=== PATIENT | female | born 1955 | race Caucasian/White ===

== ENCOUNTER 2020-10-12 05:43 | Outpatient (CLI) | payer MEDICARE ==
[~2020-10-12] VITALS: Ht 152.4 cm; Wt 58.2 kg
[2020-10-12] MEDS ORDERED: ATOR40TA70 PO (08:35)
[2020-10-12] MEDS ORDERED: ASPI-999 PO (08:35)
[2020-10-12] MEDS ORDERED: METF-397 PO (08:35)
[2020-10-12] MEDS ORDERED: LISI1TAB46 PO (08:35)
== END 2020-10-12 08:59 | disposition home or self-care (01) ==
LOC: PREOP 05:43
PROVIDERS: ATTEND Surgery
DX: Z01.818 Encounter for other preprocedural examination (principal)

== ENCOUNTER 2020-10-19 10:03 | Day surgery (SDC) | payer MEDICARE, OTHER ==
[2020-10-19] VITALS (7 sets, daily range): BP systolic 13–135; BP diastolic 51–62
[~2020-10-19] VITALS: Ht 152.7 cm; Wt 58.2 kg
[~2020-10-19 10:03] MED LIST: ASPI-999 PO; ATOR40TA70 PO; LISI1TAB46 PO; METF-397 PO
[2020-10-19] MEDS ORDERED: LACTATED RINGERS 1,000 ML IV STA (10:19)
[2020-10-19] MEDS ORDERED: PROPOFOL INJECTION 50 ML IV ONE (11:07)
--- NOTE | 2020-10-19 11:35 | Endoscopy Discharge Instruct ---
Endo Procedure/Findings Findings 1.: Polyp 2.: Internal Hemorrhoids Discharge Instructions - Activity: You might feel a little sleepy until tomorrow. This is due to the medicine you received to relax you. Until tomorrow, you should: NOT drive a car, operate machinery or power tools. NOT drink any alcoholic beverages. NOT make any important decisions or sign importortant papers. Do not return to work until tomorrow, unless otherwise instructed. Resume previous activities tomorrow. Diet: Start by taking liquids. If you tolerate liquids, advance to solid food. 1.: Colonscopy in 5 years Notify Physician - If you experience excessive bleeding, unusual abdominal pain, fever, or chest pain, contact your doctor immediately. CHAVEZ BURNETT DO Oct 19, 2020 11:35
--- NOTE | 2020-10-19 11:35 | Progress Note-Post Operative ---
Post-Operative Progess Note Surgeon (s)/Tree Chipper (s) Surgeon CHAVEZ BURNETT DO Tree Chipper: none Pre-Operative Diagnosis SCREENING Post-Operative Diagnosis polyp int hemorrhoids Procedure & Operative Findings Date of Procedure 10/19/20 Procedure Performed/Findings After informed consent was obtained, the patient was brought to the endoscopy suite and placed in the bed in the left lateral decubitus position. She was administered IV sedation by the LACROSSE COACH, who then monitored her vitals the entire time, heart rate, blood pressure and pulse ox and the scope was inserted, started the colonoscopy. Pushed all the way into about 150 cm to get all the way to cecum, took a picture of the appendiceal orifice, noted the ileocecal valve and then slowly withdrew the scope, insufflating to look circumferentiallly at the burdick. Starting in the cecum, up the ascending colon to the hepatic flexure, then down the transverse colon, splenic flexure, into the descending colon. Saw a polyp in the descending colon and did a snare polypectomy to remove it. Then continued down into the sigmoid and finally into the rectum, retroflexed in the rectal vault, saw some minimal internal hemorrhoids and took a picture of this. Then removed the scope. The patient tolerated the procedure and she recovered in the endoscopy suite. Anesthesia Type IV sedation by LACROSSE COACH Estimated Blood Loss Estimated blood loss (mL): scant Specimens/Packing Specimens Removed desc colon polyp CHAVEZ BURNETT DO Oct 19, 2020 11:35
--- NOTE | 2020-10-19 11:39 | Anesthesia-General Post-Op ---
MAC Patient Condition Mental Status/LOC: Same as Preop Cardiovascular: Satisfactory Nausea/Vomiting: Absent Respiratory: Satisfactory Pain: Controlled Complications: Absent Post Op Complications Complications None Follow Up Care/Instructions Patient Instructions None needed. Anesthesiology Discharge Order Discharge Order Patient is doing well, no complaints, stable vital signs, no apparent adverse anesthesia problems. No complications reported per nursing. FAM COHN CRNA Oct 19, 2020 11:39
== END 2020-10-19 12:30 | disposition home or self-care (01) ==
LOC: ENDO 10:03
PROVIDERS: ATTEND Surgery
DX: Z12.11 Encounter for screening for malignant neoplasm of colon (principal); K63.5 Polyp of colon; K64.8 Other hemorrhoids; E11.9 Type 2 diabetes mellitus without complications; E78.00 Pure hypercholesterolemia, unspecified; I10 Essential (primary) hypertension; Z79.82 Long term (current) use of aspirin; Z79.84 Long term (current) use of oral hypoglycemic drugs; Z79.899 Other long term (current) drug therapy
CPT/HCPCS: 82947; 88305

== ENCOUNTER 2023-02-20 17:43 | Inpatient (IN) | payer MEDICARE, OTHER ==
[~2023-02-20] VITALS: Ht 157.5 cm; Wt 57.5 kg
[2023-02-20] MEDS ORDERED: Tetanus/Diphtheria/Pertussis (Acell) ADULT Vaccine 0.5 ML IM ONE (18:00)
[2023-02-20] MEDS ORDERED: fentaNYL INJECTION 100 MCG/2 ML VIAL IVP STA (18:16)
--- NOTE | 2023-02-20 18:23 | Diagnostic Imaging Report ---
INDICATION: Right leg pain post injury. AP and lateral views of the right tibia and fibula are obtained at 6:09 PM There is an oblique fracture of the distal fibula at the ankle joint level. There is a fracture of the medial malleolus of the distal tibia with lateral displacement of the talus relative to the tibia. Proximal portions of the tibia and fibula are intact. IMPRESSION: 1. There are distal tibial and fibular fractures at the ankle joint, see separate dictation. The proximal portions of the tibia and fibula are intact. Dictated by: Dictated on workstation # [id number]
--- NOTE | 2023-02-20 18:26 | Diagnostic Imaging Report ---
INDICATION: Right ankle pain post injury AP, oblique, and lateral views of the right foot are obtained. There is an acute oblique fracture of the distal fibula with about 6 mm of displacement. There is a horizontal fracture of the medial malleolus of the distal tibia with displacement by about 7 mm. There is lateral subluxation of the talus relative to the distal tibia. IMPRESSION: Acute distal tibial and fibular fractures as above with displacement and lateral subluxation of the talus relative to the tibia. Dictated by: Dictated on workstation # [id number]
[2023-02-20] MEDS ORDERED: NS IV 1000 ML 1,000 ML IV SCH (18:30)
[2023-02-20] MEDS ORDERED: LIDOCAINE UROJET 2% GEL 10 ML PKG TOP ONE (18:30)
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
[2023-02-20 18:35] LABS: BASOPHILS # (AUTO) 0.1 10^3/uL (0.0-0.1); BASOPHILS % (AUTO) 1 % (0-10); EOSINOPHILS # (AUTO) 0.2 10^3/uL (0.0-0.3); EOSINOPHILS % (AUTO) 1 % (0-10); HEMATOCRIT 39 % (35-52); LYMPHOCYTES # (AUTO) 2.1 10^3/uL (1.0-4.0); LYMPHOCYTES % (AUTO) 13 % (12-44); MEAN CORPUSCULAR HEMOGLOBIN 30 pg (25-34); MEAN CORPUSCULAR HGB CONC 33 g/dL (32-36); MEAN CORPUSCULAR VOLUME 90 fL (80-99); MEAN PLATELET VOLUME 9.1 fL (9.0-12.2); MONOCYTES # (AUTO) 0.6 10^3/uL (0.0-1.0); MONOCYTES % (AUTO) 4 % (0-12); NEUTROPHILS # (AUTO) 12.8 10^3/uL (1.8-7.8); NEUTROPHILS % (AUTO) 81 % (42-75); PLATELET COUNT 342 10^3/uL (130-400); WHITE BLOOD COUNT 15.9 10^3/uL (4.3-11.0)
[2023-02-20] MEDS ORDERED: MUPIROCIN 2% OINTMENT 22 GM TUBE ONE (18:35)
--- NOTE | 2023-02-20 18:37 | Diagnostic Imaging Report ---
HISTORY: Right foot pain TECHNIQUE: 3 views of the right foot COMPARISON: None FINDINGS: There is an oblique fracture of the right great toe proximal phalangeal shaft with minimal displacement. There does appear to be a nondisplaced fracture of the 2nd toe middle phalangeal shaft and head. There is a minimally displaced transverse fracture across the 5th toe middle phalangeal shaft. There is a questionable fracture of the 3rd metatarsal base, which would be nondisplaced. There are fractures about the distal tibia and fibula as well as malalignment, which is better seen on the concurrent ankle radiographs. IMPRESSION: 1. Fractures of the right 1st, 2nd, and 5th toes. Suspected fracture of the 3rd metatarsal base. 2. Distal tibia and fibula fractures are better seen on the concurrent ankle radiographs. Dictated by: Dictated on workstation # [id number]
[2023-02-20] MEDS: MUPIROCIN 2% OINTMENT 22 GM TUBE TOP SCH (18:39)
[2023-02-20 18:46] LABS: ALBUMIN 4.1 GM/DL (3.2-4.5); POTASSIUM 4.6 MMOL/L (3.6-5.0)
[2023-02-20 18:47] LABS: CALCIUM 9.2 MG/DL (8.5-10.1)
[2023-02-20 18:48] LABS: INR 0.9 (0.8-1.4); PROTHROMBIN TIME PATIENT 12.6 SEC (12.2-14.7)
[2023-02-20 18:49] LABS: TOTAL PROTEIN 7.9 GM/DL (6.4-8.2)
[2023-02-20 18:51] LABS: BILIRUBIN,TOTAL 0.5 MG/DL (0.1-1.0)
[2023-02-20 18:52] LABS: CREATININE SERUM 1.58 MG/DL (0.60-1.30)
[2023-02-20 18:55] LABS: BAND NEUTROPHILS 0 %; BASOPHILS % (MANUAL) 0 %; EOSINOPHILS % (MANUAL) 1 %; LYMPHOCYTES % (MANUAL) 10 %; MONOCYTES % (MANUAL) 3 %; NEUTROPHILS % (MANUAL) 86 %; RBC MORPH NORMAL
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
[2023-02-20 19:29] LABS: BILIRUBIN,URINE NEGATIVE (NEGATIVE); CLARITY,URINE CLEAR; COLOR,URINE YELLOW; GLUCOSE, URINE (UA) NEGATIVE (NEGATIVE); KETONES,URINE TRACE (NEGATIVE); LEUKOCYTE ESTERASE ,URINE NEGATIVE (NEGATIVE); NITRITE,URINE NEGATIVE (NEGATIVE); PH,URINE 6.5 (5-9); PROTEIN,URINE 2+ (NEGATIVE); RBC,URINE 0-2 /HPF; WBC,URINE RARE /HPF
[2023-02-20 19:30] LABS: BACTERIA,URINE NEGATIVE /HPF
[2023-02-20 19:55] VITALS: BP 188/80
[2023-02-20] MEDS ORDERED: diphenhydrAMINE INJ 50 MG/ML VIAL IVP PRN (20:00)
[2023-02-20] MEDS ORDERED: ONDANSETRON 4 MG ORAL DISSOLVE TABLET PO PRN (20:00)
[2023-02-20] MEDS ORDERED: cloNIDine 0.1 MG TABLET PO PRN (20:00)
[2023-02-20] MEDS ORDERED: CALCIUM CARBONATE 500 MG CHEW TABLET PO PRN (20:00)
[2023-02-20] MEDS ORDERED: ANTACID SUSPENSION 30 ML UDC PO PRN (20:00)
[2023-02-20] MEDS ORDERED: ONDANSETRON INJECTION 4 MG/2 ML (SDV) IV PRN (20:00)
[2023-02-20] MEDS ORDERED: MILK OF MAGNESIA 400 MG/5 ML 30 ML UDC PO PRN (20:00)
[2023-02-20] MEDS ORDERED: LACTULOSE SYRUP 10GM/15ML 30ML UDC PO PRN (20:00)
[2023-02-20] MEDS ORDERED: diphenhydrAMINE 25 MG TABLET PO PRN (20:00)
[2023-02-20] MEDS ORDERED: BISACODYL 10 MG SUPPOSITORY PR PRN (20:00)
[2023-02-20] MEDS ORDERED: RT-Ipratropium/Albuterol NEB 3 ML VIAL INH PRN (20:15)
[2023-02-20 20:35] VITALS: BP 147/97
[2023-02-20] MEDS: inSUlin ASPART 1 UNIT/0.01 ML (PER UNIT) SC SCH (20:55)
[2023-02-20] MEDS ORDERED: NS IV 1000 ML 1,000 ML ONE (21:02)
[2023-02-20] MEDS ORDERED: oxyCODONE IMMEDIATE RELEASE 5 MG TABLET ONE (21:03)
[2023-02-20] MEDS: oxyCODONE IMMEDIATE RELEASE 5 MG TABLET PO PRN (21:06)
[2023-02-20] MEDS: NS IV 1000 ML 1,000 ML IV SCH (21:07)
[2023-02-20] MEDS: ENOXAPARIN 40 MG/0.4 ML SYRINGE SC SCH (22:13)
[2023-02-20] MEDS: HYDROmorphone INJECTION 2 MG/ML VIAL IV PRN (22:13)
[2023-02-20] MEDS: MELATONIN 3 MG TABLET PO PRN (22:14)
[2023-02-20] MEDS: SENNOSIDES 8.6 MG TABLET PO SCH (22:26)
[2023-02-20] MEDS: DOCUSATE SODIUM 100 MG CAPSULE PO SCH (22:26)
[2023-02-20 23:06] VITALS: BP 154/78
[2023-02-21] VITALS (13 sets, daily range): BP systolic 112–168; BP diastolic 52–81
[2023-02-21] MEDS: HYDROmorphone INJECTION 2 MG/ML VIAL IV PRN ×3 (00:20→23:49)
[2023-02-21] MEDS: oxyCODONE IMMEDIATE RELEASE 5 MG TABLET PO PRN ×4 (03:14→22:14)
[2023-02-21] MEDS: inSUlin ASPART 1 UNIT/0.01 ML (PER UNIT) SC SCH ×4 (05:15→20:11)
[2023-02-21 07:07] LABS: BASOPHILS # (AUTO) 0.1 10^3/uL (0.0-0.1); BASOPHILS % (AUTO) 1 % (0-10); EOSINOPHILS % (AUTO) 0 % (0-10); HEMATOCRIT 34 % (35-52); HEMOGLOBIN 10.9 g/dL (11.5-16.0); LYMPHOCYTES # (AUTO) 1.6 10^3/uL (1.0-4.0); LYMPHOCYTES % (AUTO) 15 % (12-44); MEAN CORPUSCULAR HEMOGLOBIN 30 pg (25-34); MEAN CORPUSCULAR HGB CONC 33 g/dL (32-36); MEAN CORPUSCULAR VOLUME 92 fL (80-99); MEAN PLATELET VOLUME 9.4 fL (9.0-12.2); MONOCYTES # (AUTO) 0.6 10^3/uL (0.0-1.0); MONOCYTES % (AUTO) 6 % (0-12); NEUTROPHILS # (AUTO) 8.4 10^3/uL (1.8-7.8); NEUTROPHILS % (AUTO) 78 % (42-75); PLATELET COUNT 285 10^3/uL (130-400); WHITE BLOOD COUNT 10.8 10^3/uL (4.3-11.0)
[2023-02-21] MEDS ORDERED: FLU HIGH DOSE (65+ YOA) 240 MCG/0.7 ML 2023-24 (FLUZONE) IM ONE (07:30)
[2023-02-21 07:31] LABS: ALBUMIN 3.5 GM/DL (3.2-4.5); BILIRUBIN,TOTAL 0.6 MG/DL (0.1-1.0); CALCIUM 8.4 MG/DL (8.5-10.1); CREATININE SERUM 1.29 MG/DL (0.60-1.30); POTASSIUM 4.6 MMOL/L (3.6-5.0); TOTAL PROTEIN 6.6 GM/DL (6.4-8.2)
[2023-02-21] MEDS: MUPIROCIN 2% OINTMENT 22 GM TUBE TOP SCH ×2 (07:54→19:57)
[2023-02-21] MEDS: SENNOSIDES 8.6 MG TABLET PO SCH ×2 (07:54→20:11)
[2023-02-21] MEDS: DOCUSATE SODIUM 100 MG CAPSULE PO SCH ×2 (07:54→20:11)
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
[2023-02-21] MEDS ORDERED: ceFAZolin INJECTION 2,000 MG in NS (IVPB) 50 ML 50 ML IV ONE (09:30)
[2023-02-21] MEDS: NS IV 1000 ML 1,000 ML IV SCH ×2 (09:34→22:12)
[2023-02-21] MEDS ORDERED: BUPIVACAINE 0.25% 30 ML VIAL ONE (10:00)
[2023-02-21] MEDS ORDERED: SEVOFLURANE (ULTANE) 15 ML INHAL SOLN ONE ×2 (10:37→14:07)
[2023-02-21] MEDS ORDERED: proPOfol INJECTION 200 MG/20 ML VIAL IV ONE (10:37)
[2023-02-21] MEDS ORDERED: MIDAZOLAM INJ 2 MG/2 ML VIAL ONE (10:37)
[2023-02-21] MEDS ORDERED: fentaNYL INJECTION 100 MCG/2 ML VIAL ONE (10:37)
[2023-02-21] MEDS ORDERED: LIDOCAINE PF 2% 5 ML VIAL ONE (10:37)
[2023-02-21] MEDS ORDERED: ceFAZolin 1,000 MG VIAL IV ONE (11:45)
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
[2023-02-21] MEDS ORDERED: PHYT1CAP5 PO (12:17)
[2023-02-21] MEDS ORDERED: [UNRECOGNIZED DRUG - OTHER] PO (12:17)
[2023-02-21] MEDS ORDERED: BERBERINE PO (12:17)
[2023-02-21] MEDS ORDERED: ceFAZolin INJECTION 2,000 MG ONE (12:24)
[2023-02-21] MEDS ORDERED: NS (IVPB) 50 ML 50 ML ONE (12:24)
[2023-02-21] MEDS: LACTATED RINGERS 1,000 ML 1,000 ML IV PRN ×2 (12:29→13:35)
[2023-02-21] MEDS ORDERED: BUPIVACAINE 0.25% 30 ML VIAL INJ ONE (13:03)
[2023-02-21] MEDS ORDERED: BACITRACIN OINTMENT 28 GM TUBE ONE (13:41)
[2023-02-21] MEDS ORDERED: BACITRACIN OINTMENT 28 GM TUBE TOP ONE (13:42)
--- NOTE | 2023-02-21 14:20 | Anesthesia-General Post-Op ---
General Patient Condition Mental Status/LOC: Same as Preop Cardiovascular: Satisfactory Nausea/Vomiting: Absent Respiratory: Satisfactory Pain: Controlled Complications: Absent Post Op Complications Complications None Follow Up Care/Instructions Patient Instructions None needed. Anesthesia/Patient Condition Patient Condition Patient is doing well, no complaints, stable vital signs, no apparent adverse anesthesia problems. No complications reported per nursing. CORINNA KING CRNA Feb 21, 2023 14:20
[2023-02-21] MEDS ORDERED: HYDROmorphone INJECTION 2 MG/ML VIAL ONE (14:27)
[2023-02-21] MEDS ORDERED: fentaNYL INJECTION 100 MCG/2 ML VIAL IVP ONE (14:30)
[2023-02-21] MEDS ORDERED: ONDANSETRON INJECTION 4 MG/2 ML (SDV) IVP PRN (14:30)
[2023-02-21] MEDS ORDERED: HYDROmorphone INJECTION 2 MG/ML VIAL IV ONE (14:30)
--- NOTE | 2023-02-21 14:33 | Operative Report - Ortho ---
Operative Report Surgeon (s)/Elderly Companion (s) Surgeon EVELIN CORNEJO MD Elderly Companion n/a Pre-Operative Diagnosis R Bimalleolar Ankle Fracture with Syndesmotic Injury/R Foot Fractures Post-Operative Diagnosis same Operative Report Date of Procedure: Feb 21, 2023 Name of Procedure Performed: 1) Open Reduction and Internal Fixation of Right Bimalleolar Ankle Fracture 2) Open Reduction and Internal Fixation of Right Syndesmotic Injury 3) Closed Treatment of Right 3rd Metatarsal Base fracture and Great toe, 2nd toe, and 5th toe fractures Description & Findings After obtaining informed consent and marking the patient, patient did receive intravenous antibiotics. Taken to the operating room and general anesthesia was induced. Surgical timeout was taken. The right lower extremity was prepped and draped in the usual sterile fashion. Attention was initially turned to the fibula fracture, incision was made centered over the fracture. Dissection was carried down to the fracture and a periosteal elevator was used to expose the fibula proximally and distally. The fracture was provisionally reduced using clamps. A [employer] distal fibular plate was selected and placed. A wire was placed distally to position and temporarily hold the plate. A nonlocking screw was placed in the diaphysis of the fibula. A nonlocking screw was then placed d istally. C-arm demonstrated good position of the plate with near anatomic reduction of the fracture. Wire through the plate was removed. Locking screws were used to fill the distal holes of the plate. Two additional locking screws were placed in the proximal portion of the plate. Wires and clamp were removed. C-arm demonstrated appropriate position of the plate and screws and maintained reduction of the fracture. Attention was turned to the medial side. 2 K-wires for 4.0 cannulated screws were placed percutaneously through the medial malleolar fragment and across the fracture site. The first wire was anterior and the second wire was posterior. C-arm was used to confirm position of the wires. After drilling the distal cortex, 2 4.0 mm cannulated screws were then placed over the wires; the anterior screw measured 34 mm and the posterior screw was 44 mm and a washer was added to the anterior one for compression purposes. Wires were removed. Stress C-arm images were obtained and demonstrated widening of the mortise. Periarticular clamp was placed and the syndemosis was reduced. Drill was used to cross 3 cortices. a 46 mm 3.5 screw was placed for syndesmotic fixation. Clamp was removed and syndesmosis reduction was maintained. The patient did have a nondisplaced fracture of the 3rd metatarsal base as well as fractures of the proximal phalanx of the great toe and middle phalanges of the 2nd and 5th toes. These will all be treated in closed fashion. C-arm images in the AP, mortise, and lateral views and demonstrated appropriate reduction of the fractures and hardware in good position. Images were transferred to PACS. Wounds were irrigated with normal saline. Closed with 0 vicryl, 3-0 vicryl, and a combination of 3-0 and 4-0 nylon. Wounds were in jected with local anesthetic. Dressed with xeroform, 4x4s, ABD, cast padding, soft roll, posterior splint, and VARUN wrap. Patient tolerated the procedure well and was stable to the recovery room. Anesthesia Type General Estimated Blood Loss minimal Specimen(s) collected/removed None EVELIN CORNEJO MD Feb 21, 2023 14:33
--- NOTE | 2023-02-21 17:44 | Diagnostic Imaging Report ---
INDICATION: Right ankle fractures, ORIF Intraoperative fluoroscopy views were obtained with the portable intensifier in surgery during ORIF of right ankle fractures. 65.5 seconds of fluoroscopy time were used. 3 views were obtained, 1.45 mGy exposure Intraoperative views demonstrate plate and screws across the distal fibular fracture in anatomic alignment with 2 screws across the medial malleolar fracture of the distal tibia. Single fusion screw between the tibia and fibula is noted. The alignment appears anatomic. IMPRESSION: Anatomic alignment status post ORIF of right ankle fractures. Dictated by: Dictated on workstation # [id number]
[2023-02-21] MEDS: ACETAMINOPHEN 325 MG TABLET PO PRN ×2 (17:59→22:14)
[2023-02-21] MEDS: ENOXAPARIN 40 MG/0.4 ML SYRINGE SC SCH (20:06)
[2023-02-21] MEDS: MELATONIN 3 MG TABLET PO PRN (22:14)
[2023-02-22 03:44] VITALS: BP 133/73
[2023-02-22] MEDS: oxyCODONE IMMEDIATE RELEASE 5 MG TABLET PO PRN ×3 (05:36→21:58)
[2023-02-22] MEDS: NS IV 1000 ML 1,000 ML IV SCH ×2 (05:37→19:20)
[2023-02-22] MEDS: inSUlin ASPART 1 UNIT/0.01 ML (PER UNIT) SC SCH ×4 (05:40→20:06)
[2023-02-22 05:55] LABS: BASOPHILS # (AUTO) 0.1 10^3/uL (0.0-0.1); BASOPHILS % (AUTO) 1 % (0-10); EOSINOPHILS # (AUTO) 0.1 10^3/uL (0.0-0.3); EOSINOPHILS % (AUTO) 1 % (0-10); HEMATOCRIT 31 % (35-52); HEMOGLOBIN 9.9 g/dL (11.5-16.0); LYMPHOCYTES # (AUTO) 1.2 10^3/uL (1.0-4.0); LYMPHOCYTES % (AUTO) 12 % (12-44); MEAN CORPUSCULAR HEMOGLOBIN 29 pg (25-34); MEAN CORPUSCULAR HGB CONC 32 g/dL (32-36); MEAN CORPUSCULAR VOLUME 91 fL (80-99); MEAN PLATELET VOLUME 9.8 fL (9.0-12.2); MONOCYTES # (AUTO) 0.6 10^3/uL (0.0-1.0); MONOCYTES % (AUTO) 6 % (0-12); NEUTROPHILS % (AUTO) 80 % (42-75); PLATELET COUNT 234 10^3/uL (130-400)
[2023-02-22 06:13] LABS: ALBUMIN 3.1 GM/DL (3.2-4.5); BILIRUBIN,TOTAL 0.4 MG/DL (0.1-1.0); CALCIUM 8.1 MG/DL (8.5-10.1); CREATININE SERUM 1.37 MG/DL (0.60-1.30); POTASSIUM 4.6 MMOL/L (3.6-5.0); TOTAL PROTEIN 6.1 GM/DL (6.4-8.2)
[2023-02-22 07:30] VITALS: BP 131/71
[2023-02-22] MEDS: MUPIROCIN 2% OINTMENT 22 GM TUBE TOP SCH ×2 (08:31→19:20)
[2023-02-22] MEDS: SENNOSIDES 8.6 MG TABLET PO SCH ×2 (08:31→19:20)
[2023-02-22] MEDS: DOCUSATE SODIUM 100 MG CAPSULE PO SCH ×2 (08:31→19:20)
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
[2023-02-22] MEDS: HYDROmorphone INJECTION 2 MG/ML VIAL IV PRN (08:57)
[2023-02-22 11:19] VITALS: BP 129/70
--- NOTE | 2023-02-22 12:19 | Progress Note - Ortho ---
Progress Note Subjective Date of Exam 02/22/23 Chief Complaint POD #1 ORIF of R Bimalleolar ankle fracture HPI/Events since last exam having some difficulty with pain, concerned about being discharged Review of Systems - Allergies: Coded Allergies: AUDREYANo Known Allergies (Verified Allergy, Unknown, 01/05/07) Home Meds Reported Medications [Bloodsyl] No Conflict Check, 1 EA PO DAILY 02/21/23 Phytosterol/Pantethine (Cholestoff Complete 300Mg Sfgl) 300 Mg-100 Mg Capsule, 1 EACH PO 1800 W/MEAL, CAP 02/21/23 [Berberine] No Conflict Check, 1 EA PO BID WITH MEALS 02/21/23 Aspirin (Aspirin) 81 Mg Tab.chew, 81 MG PO DAILY, TAB 10/12/20 Discontinued Reported Medications Metformin HCl (Metformin HCl) 500 Mg Tablet, 500 MG PO BID, TAB 10/12/20 Lisinopril/Hydrochlorothiazide (Lisinopril-Hctz 20-12.5 mg Tab) 1 Each Tablet, 1 EACH PO DAILY, TAB 10/12/20 Atorvastatin Calcium (Atorvastatin Calcium) 40 Mg Tablet, 40 MG PO HS, TAB 10/12/20 Objective Exam Right Ankle: Splint clean, dry, and intact, toes flex and extend, cap refill brisk Vital Signs Vital Signs Date Time Temp Pulse Resp B/P (MAP) Pulse Ox O2 Delivery O2 Flow Rate FiO2 02/22/23 11:19 36.6 70 17 129/70 (89) 99 Room Air 02/22/23 11:06 94 Room Air 0.00 02/22/23 08:00 98 Room Air 02/22/23 07:30 36.7 72 17 131/71 (91) 98 Room Air 02/22/23 03:44 36.8 81 16 133/73 (93) 96 Room Air 0.00 0.00 02/21/23 23:06 36.2 73 16 125/71 (89) 98 Room Air 02/21/23 20:20 36.5 85 18 112/68 (83) 97 Room Air 02/21/23 20:13 Room Air 02/21/23 15:21 36.5 62 18 134/58 (83) 100 Room Air 02/21/23 15:15 Room Air 02/21/23 15:10 36.1 20 120/62 (81) 100 Room Air 02/21/23 15:00 20 120/62 (81) 100 Room Air 02/21/23 15:00 Room Air 02/21/23 14:50 20 133/54 (80) 100 OxyMask 10.00 02/21/23 14:45 Face Tent 10.00 02/21/23 14:40 20 137/52 (80) 100 Face Tent 10.00 02/21/23 14:30 Face Tent 10.00 02/21/23 14:30 20 133/55 (81) 100 Face Tent 10.00 02/21/23 14:20 20 125/58 (80) 100 Face Tent 10.00 02/21/23 14:15 Face Tent 10.00 02/21/23 14:15 36.1 20 120/57 (78) 100 Face Tent 10.00 I & O 02/22/23 07:00 Intake Total 2400 ml Output Total 2050 ml Balance 350 ml Lab Results Laboratory Tests 02/21/23 20:06: Glucometer 118H 02/22/23 05:25: Glucometer 128H 02/22/23 05:32: White Blood Count 10.0, Red Blood Count 3.37L, Hemoglobin 9.9L, Hematocrit 31L, Mean Corpuscular Volume 91, Mean Corpuscular Hemoglobin 29, Mean Corpuscular Hemoglobin Concent 32, Red Cell Distribution Width 13.7, Platelet Count 234, Mean Platelet Volume 9.8, Immature Granulocyte % (Auto) 0, Neutrophils (%) (Auto) 80H, Lymphocytes (%) (Auto) 12, Monocytes (%) (Auto) 6, Eosinophils (%) (Auto) 1, Basophils (%) (Auto) 1, Neutrophils # (Auto) 8.0H, Lymphocytes # (Auto) 1.2, Monocytes # (Auto) 0.6, Eosinophils # (Auto) 0.1, Basophils # (Auto) 0.1, Immature Granulocyte # (Auto) 0.0, Sodium Level 138, Potassium Level 4.6, Chloride Level 105, Carbon Dioxide Level 23, Anion Gap 10, Blood Urea Nitrogen 15, Creatinine 1.37H, Estimat Glomerular Filtration Rate 42, BUN/Creatinine Ratio 11, Glucose Level 163H, Calcium Level 8.1L, Corrected Calcium 8.8, Total Bilirubin 0.4, Aspartate Amino Transf (AST/SGOT) 18, Alanine Aminotransferase (ALT/SGPT) 11, Alkaline Phosphatase 76, Total Protein 6.1L, Albumin 3.1L 02/22/23 10:33: Glucometer 103 Microbiology 02/20/23 MRSA Screen - Final, Complete MRSA not isolated Assessment and Plan Assessment Right Bimalleolar Ankle Fracture Multiple Foot Fractures Crush Injury with open wounds on right foot Problem List Right Bimalleolar Ankle Fracture Multiple Foot Fractures Crush Injury with open wounds on right foot Plan NWB on Right leg Continue Splint Begin dressing changes on foot tomorrow May require dressing changes for extended period of time; consider swing bed Final Diagonsis Right Bimalleolar Ankle Fracture Multiple Foot Fractures Crush Injury with open wounds on right foot Level of the visit: Level 3 (global) Clinical Quality Measures DVT/VTE Risk/Contraindication: Contraindications-Mechi: Other *list below* Other: fx EVELIN CORNEJO MD Feb 22, 2023 12:19
[2023-02-22 15:54] VITALS: BP 131/60
[2023-02-22 19:17] VITALS: BP 132/60
[2023-02-22] MEDS: ENOXAPARIN 40 MG/0.4 ML SYRINGE SC SCH (19:20)
[2023-02-22] MEDS: MELATONIN 3 MG TABLET PO PRN (21:58)
[2023-02-22 23:15] VITALS: BP 126/77
[2023-02-23] MEDS: HYDROmorphone INJECTION 2 MG/ML VIAL IV PRN (00:06)
[2023-02-23 05:15] LABS: BASOPHILS # (AUTO) 0.1 10^3/uL (0.0-0.1); BASOPHILS % (AUTO) 1 % (0-10); EOSINOPHILS # (AUTO) 0.2 10^3/uL (0.0-0.3); EOSINOPHILS % (AUTO) 2 % (0-10); HEMATOCRIT 31 % (35-52); LYMPHOCYTES # (AUTO) 1.5 10^3/uL (1.0-4.0); LYMPHOCYTES % (AUTO) 16 % (12-44); MEAN CORPUSCULAR HEMOGLOBIN 30 pg (25-34); MEAN CORPUSCULAR HGB CONC 32 g/dL (32-36); MEAN CORPUSCULAR VOLUME 94 fL (80-99); MEAN PLATELET VOLUME 9.4 fL (9.0-12.2); MONOCYTES # (AUTO) 0.7 10^3/uL (0.0-1.0); MONOCYTES % (AUTO) 7 % (0-12); NEUTROPHILS # (AUTO) 7.3 10^3/uL (1.8-7.8); NEUTROPHILS % (AUTO) 75 % (42-75); PLATELET COUNT 265 10^3/uL (130-400); WHITE BLOOD COUNT 9.8 10^3/uL (4.3-11.0)
[2023-02-23 05:23] LABS: POTASSIUM 4.5 MMOL/L (3.6-5.0)
[2023-02-23 05:24] LABS: CALCIUM 8.4 MG/DL (8.5-10.1)
[2023-02-23 05:25] LABS: TOTAL PROTEIN 6.2 GM/DL (6.4-8.2)
[2023-02-23 05:27] LABS: BILIRUBIN,TOTAL 0.4 MG/DL (0.1-1.0)
[2023-02-23] MEDS: inSUlin ASPART 1 UNIT/0.01 ML (PER UNIT) SC SCH ×2 (05:28→12:01)
[2023-02-23 05:29] LABS: CREATININE SERUM 1.42 MG/DL (0.60-1.30)
[2023-02-23 08:02] VITALS: BP 129/59
--- NOTE | 2023-02-23 08:43 | Progress Note - Ortho ---
Progress Note Subjective Date of Exam 02/23/23 Chief Complaint POD #2 ORIF of R Bimalleolar Ankle Fracture HPI/Events since last exam doing okay from pain standpoint, no specific issues Review of Systems - Allergies: Coded Allergies: NKANo Known Allergies (Verified Allergy, Unknown, 01/05/07) Home Meds Reported Medications [Bloodsyl] No Conflict Check, 1 EA PO DAILY 02/21/23 Phytosterol/Pantethine (Cholestoff Complete 300Mg Sfgl) 300 Mg-100 Mg Capsule, 1 EACH PO 1800 W/MEAL, CAP 02/21/23 [Berberine] No Conflict Check, 1 EA PO BID WITH MEALS 02/21/23 Aspirin (Aspirin) 81 Mg Tab.chew, 81 MG PO DAILY, TAB 10/12/20 Discontinued Reported Medications Metformin HCl (Metformin HCl) 500 Mg Tablet, 500 MG PO BID, TAB 10/12/20 Lisinopril/Hydrochlorothiazide (Lisinopril-Hctz 20-12.5 mg Tab) 1 Each Tablet, 1 EACH PO DAILY, TAB 10/12/20 Atorvastatin Calcium (Atorvastatin Calcium) 40 Mg Tablet, 40 MG PO HS, TAB 10/12/20 Objective Exam R Ankle: Splint in place, toes flex and extend, sensation grossly intact to light touch, cap refill present Vital Signs Vital Signs Date Time Temp Pulse Resp B/P (MAP) Pulse Ox O2 Delivery O2 Flow Rate FiO2 02/23/23 08:02 36.6 76 17 129/59 (82) 96 Room Air 02/22/23 23:15 36.2 81 20 126/77 (93) 97 Room Air 02/22/23 19:33 Room Air 02/22/23 19:17 36.9 80 18 132/60 (84) 94 Room Air 02/22/23 15:54 36.7 75 16 131/60 (83) 99 Room Air 02/22/23 11:19 36.6 70 17 129/70 (89) 99 Room Air 02/22/23 11:06 94 Room Air 0.00 I & O 02/23/23 07:00 Intake Total 2130 ml Output Total 2450 ml Balance -320 ml Lab Results Laboratory Tests 02/22/23 10:33: Glucometer 103 02/22/23 15:59: Glucometer 111H 02/22/23 20:02: Glucometer 107 02/23/23 05:08: White Blood Count 9.8, Red Blood Count 3.34L, Hemoglobin 10.0L, Hematocrit 31L, Mean Corpuscular Volume 94, Mean Corpuscular Hemoglobin 30, Mean Corpuscular Hemoglobin Concent 32, Red Cell Distribution Width 13.8, Platelet Count 265, Mean Platelet Volume 9.4, Immature Granulocyte % (Auto) 0, Neutrophils (%) (Auto) 75, Lymphocytes (%) (Auto) 16, Monocytes (%) (Auto) 7, Eosinophils (%) (Auto) 2, Basophils (%) (Auto) 1, Neutrophils # (Auto) 7.3, Lymphocytes # (Auto) 1.5, Monocytes # (Auto) 0.7, Eosinophils # (Auto) 0.2, Basophils # (Auto) 0.1, Immature Granulocyte # (Auto) 0.0, Sodium Level 137, Potassium Level 4.5, Chloride Level 104, Carbon Dioxide Level 22, Anion Gap 11, Blood Urea Nitrogen 1 5, Creatinine 1.42H, Estimat Glomerular Filtration Rate 41, BUN/Creatinine Ratio 11, Glucose Level 105, Calcium Level 8.4L, Corrected Calcium 9.2, Total Bilirubin 0.4, Aspartate Amino Transf (AST/SGOT) 19, Alanine Aminotransferase (ALT/SGPT) 9, Alkaline Phosphatase 66, Total Protein 6.2L, Albumin 3.0L Microbiology 02/20/23 MRSA Screen - Final, Complete MRSA not isolated Assessment and Plan Assessment R Bimalleolar Ankle Fx s/p ORIF Multiple R Foot Fxs Open wounds after crush injury to right foot Problem List R Bimalleolar Ankle Fx s/p ORIF Multiple R Foot Fxs Open wounds after crush injury to right foot Plan NWB on R Leg Splint versus Cam boot to facilitate dressing changes I have consulted Dr. Churchill for her expertise on wound care in regards to the right foot Final Diagonsis R Bimalleolar Ankle Fx s/p ORIF Multiple R Foot Fxs Open wounds after crush injury to right foot Level of the visit: Level 3 (global) Clinical Quality Measures DVT/VTE Risk/Contraindication: Contraindications-Mechi: Other *list below* Other: fx EVELIN CORNEJO MD Feb 23, 2023 08:43
[2023-02-23] MEDS: SENNOSIDES 8.6 MG TABLET PO SCH (08:52)
[2023-02-23] MEDS: DOCUSATE SODIUM 100 MG CAPSULE PO SCH (08:52)
[2023-02-23] MEDS: oxyCODONE IMMEDIATE RELEASE 5 MG TABLET PO PRN ×2 (09:00→13:33)
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
[2023-02-23] MEDS: NS IV 1000 ML 1,000 ML IV SCH (09:23)
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
[2023-02-23 11:54] VITALS: BP 133/63
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
== END 2023-02-23 13:35 | DRG 494 ==
LOC: EDUNIT# 17:43 → ER 17:45 → 4TH 19:47
PROVIDERS: ADMIT Internal Medicine; ATTEND Internal Medicine
PROC: 2W3SX1Z Immobilization of Right Foot using Splint (ICD-10-PCS; 2023-02-20)
PROC: 0SSF04Z Reposition Right Ankle Joint with Internal Fixation Device, Open Approach (ICD-10-PCS; 2023-02-21)
PROC: 0QSQ34Z Reposition Right Toe Phalanx with Internal Fixation Device, Percutaneous Approach (ICD-10-PCS; 2023-02-21)
PROC: 0QSG04Z Reposition Right Tibia with Internal Fixation Device, Open Approach (ICD-10-PCS; principal; 2023-02-21 12:29)
DX: S82.841A Displaced bimalleolar fracture of right lower leg, initial encounter for closed fracture (principal); S92.331A Displaced fracture of third metatarsal bone, right foot, initial encounter for closed fracture; Z79.82 Long term (current) use of aspirin; Z79.84 Long term (current) use of oral hypoglycemic drugs; Z79.899 Other long term (current) drug therapy; E78.00 Pure hypercholesterolemia, unspecified; I10 Essential (primary) hypertension; G89.29 Other chronic pain; M54.9 Dorsalgia, unspecified; E11.9 Type 2 diabetes mellitus without complications; S92.411A Displaced fracture of proximal phalanx of right great toe, initial encounter for closed fracture; S92.521A Displaced fracture of middle phalanx of right lesser toe(s), initial encounter for closed fracture; S93.431A Sprain of tibiofibular ligament of right ankle, initial encounter; V49.9XXA Car occupant (driver) (passenger) injured in unspecified traffic accident, initial encounter; Y92.9 Unspecified place or not applicable; Z87.891 Personal history of nicotine dependence
CPT/HCPCS: 36415; 73590; 73610; 73630; 76000; 80053; 81000; 82947; 85007; 85025; 85027; 85610; 85730; 87081; 90471; 90715; 93041; 94760; 96361; 96374

== ENCOUNTER 2023-02-23 10:27 | Inpatient (IN) | payer MEDICARE, OTHER ==
[~2023-02-23] VITALS: Ht 157.5 cm; Wt 58.1 kg
[~2023-02-23 10:27] MED LIST changes: +BERBERINE PO; +PHYT1CAP5 PO; +[UNRECOGNIZED DRUG - OTHER] PO
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
[2023-02-23] MEDS ORDERED: ONDANSETRON 4 MG ORAL DISSOLVE TABLET PO PRN ×2 (11:45→16:15)
[2023-02-23] MEDS ORDERED: BISACODYL 10 MG SUPPOSITORY PR PRN ×2 (11:45→16:15)
[2023-02-23] MEDS ORDERED: guaiFENesin/CODEINE 10ML UDC PO PRN (11:45)
[2023-02-23] MEDS ORDERED: CALCIUM CARBONATE 500 MG CHEW TABLET PO PRN ×2 (11:45→16:15)
[2023-02-23] MEDS ORDERED: MELATONIN 3 MG TABLET PO PRN (11:45)
[2023-02-23] MEDS ORDERED: Sodium Phosphate/Sodium Biphosphate ADULT enema PR PRN (11:45)
[2023-02-23] MEDS ORDERED: LACTULOSE SYRUP 10GM/15ML 30ML UDC PO PRN ×2 (11:45→16:15)
[2023-02-23] MEDS ORDERED: DOCUSATE SODIUM 100 MG CAPSULE PO PRN (11:45)
[2023-02-23] MEDS ORDERED: diphenhydrAMINE 25 MG TABLET PO PRN ×2 (11:45→16:15)
[2023-02-23] MEDS ORDERED: ALPRAZolam 0.25 MG TABLET PO PRN (11:45)
[2023-02-23] MEDS ORDERED: LOPERAMIDE 2 MG CAPSULE PO PRN (11:45)
[2023-02-23] MEDS ORDERED: HYPOCHLOROUS ACID/NaCl WOUND SOLN 250 ML IR SCH (12:15)
[2023-02-23 13:50] VITALS: BP 176/79
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
--- NOTE | 2023-02-23 16:05 | Physical Therapy Daily Note ---
PT Daily Note-Current Subjective Pt presents in W/C with B feet on floor and R foot in cam boot. Pt c/o pain 3/10 in R foot. Pt agreed to tx. Co Tx with OT. Pain Section J - Health Conditions 1. Rarely or not at all 2. Occasionally 3. Frequently 4. Almost constantly 8. Unable to answer Pain Effect on Sleep: 1 Pain Interference with Therapy: 3 Pain Interference w/Day-to-Day: 3 Mental Status Attachments: Merida Catheter Transfers SCALE: Activities may be completed with or without assistive devices. 2-Ksmghjjran-aedonad completes the activity by him/herself with no assistance from a helper. 5-Set-up or Clean-up Assistance-helper sets up or cleans up; patient completes activity. [place] assists only prior to or following the activity. 4-Supervision or Touching Assistance-helper provides verbal cues and/or touching/steadying and/or contact guard assistance as patient completes activity. Assistance may be provided throughout the activity or intermittently. 3-Partial/Moderate Assistance-helper does LESS THAN HALF the effort. [place] lifts, holds or supports trunk or limbs, but provides less than half the effort. 2-Substantial/Maximal Assistance-helper does MORE THAN HALF the effort. [place] lifts or holds trunk or limbs and provides more than half the effort. 3-Tcvuywpos-ogcmms does ALL the effort. Patient does none of the effort to complete the activity. Or, the assistance of 2 or more helpers is required for the patient to complete the activity. If activity was not attempted, code reason: 7-Patient Refused. 9-Not Applicable-not attempted and the patient did not perform the activity before the current illness, exacerbation or injury. 10-Not Attempted due to Environmental Limitations-(lack of equipment, weather restraints, etc.). 88-Not Attempted due to Medical Conditions or Safety Concerns. Sit to Lying (QC): 3 Sit to Stand (QC): 3 Chair/Uan-vx-Estnz Xfer(QC): 3 Weight Bearing Right Lower Extremity: Right Non Weight Bearing Left Lower Extremity: Left Weight Bearing/Tolerated Cam boot on for ambulation and transfers Treatments Pt was educated on w/c use. LINE ORDERING CLINICIAN explained the mechanics of the w/c and positioning. Pt verbalized and demonstrated understanding. Co Tx with OT. Pt was left with ST for eval. Assessment Current Status: Fair Progress Pt was able to verbalize and demonstrate w/c education. Continue with POC per pt tolerance. PT Manager Product Management Goals Manager Product Management Goals PT Manager Product Management Goals Time Frame: Mar 09, 2023 Roll Left & Right (QC): 6 Sit to Lying (QC): 6 Lying-Sitting on Side/Bed(QC): 6 Sit to Stand (QC): 5 Chair/Nfs-rh-Hwhxq Xfer(QC): 5 Toilet Transfer (QC): 5 Car Transfer (QC): 5 Does the Patient Walk: Yes Walk 10 feet (QC): 5 (/c FWW) Walk 50ft with 2 Turns (QC): 5 (/c FWW, NWB) Walk 150 ft (QC): 4 Walking 10ft on Uneven Surface: 5 (/c FWW) 1 Step (curb) (QC): 4 (/c FWW, NWB (B) LE) 4 Steps (QC): 3 (/c 1 railing and (A) of 1 (to simulate home environment), NWB (R) LE) 12 Steps (QC): 3 (/c 1 railing and (A) of 1 (to simulate home environment), NWB (R) LE) Picking up an Object (QC): 5 (set up with partnership manager and FWW) Does the Pt use WC or Scooter?: Yes Wheel 50 feet with 2 turns (QC: 6 Type: Manual Wheel 150 feet: 6 Type: Manual PT Plan Treatment/Plan Treatment Plan: Continue Plan of Care Treatment Plan: Bed Mobility, Education, Functional Activity Marcello, Functional Strength, Group Therapy, Gait, Safety, Therapeutic Exercise, Transfers, Other (W/C mobility) Treatment Duration: Mar 09, 2023 Frequency: At least 5 of 7 days/Wk (IRF) Estimated Hrs Per Day: 1.5 hours per day Patient and/or Family Agrees t: Yes Safety Risks/Education Patient Education: Correct Positioning, W/C Management, Safety Issues Time Time In: 1440 Time Out: 1455 DATE: Feb 23, 2023 Total Billed Treatment Time: 15 Total Billed Treatment 1, W/C (15m) NESTOR RANDALL PTA Feb 23, 2023 16:05
[2023-02-23] MEDS ORDERED: ONDANSETRON INJECTION 4 MG/2 ML (SDV) IVP PRN (16:15)
[2023-02-23] MEDS ORDERED: ANTACID SUSPENSION 30 ML UDC PO PRN (16:15)
[2023-02-23] MEDS ORDERED: MILK OF MAGNESIA 400 MG/5 ML 30 ML UDC PO PRN (16:15)
[2023-02-23] MEDS ORDERED: diphenhydrAMINE INJ 50 MG/ML VIAL IVP PRN (16:15)
[2023-02-23] MEDS ORDERED: ACETAMINOPHEN 325 MG TABLET PO PRN (16:15)
[2023-02-23] MEDS ORDERED: cloNIDine 0.1 MG TABLET PO PRN (16:15)
[2023-02-23] MEDS ORDERED: RT-Ipratropium/Albuterol NEB 3 ML VIAL INH PRN (16:15)
[2023-02-23] MEDS ORDERED: HYDROmorphone INJECTION 2 MG/ML VIAL IV PRN (16:15)
--- NOTE | 2023-02-23 16:22 | Physical Therapy Daily Note ---
PT Daily Note-Current Subjective Pt presents in W/C with L foot on floor and R foot on leg lift. Pt's daughter in room with pt. Pt agrees to tx. Pain Section J - Health Conditions 1. Rarely or not at all 2. Occasionally 3. Frequently 4. Almost constantly 8. Unable to answer Pain Effect on Sleep: 1 Pain Interference with Therapy: 3 Pain Interference w/Day-to-Day: 3 Transfers SCALE: Activities may be completed with or without assistive devices. 0-Icrotvjtlc-numejum completes the activity by him/herself with no assistance from a helper. 5-Set-up or Clean-up Assistance-helper sets up or cleans up; patient completes activity. [place] assists only prior to or following the activity. 4-Supervision or Touching Assistance-helper provides verbal cues and/or touching/steadying and/or contact guard assistance as patient completes activity. Assistance may be provided throughout the activity or intermittently. 3-Partial/Moderate Assistance-helper does LESS THAN HALF the effort. [place] lifts, holds or supports trunk or limbs, but provides less than half the effort. 2-Substantial/Maximal Assistance-helper does MORE THAN HALF the effort. [place] lifts or holds trunk or limbs and provides more than half the effort. 7-Nuiuxbbzt-kvstxg does ALL the effort. Patient does none of the effort to complete the activity. Or, the assistance of 2 or more helpers is required for the patient to complete the activity. If activity was not attempted, code reason: 7-Patient Refused. 9-Not Applicable-not attempted and the patient did not perform the activity before the current illness, exacerbation or injury. 10-Not Attempted due to Environmental Limitations-(lack of equipment, weather restraints, etc.). 88-Not Attempted due to Medical Conditions or Safety Concerns. Sit to Lying (QC): 3 Sit to Stand (QC): 3 Chair/Opw-rl-Rstpp Xfer(QC): 3 Weight Bearing Right Lower Extremity: Right Non Weight Bearing Left Lower Extremity: Left Full Weight Bearing Cam boot on for ambulation and transfers Gait Training Does the Patient Walk?: Yes Wheelchair Training Does the Pt Use a Wheelchair?: Yes Type of Wheelchair: Manual Exercises THER EX: Seated CHARI B LE x 6 sec each: Hip ABD, Hip ADD. Seated CHARI R LE x 6 sec: Hip flex Treatments Pt conducted ther ex in w/c and xfer to bed /c FWW, Lulú for hand placement and safety. Sitting EOB to lying, Lulú for assistance with R LE. Pt was left lying in bed, with daughter in the room, call light in hand, and all needs met. Assessment Current Status: Fair Progress Pt conducted ther ex with no increase in pain. Continue tx per POC as pt tolerates. PT Fdc Goals Fdc Goals PT Fdc Goals Time Frame: Mar 09, 2023 Roll Left & Right (QC): 6 Sit to Lying (QC): 6 Lying-Sitting on Side/Bed(QC): 6 Sit to Stand (QC): 5 Chair/Sta-bp-Erxgf Xfer(QC): 5 Toilet Transfer (QC): 5 Car Transfer (QC): 5 Does the Patient Walk: Yes Walk 10 feet (QC): 5 (/c FWW) Walk 50ft with 2 Turns (QC): 5 (/c FWW, NWB) Walk 150 ft (QC): 4 Walking 10ft on Uneven Surface: 5 (/c FWW) 1 Step (curb) (QC): 4 (/c FWW, NWB (B) LE) 4 Steps (QC): 3 (/c 1 railing and (A) of 1 (to simulate home environment), NWB (R) LE) 12 Steps (QC): 3 (/c 1 railing and (A) of 1 (to simulate home environment), NWB (R) LE) Picking up an Object (QC): 5 (set up with chopper gun operator and FWW) Does the Pt use WC or Scooter?: Yes Wheel 50 feet with 2 turns (QC: 6 Type: Manual Wheel 150 feet: 6 Type: Manual PT Plan Treatment/Plan Treatment Plan: Continue Plan of Care Treatment Plan: Bed Mobility, Education, Functional Activity Marcello, Functional Strength, Group Therapy, Gait, Safety, Therapeutic Exercise, Transfers, Other (W/C mobility) Treatment Duration: Mar 09, 2023 Frequency: At least 5 of 7 days/Wk (IRF) Estimated Hrs Per Day: 1.5 hours per day Patient and/or Family Agrees t: Yes Safety Risks/Education Patient Education: Correct Positioning, Instructions to Caregiver Teaching Recipient: Patient, Family Teaching Methods: Demonstration, Discussion Response to Teaching: Verbalize Understanding, Return Demonstration Time Time In: 1530 Time Out: 1545 DATE: Feb 23, 2023 Total Billed Treatment Time: 15 Total Billed Treatment 1, FA (15m) NESTOR RANDALL FACILITY TECHNICIAN Feb 23, 2023 16:22
[2023-02-23] MEDS ORDERED: FLU HIGH DOSE (65+ YOA) 240 MCG/0.7 ML 2023-24 (FLUZONE) IM ONE (18:30)
[2023-02-23 20:02] VITALS: BP 142/66
[2023-02-23] MEDS: oxyCODONE IMMEDIATE RELEASE 5 MG TABLET PO PRN (20:08)
[2023-02-23] MEDS: inSUlin ASPART 1 UNIT/0.01 ML (PER UNIT) SC SCH (20:08)
[2023-02-23] MEDS: ENOXAPARIN 40 MG/0.4 ML SYRINGE SC SCH (20:09)
[2023-02-23] MEDS: MUPIROCIN 2% OINTMENT 22 GM TUBE TOP SCH (20:09)
[2023-02-23] MEDS: DOCUSATE SODIUM 100 MG CAPSULE PO SCH (20:09)
[2023-02-23] MEDS: SENNOSIDES 8.6 MG TABLET PO SCH (20:09)
[2023-02-23] MEDS ORDERED: ENOXAPARIN 40 MG/0.4 ML SYRINGE SC SCH (21:00)
[2023-02-23] MEDS ORDERED: SENNA W/DOCUSATE TABLET PO SCH (21:00)
[2023-02-23] MEDS ORDERED: DOCUSATE SODIUM 100 MG CAPSULE PO SCH (21:00)
--- NOTE | 2023-02-24 04:53 | PM&R Progress Note ---
Subjective HPI/CC On Admission Date Seen by Provider: Feb 24, 2023 Time Seen by Provider: 12:30 Subjective/Events-last exam 02/24/2023: Doing well Pain controlled BM+ No falls Reviewed meds and labs Review of Systems General: Fatigue, Malaise Musculoskeletal: leg pain Objective Exam Vital Signs Vital Signs Date Time Temp Pulse Resp B/P (MAP) Pulse Ox O2 Delivery O2 Flow Rate FiO2 02/24/23 09:30 Room Air 02/24/23 07:35 36.2 87 20 139/64 (89) 97 Capillary Refill : General Appearance: No Apparent Distress, WD/WN, Chronically ill HEENT: PERRL/EOMI, Normal ENT Inspection, Pharynx Normal Neck: Full Range of Motion, Normal Inspection, Non Tender, Supple, Carotid Bruit Respiratory: Chest Non Tender, Lungs Clear, Normal Breath Sounds, No Accessory Muscle Use, No Respiratory Distress Cardiovascular: Regular Rate, Rhythm, No Edema, No Gallop, No JVD, No Murmur, Normal Peripheral Pulses Gastrointestinal: Normal Bowel Sounds, No Organomegaly, No Pulsatile Mass, Non Tender, Soft Back: Normal Inspection, No CVA Tenderness, No Vertebral Tenderness Extremity: Normal Capillary Refill, Normal Inspection, Normal Range of Motion (Except right ankle), Non Tender, No Calf Tenderness, No Pedal Edema Neurologic/Psychiatric: Alert, Oriented x3, No Motor/Sensory Deficits, Normal Mood/Affect, career development counselor II-XII Norm as Tested, Abnormal Gait, Motor Weakness ( right leg) Skin: Normal Color, Warm/Dry Lymphatic: No Adenopathy Results/Procedures Lab Laboratory Tests 02/24/23 04:45 02/24/23 04:55 Patient resulted labs reviewed. FIM Transfers Therapy Code Descriptions/Definitions Functional [place] Measure: 0=Not Assessed/NA 4=Minimal Assistance 1=Total Assistance 5=Supervision or Setup 2=Maximal Assistance 6=Modified [place] 3=Moderate Assistance 7=Complete IndependenceSCALE: Activities may be completed with or without assistive devices. 1-Obwheodfmf-vcakfjs completes the activity by him/herself with no assistance from a helper. 5-Set-up or Clean-up Assistance-helper sets up or cleans up; patient completes activity. [place] assists only prior to or following the activity. 4-Supervision or Touching Assistance-helper provides verbal cues and/or touching/steadying and/or contact guard assistance as patient completes activity. Assistance may be provided throughout the activity or intermittently. 3-Partial/Moderate Assistance-helper does LESS THAN HALF the effort. [place] lifts, holds or supports trunk or limbs, but provides less than half the effort. 2-Substantial/Maximal Assistance-helper does MORE THAN HALF the effort. [place] lifts or holds trunk or limbs and provides more than half the effort. 5-Oudbtwidl-dgcunt does ALL the effort. Patient does none of the effort to complete the activity. Or, the assistance of 2 or more helpers is required for the patient to complete the activity. If activity was not attempted, code reason: 7-Patient Refused. 9-Not Applicable-not attempted and the patient did not perform the activity before the current illness, exacerbation or injury. 10-Not Attempted due to Environmental Limitations-(lack of equipment, weather restraints, etc.). 88-Not Attempted due to Medical Conditions or Safety Concerns. Roll Left to Right (QC): 6 Sit to Lying (QC): 3 Sit to Stand (QC): 3 Chair/Fxn-pp-Bzunc Xfer(QC): 3 Car Transfer (QC): 3 (/c FWW) Gait Training Does the Patient Walk?: Yes Walk 10 feet (QC): 3 (FWW, NWB (R) LE, cam boot) Walk 50 ft with 2 Turns(QC): 88 (unable to walk 50', endurance deficits, NWB (R)) Walk 150 ft (QC): 88 (unable to walk 50', endurance deficits, NWB (R)) Walking 10ft/uneven surface-QC: 3 (min-mod (A) of 1 /c FWW, NWB (R), cam boot) Gait Assistive Device: FWW Wheelchair Training Does the Pt Use a Wheelchair?: Yes Distance: 50' Wheel 50 ft with 2 turns (QC): 3 (assist to avoid (R) obstacles.) Wheel 150 ft (QC): 88 (unable to cover distance due to fatigue) Type of Wheelchair: Manual Stair Training #of Steps: 1 1 Step (curb) (QC): 1 (mod (A) of 2 (w/c backup) to hop up to 2" curb step with FWW, NWB (R) LE with cam boot) 4 Steps (QC): 88 (not safe) 12 Steps (QC): 88 (not safe) Balance Picking up an Object (QC): 88 (not safe, NWB (R) and need (B) UE support for balance) ADL-Treatment Eating (QC): 6 Oral Hygiene (QC): 5 Upper Body Dressing (QC): 5 Lower Body Dressing (QC): 4 (CGA in stand. Pt able to thread underwear over CAM boot and perform pant hike) On/Off Footwear (QC): 3 (Pt able to doff/don L gripper sock. Assistance required with R CAM boot.) Toileting Hygiene (QC): 4 (CGA in stand) Assessment/Plan Assessment and Plan Assess & Plan/Chief Complaint Assessment: Right bimalleolar ankle fracture, right 3rd metatarsal base fractures, right great toe proximal phalanx fracture, right 5th toe middle phalanx fracture s/p repair HTN DM Plan: Pain control PT OT Monitor BS and BP 02/24/2023: Monitor pain BM regimen (1) Closed bimalleolar fracture of right ankle (2) HTN (hypertension) ALFRED TAFOYA DO Feb 24, 2023 04:53
--- NOTE | 2023-02-24 04:53 | Individualized Plan of Care ---
Individualized Plan of Care Rehab Nursing IPOC Order Admission Date Feb 23, 2023 at 13:25 Current Orders Orders Admission Order(Inpt,Obs,Sdc) (02/23/23 11:37) Vital Signs: Per Unit Policy ( 08,16,00 (02/23/23 11:37) Jerzy Pena ,21 (02/23/23 11:37) Sequential Compression Device [id number] (02/23/23 11:37) Fish Bin Tender-Inpt Rehab Con (02/23/23 11:37) Rehab Nursing Orders-Ipoc (02/23/23 11:37) Physical Therapy Rehab Orders (02/23/23 11:37) Occupational Therapy Rehab Ord (02/23/23 11:37) Speech Therapy Rehab Orders (02/23/23 11:37) Cbc And Automated Diff (02/24/23 06:00) Comprehensive Metabolic Panel (02/24/23 06:00) Precautions (Aru) (02/23/23 11:37) Weekly Weight WEEK (02/23/23 11:37) Rehab-Intensity Of Therapy (02/23/23 11:37) Initiate Admission Nursing Pro .admission (02/23/23 11:37) Alprazolam Tablet (Alprazolam Tablet) (02/23/23 11:45) Calcium Carbonate Chew Tablet (Calcium C (02/23/23 11:45) Diphenhydramine Tablet (Diphenhydramine (02/23/23 11:45) Docusate Sodium Capsule (Docusate Sodium (02/23/23 21:00) Docusate Sodium Capsule (Docusate Sodium (02/23/23 11:45) Bisacodyl Suppository (Bisacodyl Supposi (02/23/23 11:45) Lactulose Oral Solution (Enulose Oral So (02/23/23 11:45) Na Phos/Na Biphos Adult Enema (Na Phos/N (02/23/23 11:45) Guaifenesin/Codeine Syrup (Guaifenesin/C (02/23/23 11:45) Loperamide Capsule (Loperamide Capsule) (02/23/23 11:45) Enoxaparin Injection (Enoxaparin Injecti (02/23/23 21:00) Melatonin Tablet (Melatonin Tablet) (02/23/23 11:45) Polyethylene Glycol Powder (Polyethylen (02/23/23 21:00) Ondansetron Oral Dissolve Tab (Ondanset (02/23/23 11:45) Senna W/Docusate Tablet (Senna W/Docusat (02/23/23 21:00) Acetaminophen Tablet (Acetaminophen Ta (02/23/23 11:45) Initiate Admission Nursing Pro .admission (02/23/23 11:37) Catheter(Urinary) Discontinue (02/23/23 11:41) Hemoglobin A1c (02/23/23 12:06) Dressing Order (Intervention) DAILY PRN (02/23/23 12:06) Physical Therapy Order (02/23/23 12:06) Hypochlorous Acid/Sod Chloride (Hypochlo (02/23/23 12:15) Admission Arrival Bed Request (02/23/23 13:52) Code/Resuscitation (02/23/23 16:03) Accucheck Achs ACHS (02/23/23 16:03) Diet Advance As Tolerated (02/23/23 16:03) Ice: Apply To Affected Area (02/23/23 16:03) Incentive Spirometry (Nursing) Q2H (02/23/23 16:03) Cho 60g/M 1snack (16-2000 [place]) (02/23/23 Dinner) Diphenhydramine Injection (Diphenhydram (02/23/23 16:15) Diphenhydramine Tablet (Diphenhydramine (02/23/23 16:15) Docusate Sodium Capsule (Docusate Sodium (02/23/23 21:00) Bisacodyl Suppository (Bisacodyl Supposi (02/23/23 16:15) Lactulose Oral Solution (Enulose Oral So (02/23/23 16:15) Hydromorphone Injection (Hydromorphone (02/23/23 16:15) Ipratropium/Albuterol Inh Soln (Ipratrop (02/23/23 16:15) Enoxaparin Injection (Enoxaparin Injecti (02/23/23 21:00) Melatonin Tablet (Melatonin Tablet) (02/23/23 16:15) Milk Of Magnesia Oral Susp (Milk Of Magn (02/23/23 16:15) Polyethylene Glycol Powder (Polyethylen (02/23/23 16:15) Mupirocin Ointment (Mupirocin Ointment) (02/23/23 21:00) Antacid Suspension (Antacid Suspension (02/23/23 16:15) Insulin Aspart (Per Unit) (Insulin Aspar (02/23/23 21:00) Sennosides Tablet (Sennosides Tablet) (02/23/23 21:00) Calcium Carbonate Chew Tablet (Calcium C (02/23/23 16:15) Acetaminophen Tablet (Acetaminophen Ta (02/23/23 16:15) Ondansetron Oral Dissolve Tab (Ondanset (02/23/23 16:15) Ondansetron Injection (Ondansetron Inj (02/23/23 16:15) Clonidine Tablet (Clonidine Tablet) (02/23/23 16:15) Oxycodone Immediate Rel Tablet (Oxycodon (02/23/23 16:15) Consult Orthopedic Surgery (02/23/23 16:03) Consult Wound Care Physician (02/23/23 16:03) Mat Initiate Protocol (02/23/23 16:03) Svn Small Volume Nebulizer (02/23/23 16:03) Weight Bearing Restrictions (02/23/23 16:03) Svn Small Volume Nebulizer (02/23/23 16:03) Flu High Dose Quad 1859-6149 (Flu High D (02/23/23 18:30) Patient Visit (02/23/23 ) Pt Eval Moderate Complexity (02/23/23 ) Gait Training, Ea 15 Min (02/23/23 ) Functional Activities, Ea 15 (02/23/23 ) Patient Visit (02/23/23 ) Wheelchair Mgmt/Propulsn 15min (02/23/23 ) Patient Visit (02/23/23 ) Functional Activities, Ea 15 (02/23/23 ) Patient Visit (02/24/23 ) Functional Activities, Ea 15 (02/24/23 ) Exercise Therap, Ea 15 Min (02/24/23 ) Gait Training, Ea 15 Min (02/24/23 ) Ex Neuromuscular, Ea 15 Min (02/24/23 ) Rehab Nursing Orders: Ongoing Assess. of Cognitive Status, Ongoing Assess. of Function Status, Bladder Management, Bladder Scan, Bladder Training, Bowel Management, Bowel Training, Disease Management & Educaiton, DVT Prophylaxis, Fall Prevention, Fluid/Electrolyte/Nutrition Mgmt, Infection Prevention, Medication Management & Education, Management of Risks & Complications, Management of Skin Intergrity, Nutrition Management, Pain Management, Patient/Family Support, Safety Management, Swallow Precautions Intensity of Therapy to be met Patient to be seen: Min.3h per day/5 of 7d PT IPOC Problem List: Activity Tolerance, Functional Strength, Safety, Balance, Gait, Transfer, Bed Mobility, ROM, Other (w/c propulsion) Treatment Plan: Continue Plan of Care Bed Mobility, Education, Functional Activity Marcello, Functional Strength, Group Therapy, Gait, Safety, Therapeutic Exercise, Transfers, Other (W/C mobility) Treatment Duration: Mar 09, 2023 Frequency: At least 5 of 7 days/Wk (IRF) Estimated Hrs Per Day: 1.5 hours per day OT IPOC Problems: Decreased Activ Tolerance, Decreased UE Strength, Impaired Funct Balance, Impaired I ADL's, Impaired Self-Care Skills OT Treatment, Training and Edu: Yes Plan of Care: ADL Retraining, Functional Mobility, Group Exercise/Act as Ind, UE Funct Exercise/Act Treatment Duration: Mar 17, 2023 Frequency: At least 5 of 7 days/Wk (IRF) Estimated Hrs Per Day: 1.[address] IPOC Speech Therapy Treatment Plan: Discontinue ST Treatment Duration: Feb 23, 2023 Frequency: Modified Program (IRF) (no treatment recommended) Estimated Hrs Per Day: Other (no treatment) Fish Bin Tender/Case Mgmt Fish Bin Tender/Case Managemen: Discharge Planning Dietitian/Environmental Studies Professor Dietitian/Environmental Studies Professor to monitor nutritional status and make changes and/or recommendations as needed and work with speech pathology on dietary upgrades as the occur. Physician IPOC Medical Issues being managed closely and that require the 24 hour availability of a physician: Recent ankle fracture with elevated BP and BS will be monitored closely due to increased risk for decompensation and DVT and resp depression from narcotic pain management Medical Issues: Bowel/Bladder Function, DVT Prophylaxis, Falls Precautions, Fluid/Electrolyte/Nutrition Balance, Infection Protection, Pain Management, Weight Bearing Precautions, Wound Care Brief Synthesis of Preadmission Screen, Post-Admission Evaluation, and Therapy Evaluations: PT OT will focus on regaining function with the use of AD in order to regain independence and ultimately return to home while maintaining non-weight bearing status Medical Prognosis: Good Anticipated Length of Stay: 7 days ALFRED TAFOYA DO Feb 24, 2023 04:53
[2023-02-24 05:05] LABS: BASOPHILS # (AUTO) 0.1 10^3/uL (0.0-0.1); BASOPHILS % (AUTO) 1 % (0-10); EOSINOPHILS # (AUTO) 0.3 10^3/uL (0.0-0.3); EOSINOPHILS % (AUTO) 3 % (0-10); HEMATOCRIT 29 % (35-52); HEMOGLOBIN 9.5 g/dL (11.5-16.0); LYMPHOCYTES # (AUTO) 1.7 10^3/uL (1.0-4.0); LYMPHOCYTES % (AUTO) 18 % (12-44); MEAN CORPUSCULAR HEMOGLOBIN 29 pg (25-34); MEAN CORPUSCULAR HGB CONC 33 g/dL (32-36); MEAN CORPUSCULAR VOLUME 89 fL (80-99); MEAN PLATELET VOLUME 9.5 fL (9.0-12.2); MONOCYTES # (AUTO) 0.7 10^3/uL (0.0-1.0); MONOCYTES % (AUTO) 8 % (0-12); NEUTROPHILS # (AUTO) 6.4 10^3/uL (1.8-7.8); NEUTROPHILS % (AUTO) 70 % (42-75); PLATELET COUNT 267 10^3/uL (130-400); WHITE BLOOD COUNT 9.1 10^3/uL (4.3-11.0)
[2023-02-24 05:17] LABS: ALBUMIN 3.1 GM/DL (3.2-4.5); POTASSIUM 4.2 MMOL/L (3.6-5.0)
[2023-02-24 05:18] LABS: CALCIUM 8.7 MG/DL (8.5-10.1)
[2023-02-24 05:19] LABS: TOTAL PROTEIN 6.3 GM/DL (6.4-8.2)
[2023-02-24 05:21] LABS: BILIRUBIN,TOTAL 0.5 MG/DL (0.1-1.0)
[2023-02-24] MEDS: inSUlin ASPART 1 UNIT/0.01 ML (PER UNIT) SC SCH ×4 (05:21→19:33)
[2023-02-24 05:23] LABS: CREATININE SERUM 1.33 MG/DL (0.60-1.30)
[2023-02-24 07:35] VITALS: BP 139/64
[2023-02-24] MEDS: MUPIROCIN 2% OINTMENT 22 GM TUBE TOP SCH ×2 (08:45→19:46)
[2023-02-24] MEDS: DOCUSATE SODIUM 100 MG CAPSULE PO SCH ×2 (08:57→19:33)
[2023-02-24] MEDS: SENNOSIDES 8.6 MG TABLET PO SCH ×2 (08:57→19:34)
--- NOTE | 2023-02-24 10:04 | Progress Note ---
LOREN TINSLEY 02/24/23 1004: Progress Note 67 year old female with a history of diabetes mellitus and hypertension who is recovering from multiple fractures. Patient has a right bimalleolar ankle fracture, right 3rd metatarsal base fractures, right great toe proximal phalanx fracture, right 5th toe middle phalanx fracture, repaired by Dr. Sweet. On a dmission, she is able to complete most ADLs and transfers with minimal assistance, with the goal of being completely independent by discharge. She is limited by her right foot, but is enthusiastic in doing exercises. Her pain is well controlled with oxycodone. MABEL TAFOYA DO 02/24/23 1811: Supervisory-Addendum Brief Verification & Attestation Participated in pt care: history, MDM, physical Personally performed: exam, history, MDM, supervision of care Care discussed with: Medical Student Procedures: n/a Results interpretation: Verified all documentation Verification and Attestation of Medical Student E/M Service A medical student performed and documented this service in my presence. I reviewed and verified all information documented by the medical student and made modifications to such information, when appropriate. I personally performed the physical exam and medical decision making. Mabel Tafoya Feb 24, 2023,18:11 LOREN TINSLEY Feb 24, 2023 10:04 MABEL TAFOYA DO Feb 24, 2023 18:11
--- NOTE | 2023-02-24 11:01 | Occupational Ther Daily Note ---
OT Current Status-Daily Note Subjective Pt. alert, Pt. in recliner, No c/o pain, Pt. agreed to therapy Mental Status/Objective Patient Orientation: Person, Place, Time, Situation ADL-Treatment Pt. agreed to shower. Set up for UBD. Pt required mod A for LBD. Pt able to thread underwear over CAM boot by self, assist needed to thread pants over CAM boot the pt able to hike pants/underwear over hips with min A for standing balance. CGA sit to stands, using FWW for SPT from recliner to w/c, adhered to NWB R LE . Pt. able to SPT into shower with the use of grabbars. Toilet transfers w/c<-->toilet with CGA using of grabbars. Toileting hygiene by self sitting on toilet, CGA to manipulate clothing in standing. Pt. sat on BSC 100% of the time, SBA for safety while pt completed shower. Pt required assist to adjust water temp and to cover R LE CAM boot. Pt. able to complete grooming hygiene sitting at sink independently. Pt able to don/doff L sock by self after set up, requires assist to don/doff R CAM boot. Therapy Code Descriptions/Definitions Functional [place] Measure: 0=Not Assessed/NA 4=Minimal Assistance 1=Total Assistance 5=Supervision or Setup 2=Maximal Assistance 6=Modified [place] 3=Moderate Assistance 7=Complete IndependenceSCALE: Activities may be completed with or without assistive devices. 5-Tuqqnxttsq-hmalpjc completes the activity by him/herself with no assistance from a helper. 5-Set-up or Clean-up Assistance-helper sets up or cleans up; patient completes activity. [place] assists only prior to or following the activity. 4-Supervision or Touching Assistance-helper provides verbal cues and/or touching/steadying and/or contact guard assistance as patient completes activity. Assistance may be provided throughout the activity or intermittently. 3-Partial/Moderate Assistance-helper does LESS THAN HALF the effort. [place] lifts, holds or supports trunk or limbs, but provides less than half the effort. 2-Substantial/Maximal Assistance-helper does MORE THAN HALF the effort. [place] lifts or holds trunk or limbs and provides more than half the effort. 8-Ybhgfwtee-aihewd does ALL the effort. Patient does none of the effort to complete the activity. Or, the assistance of 2 or more helpers is required for the patient to complete the activity. If activity was not attempted, code reason: 7-Patient Refused. 9-Not Applicable-not attempted and the patient did not perform the activity before the current illness, exacerbation or injury. 10-Not Attempted due to Environmental Limitations-(lack of equipment, weather restraints, etc.). 88-Not Attempted due to Medical Conditions or Safety Concerns. Oral Hygiene (QC): 6 (Pt sitting at sink, completed independently.) Shower/Bathe Self (QC): 4 Upper Body Dressing (QC): 5 Lower Body Dressing (QC): 3 On/Off Footwear: 3 (Mod A) Toileting Hygiene (QC): 4 Toilet Transfer (QC): 4 Other Treatment Pt. educated and practiced w/c mobility from room to therapy gym. Pt. completed BUE exercises using theraflex and light resistance theraband to increase strength for daily functional tasks. Pt given HEP for use in room and home. Skilled instruction for correct technique and modifications when needed. Pt required vc/pc/gc to complete exercises correctly, will need continued skilled instruction. After session, Pt. in recliner, call light/phone in reach and all needs were met. Education OT Patient Education: Exercise program Teaching Recipient: Patient Teaching Methods: Demonstration, Handout, Discussion Response to Teaching: Verbalize Understanding, Return Demonstration, Reinforcement Needed OT Senior Living Goals Science Faculty Member Goals Time Frame: Mar 17, 2023 Acute change in mental status: 0 Inattention: 0 Disorganized thinkin Altered level of consciousness: 0 Eating (QC): 6 Oral Hygiene (QC): 6 Toileting Hygiene (QC): 6 Shower/Bathe Self (QC): 5 Upper Body Dressing (QC): 6 Lower Body Dressing (QC): 6 On/Off Footwear (QC): 5 Additional Goals: 1-Demonstrate ADL Tasks, 2-Verbalize Understanding, 3- ImproveStrength/[place] 1=Demonstrate adherence to instructed precautions during ADL tasks. 2=Patient will verbalize/demonstrate understanding of assistive devices/modifications for ADL. 3=Patient will improve strength/tolerance for activity to enable patient to perform ADL's. OT Education/Plan Problem List/Assessment Assessment: Decreased Safety Aware, Decreased UE Strength, Impaired Funct Balance, Impaired Self-Care Skills Discharge Recommendations Plan/Recommendations: Continue POC Treatment Plan/Plan of Care Patient would benefit from OT for education, treatment and training to promote independence in ADL's, mobility, safety and/or upper extremity function for ADL's. Plan of Care: ADL Retraining, Functional Mobility, Group Exercise/Act as Ind, UE Funct Exercise/Act Treatment Duration: Mar 17, 2023 Frequency: At least 5 of 7 days/Wk (IRF) Estimated Hrs Per Day: 1.5 hours per day Rehab Potential: Good Time Start Time: 07:30 Stop Time: 09:00 DATE: Feb 24, 2023 Total Time Billed (hr/min): 90 Billed Treatment Time 1 visit-ADL 4 (60 min) EX 2 (30 min) ABHIJIT BAUGH Feb 24, 2023 11:01
[2023-02-24] MEDS: oxyCODONE IMMEDIATE RELEASE 5 MG TABLET PO PRN ×2 (12:07→19:23)
--- NOTE | 2023-02-24 12:25 | Physical Therapy Daily Note ---
PT Daily Note-Current Subjective Patient seated in recliner with BLE elevated when PT enters room. Patient agreeable to participate in PT session, reporting morning pain at 8/10, but then states pain is more 4/10 at initiation of session. During session functional activity patient reports pain exacerbation up to 6/10, returning to 4/10 with monitored rest breaks. Patient reports pain 4/10 at end of session, continuously referring to RLE. Pain Section J - Health Conditions 1. Rarely or not at all 2. Occasionally 3. Frequently 4. Almost constantly 8. Unable to answer Pain Effect on Sleep: 1 Pain Interference with Therapy: 3 Pain Interference w/Day-to-Day: 3 Mental Status Patient Orientation: Person, Place, Time, Situation Transfers SCALE: Activities may be completed with or without assistive devices. 6-Wenwzpzjgf-nyctjbd completes the activity by him/herself with no assistance from a helper. 5-Set-up or Clean-up Assistance-helper sets up or cleans up; patient completes activity. [place] assists only prior to or following the activity. 4-Supervision or Touching Assistance-helper provides verbal cues and/or touching/steadying and/or contact guard assistance as patient completes activity. Assistance may be provided throughout the activity or intermittently. 3-Partial/Moderate Assistance-helper does LESS THAN HALF the effort. [place] lifts, holds or supports trunk or limbs, but provides less than half the effort. 2-Substantial/Maximal Assistance-helper does MORE THAN HALF the effort. [place] lifts or holds trunk or limbs and provides more than half the effort. 1-Gfvnpykxj-oukvtx does ALL the effort. Patient does none of the effort to complete the activity. Or, the assistance of 2 or more helpers is required for the patient to complete the activity. If activity was not attempted, code reason: 7-Patient Refused. 9-Not Applicable-not attempted and the patient did not perform the activity before the current illness, exacerbation or injury. 10-Not Attempted due to Environmental Limitations-(lack of equipment, weather restraints, etc.). 88-Not Attempted due to Medical Conditions or Safety Concerns. Roll Left & Right (QC): 4 Sit to Lying (QC): 4 Lying to Sitting/Side of Bed(Q: 4 Sit to Stand (QC): 3 Chair/Mjt-cy-Hgaxw Xfer(QC): 3 Toilet Transfer (QC): 3 Patient participated in functional bed mobility and repositioning practice emphasizing improving efficiency and quality of functional task while adhering to WB restrictions RLE. Patient cued for improved positioning, weight distribution and utilization of LLE and BUE. Patient perform rolling right <> left, supine <> sit, and scooting laterally and vertically with SPV-CGA. Patient participated in functional transfer practice with use of FWW emphasizing improving performance, sequence, safety and AD management while adhering to WB restrictions RLE. Patient perform transfers between surfaces of variable heights and compliance at variable distances and angles for improved future functional independence. Weight Bearing Right Lower Extremity: Right Non Weight Bearing Left Lower Extremity: Left Full Weight Bearing Cam boot on for ambulation and transfers Gait Training Does the Patient Walk?: Yes Walk 10 feet (QC): 3 Walk 50 ft with 2 Turns(QC): 88 Walk 150 ft (QC): 88 Walking 10ft/uneven surface-QC: 88 Gait Assistive Device: FWW Patient participated in functional gait training with use of FWW while adhering to NWB RLE restriction, achieving maximum distance of 25ft and [place] focusing on maintaining COG/LI, AD management and amb posture for improved efficiency and quality of functional gait and progress toward improved future amb independence. Exercises Patient perform seated AROM-AAROM of RLE with cam boot performing LAQ, hip marching x3 sets of 15. Patient perform seated AROM LLE performing LAQ, hip marching, and ankle df/pf x3 sets of 15. Patient perform seated hip ADD/ABD isometrics x2 sets of 10 :05 hold Patient perform supine AROM RLE SL INV/EV x2 sets of 15 Patient perform supine AAROM SLR x2 sets of 10 Performed for improved functional strength, endurance and mobility. Neuromuscular Patient participated in static and dynamic, seated and standing progressive functional balance challenges for improved functional balance, stability and reactive control for reduced fall risk with daily functional activities. Activities and challenges performed with full adherence to NWB RLE restriction Assessment Current Status: Good Progress Patient tolerated session well without adverse rxn. Patient continued to be cued and educated on NWB RLE restriction throughout session, though demonstrates good awareness and adherence. At end of session, patient assisted to supine position in bed with HOB elevated and all needs met or within reach. PT [facility] Goals Bluing Oven Tender Goals PT Bluing Oven Tender Goals Time Frame: Mar 09, 2023 Roll Left & Right (QC): 6 Sit to Lying (QC): 6 Lying-Sitting on Side/Bed(QC): 6 Sit to Stand (QC): 5 Chair/Nmk-we-Pxcxd Xfer(QC): 5 Toilet Transfer (QC): 5 Car Transfer (QC): 5 Does the Patient Walk: Yes Walk 10 feet (QC): 5 (/c FWW) Walk 50ft with 2 Turns (QC): 5 (/c FWW, NWB) Walk 150 ft (QC): 4 Walking 10ft on Uneven Surface: 5 (/c FWW) 1 Step (curb) (QC): 4 (/c FWW, NWB (B) LE) 4 Steps (QC): 3 (/c 1 railing and (A) of 1 (to simulate home environment), NWB (R) LE) 12 Steps (QC): 3 (/c 1 railing and (A) of 1 (to simulate home environment), NWB (R) LE) Picking up an Object (QC): 5 (set up with career technical supervisor and FWW) Does the Pt use WC or Scooter?: Yes Wheel 50 feet with 2 turns (QC: 6 Type: Manual Wheel 150 feet: 6 Type: Manual PT Plan Treatment/Plan Treatment Plan: Continue Plan of Care Treatment Plan: Bed Mobility, Education, Functional Activity Marcello, Functional Strength, Group Therapy, Gait, Safety, Therapeutic Exercise, Transfers, Other (W/C mobility) Treatment Duration: Mar 09, 2023 Frequency: At least 5 of 7 days/Wk (IRF) Estimated Hrs Per Day: 1.5 hours per day Patient and/or Family Agrees t: Yes Time Time In: 1030 Time Out: 1200 DATE: Feb 24, 2023 Total Billed Treatment Time: 90 Total Billed Treatment 1 session [id number] (90 minutes) FAx2 Exx2 GTx1 NMx1 VONDA RIVAS PT Feb 24, 2023 12:25
[2023-02-24] MEDS: ENOXAPARIN 40 MG/0.4 ML SYRINGE SC SCH (19:46)
[2023-02-24 19:52] VITALS: BP 122/68
[2023-02-25] MEDS: inSUlin ASPART 1 UNIT/0.01 ML (PER UNIT) SC SCH ×4 (05:32→21:48)
[2023-02-25 08:08] VITALS: BP 135/63
[2023-02-25] MEDS: oxyCODONE IMMEDIATE RELEASE 5 MG TABLET PO PRN ×3 (09:58→21:49)
[2023-02-25] MEDS: ACETAMINOPHEN 325 MG TABLET PO PRN (09:59)
[2023-02-25] MEDS: MUPIROCIN 2% OINTMENT 22 GM TUBE TOP SCH ×2 (10:00→21:50)
[2023-02-25] MEDS: DOCUSATE SODIUM 100 MG CAPSULE PO SCH ×2 (10:17→21:45)
[2023-02-25] MEDS: SENNOSIDES 8.6 MG TABLET PO SCH ×2 (10:18→21:45)
--- NOTE | 2023-02-25 10:21 | PM&R Progress Note ---
Subjective HPI/CC On Admission Date Seen by Provider: Feb 25, 2023 Time Seen by Provider: 12:00 Subjective/Events-last exam 02/25/2023: Patient doing pretty well Bowels have not moved for 2 days Pain is controlled 02/24/2023: Doing well Pain controlled BM+ No falls Reviewed meds and labs Review of Systems Musculoskeletal: leg pain Objective Exam Vital Signs Vital Signs Date Time Temp Pulse Resp B/P (MAP) Pulse Ox O2 Delivery O2 Flow Rate FiO2 02/25/23 19:38 36.5 74 20 134/68 (90) 96 Room Air 02/25/23 07:36 0.00 Capillary Refill : General Appearance: No Apparent Distress, WD/WN, Chronically ill HEENT: PERRL/EOMI, Normal ENT Inspection, Pharynx Normal Neck: Full Range of Motion, Normal Inspection, Non Tender, Supple, Carotid Bruit Respiratory: Chest Non Tender, Lungs Clear, Normal Breath Sounds, No Accessory Muscle Use, No Respiratory Distress Cardiovascular: Regular Rate, Rhythm, No Edema, No Gallop, No JVD, No Murmur, Normal Peripheral Pulses Gastrointestinal: Normal Bowel Sounds, No Organomegaly, No Pulsatile Mass, Non Tender, Soft Back: Normal Inspection, No CVA Tenderness, No Vertebral Tenderness Extremity: Normal Capillary Refill, Normal Inspection, Normal Range of Motion (Except right ankle), Non Tender, No Calf Tenderness, No Pedal Edema Neurologic/Psychiatric: Alert, Oriented x3, No Motor/Sensory Deficits, Normal Mood/Affect, 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 FIM Transfers Therapy Code Descriptions/Definitions Functional [place] Measure: 0=Not Assessed/NA 4=Minimal Assistance 1=Total Assistance 5=Supervision or Setup 2=Maximal Assistance 6=Modified [place] 3=Moderate Assistance 7=Complete IndependenceSCALE: Activities may be completed with or without assistive devices. 6-Ktmkwkyeoy-qcnvmtp completes the activity by him/herself with no assistance from a helper. 5-Set-up or Clean-up Assistance-helper sets up or cleans up; patient completes activity. [place] assists only prior to or following the activity. 4-Supervision or Touching Assistance-helper provides verbal cues and/or touching/steadying and/or contact guard assistance as patient completes activity. Assistance may be provided throughout the activity or intermittently. 3-Partial/Moderate Assistance-helper does LESS THAN HALF the effort. [place] lifts, holds or supports trunk or limbs, but provides less than half the effort. 2-Substantial/Maximal Assistance-helper does MORE THAN HALF the effort. [place] lifts or holds trunk or limbs and provides more than half the effort. 9-Fcejjhowt-jkasty does ALL the effort. Patient does none of the effort to complete the activity. Or, the assistance of 2 or more helpers is required for the patient to complete the activity. If activity was not attempted, code reason: 7-Patient Refused. 9-Not Applicable-not attempted and the patient did not perform the activity befo re the current illness, exacerbation or injury. 10-Not Attempted due to Environmental Limitations-(lack of equipment, weather re straints, etc.). 88-Not Attempted due to Medical Conditions or Safety Concerns. Roll Left to Right (QC): 4 Sit to Lying (QC): 4 Sit to Stand (QC): 3 Chair/Pqd-mr-Feasn Xfer(QC): 3 Car Transfer (QC): 3 (/c FWW) Gait Training Does the Patient Walk?: Yes Walk 10 feet (QC): 3 Walk 50 ft with 2 Turns(QC): 88 Walk 150 ft (QC): 88 Walking 10ft/uneven surface-QC: 88 Gait Assistive Device: FWW Wheelchair Training Does the Pt Use a Wheelchair?: Yes Distance: 50' Wheel 50 ft with 2 turns (QC): 3 (assist to avoid (R) obstacles.) Wheel 150 ft (QC): 88 (unable to cover distance due to fatigue) Type of Wheelchair: Manual Stair Training #of Steps: 1 1 Step (curb) (QC): 1 (mod (A) of 2 (w/c backup) to hop up to 2" curb step with FWW, NWB (R) LE with cam boot) 4 Steps (QC): 88 (not safe) 12 Steps (QC): 88 (not safe) Balance Picking up an Object (QC): 88 (not safe, NWB (R) and need (B) UE support for balance) ADL-Treatment Eating (QC): 6 Oral Hygiene (QC): 6 (Pt sitting at sink, completed independently.) Shower/Bathe Self (QC): 4 Upper Body Dressing (QC): 5 Lower Body Dressing (QC): 3 On/Off Footwear (QC): 3 (Mod A) Toileting Hygiene (QC): 4 Toilet Transfer (QC): 4 Assessment/Plan Assessment and Plan Assess & Plan/Chief Complaint Assessment: Right bimalleolar ankle fracture, right 3rd metatarsal base fractures, right great toe proximal phalanx fracture, right 5th toe middle phalanx fracture s/p repair HTN DM Plan: Pain control PT OT Monitor BS and BP 02/24/2023: Monitor pain BM regimen 02/25/2023: Supportive care Pain control Bowel regimen (1) Closed bimalleolar fracture of right ankle (2) HTN (hypertension) ALFRED TAFOYA DO Feb 25, 2023 10:21
[2023-02-25 19:38] VITALS: BP 134/68
[2023-02-25] MEDS: MELATONIN 3 MG TABLET PO PRN (21:48)
[2023-02-25] MEDS: ENOXAPARIN 40 MG/0.4 ML SYRINGE SC SCH (21:48)
[2023-02-26] MEDS: ACETAMINOPHEN 325 MG TABLET PO PRN ×4 (01:32→22:18)
--- NOTE | 2023-02-26 06:24 | PM&R Progress Note ---
Subjective HPI/CC On Admission Date Seen by Provider: Feb 26, 2023 Time Seen by Provider: 09:00 Subjective/Events-last exam 02/26/2023: Patient doing a lot better I did evaluate the wound and it looks really good No drainage No redness Swelling and bruising much improved Asked me who I was and I have been taking care of her since she was on fourth floor after she was admitted through the ER so unsure of her recall ability 02/25/2023: Patient doing pretty well Bowels have not moved for 2 days Pain is controlled 02/24/2023: Doing well Pain controlled BM+ No falls Reviewed meds and labs Review of Systems General: Fatigue, Malaise Objective Exam Vital Signs Vital Signs Date Time Temp Pulse Resp B/P (MAP) Pulse Ox O2 Delivery O2 Flow Rate FiO2 02/26/23 08:05 Room Air 02/26/23 08:04 95 02/26/23 07:46 36.3 70 18 132/61 (84) 02/25/23 07:36 0.00 Capillary Refill : General Appearance: No Apparent Distress, WD/WN, Chronically ill HEENT: PERRL/EOMI, Normal ENT Inspection, Pharynx Normal Neck: Full Range of Motion, Normal Inspection, Non Tender, Supple, Carotid Bruit Respiratory: Chest Non Tender, Lungs Clear, Normal Breath Sounds, No Accessory Muscle Use, No Respiratory Distress Cardiovascular: Regular Rate, Rhythm, No Edema, No Gallop, No JVD, No Murmur, Normal Peripheral Pulses Gastrointestinal: Normal Bowel Sounds, No Organomegaly, No Pulsatile Mass, Non Tender, Soft Back: Normal Inspection, No CVA Tenderness, No Vertebral Tenderness Extremity: Normal Capillary Refill, Normal Inspection, Normal Range of Motion (Except right ankle), Non Tender, No Calf Tenderness, No Pedal Edema Neurologic/Psychiatric: Alert, Oriented x3, No Motor/Sensory Deficits, Normal Mood/Affect, director hr 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 FIM Transfers Therapy Code Descriptions/Definitions Functional [place] Measure: 0=Not Assessed/NA 4=Minimal Assistance 1=Total Assistance 5=Supervision or Setup 2=Maximal Assistance 6=Modified [place] 3=Moderate Assistance 7=Complete IndependenceSCALE: Activities may be completed with or without assistive devices. 7-Rajbntznsj-nvqpepk completes the activity by him/herself with no assistance from a helper. 5-Set-up or Clean-up Assistance-helper sets up or cleans up; patient completes activity. [place] assists only prior to or following the activity. 4-Supervision or Touching Assistance-helper provides verbal cues and/or touching/steadying and/or contact guard assistance as patient completes activity. Assistance may be provided throughout the activity or intermittently. 3-Partial/Moderate Assistance-helper does LESS THAN HALF the effort. [place] lifts, holds or supports trunk or limbs, but provides less than half the effort. 2-Substantial/Maximal Assistance-helper does MORE THAN HALF the effort. [place] lifts or holds trunk or limbs and provides more than half the effort. 7-Jlmrqlozz-rofbto does ALL the effort. Patient does none of the effort to complete the activity. Or, the assistance of 2 or more helpers is required for the patient to complete the activity. If activity was not attempted, code reason: 7-Patient Refused. 9-Not Applicable-not attempted and the patient did not perform the activity before the current illness, exacerbation or injury. 10-Not Attempted due to Environmental Limitations-(lack of equipment, weather restraints, etc.). 88-Not Attempted due to Medical Conditions or Safety Concerns. Roll Left to Right (QC): 4 Sit to Lying (QC): 4 Sit to Stand (QC): 3 Chair/Uov-ix-Mzdtq Xfer(QC): 3 Car Transfer (QC): 3 (/c FWW) Gait Training Does the Patient Walk?: Yes Walk 10 feet (QC): 3 Walk 50 ft with 2 Turns(QC): 88 Walk 150 ft (QC): 88 Walking 10ft/uneven surface-QC: 88 Gait Assistive Device: FWW Wheelchair Training Does the Pt Use a Wheelchair?: Yes Distance: 50' Wheel 50 ft with 2 turns (QC): 3 (assist to avoid (R) obstacles.) Wheel 150 ft (QC): 88 (unable to cover distance due to fatigue) Type of Wheelchair: Manual Stair Training #of Steps: 1 1 Step (curb) (QC): 1 (mod (A) of 2 (w/c backup) to hop up to 2" curb step with FWW, NWB (R) LE with cam boot) 4 Steps (QC): 88 (not safe) 12 Steps (QC): 88 (not safe) Balance Picking up an Object (QC): 88 (not safe, NWB (R) and need (B) UE support for balance) ADL-Treatment Eating (QC): 6 Oral Hygiene (QC): 6 (Pt sitting at sink, completed independently.) Shower/Bathe Self (QC): 4 Upper Body Dressing (QC): 5 Lower Body Dressing (QC): 3 On/Off Footwear (QC): 3 (Mod A) Toileting Hygiene (QC): 4 Toilet Transfer (QC): 4 Assessment/Plan Assessment and Plan Assess & Plan/Chief Complaint Assessment: Right bimalleolar ankle fracture, right 3rd metatarsal base fractures, right great toe proximal phalanx fracture, right 5th toe middle phalanx fracture s/p repair HTN DM Plan: Pain control PT OT Monitor BS and BP 02/24/2023: Monitor pain BM regimen 02/25/2023: Supportive care Pain control Bowel regimen 02/26/2023: Supportive care Pain control (1) Closed bimalleolar fracture of right ankle (2) HTN (hypertension) ALFRED TAFOYA DO Feb 26, 2023 06:24
[2023-02-26] MEDS: inSUlin ASPART 1 UNIT/0.01 ML (PER UNIT) SC SCH ×4 (06:33→20:59)
[2023-02-26 07:46] VITALS: BP 132/61
[2023-02-26] MEDS: DOCUSATE SODIUM 100 MG CAPSULE PO SCH ×3 (07:56→22:19)
[2023-02-26] MEDS: SENNOSIDES 8.6 MG TABLET PO SCH ×3 (07:56→22:14)
[2023-02-26] MEDS: MUPIROCIN 2% OINTMENT 22 GM TUBE TOP SCH ×2 (09:58→22:19)
[2023-02-26 20:10] VITALS: BP 143/65
[2023-02-26] MEDS: oxyCODONE IMMEDIATE RELEASE 5 MG TABLET PO PRN (22:15)
[2023-02-26] MEDS: MELATONIN 3 MG TABLET PO PRN (22:17)
[2023-02-26] MEDS: ENOXAPARIN 40 MG/0.4 ML SYRINGE SC SCH (22:18)
--- NOTE | 2023-02-27 04:53 | PM&R Progress Note ---
Subjective HPI/CC On Admission Date Seen by Provider: Feb 27, 2023 Time Seen by Provider: 09:00 Subjective/Events-last exam 02/27/2023: No major issues Pain controlled Sister is at bedside No falls Reviewed meds and labs 02/26/2023: Patient doing a lot better I did evaluate the wound and it looks really good No drainage No redness Swelling and bruising much improved Asked me who I was and I have been taking care of her since she was on fourth floor after she was admitted through the ER so unsure of her recall ability 02/25/2023: Patient doing pretty well Bowels have not moved for 2 days Pain is controlled 02/24/2023: Doing well Pain controlled BM+ No falls Reviewed meds and labs Review of Systems General: Fatigue, Malaise Objective Exam Vital Signs Vital Signs Date Time Temp Pulse Resp B/P (MAP) Pulse Ox O2 Delivery O2 Flow Rate FiO2 02/27/23 09:00 100 Room Air 02/27/23 08:00 36.4 70 16 128/75 (92) 02/25/23 07:36 0.00 Capillary Refill : General Appearance: No Apparent Distress, WD/WN, Chronically ill HEENT: PERRL/EOMI, Normal ENT Inspection, Pharynx Normal Neck: Full Range of Motion, Normal Inspection, Non Tender, Supple, Carotid Bruit Respiratory: Chest Non Tender, Lungs Clear, Normal Breath Sounds, No Accessory Muscle Use, No Respiratory Distress Cardiovascular: Regular Rate, Rhythm, No Edema, No Gallop, No JVD, No Murmur, Normal Peripheral Pulses Gastrointestinal: Normal Bowel Sounds, No Organomegaly, No Pulsatile Mass, Non Tender, Soft Back: Normal Inspection, No CVA Tenderness, No Vertebral Tenderness Extremity: Normal Capillary Refill, Normal Inspection, Normal Range of Motion (Except right ankle), Non Tender, No Calf Tenderness, No Pedal Edema Neurologic/Psychiatric: Alert, Oriented x3, No Motor/Sensory Deficits, Normal Mood/Affect, 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 FIM Transfers Therapy Code Descriptions/Definitions Functional [place] Measure: 0=Not Assessed/NA 4=Minimal Assistance 1=Total Assistance 5=Supervision or Setup 2=Maximal Assistance 6=Modified [place] 3=Moderate Assistance 7=Complete IndependenceSCALE: Activities may be completed with or without assistive devices. 1-Ojqjbytdnh-ryafwng completes the activity by him/herself with no assistance from a helper. 5-Set-up or Clean-up Assistance-helper sets up or cleans up; patient completes activity. [place] assists only prior to or following the activity. 4-Supervision or Touching Assistance-helper provides verbal cues and/or touching/steadying and/or contact guard assistance as patient completes activity. Assistance may be provided throughout the activity or intermittently. 3-Partial/Moderate Assistance-helper does LESS THAN HALF the effort. [place] lifts, holds or supports trunk or limbs, but provides less than half the effort. 2-Substantial/Maximal Assistance-helper does MORE THAN HALF the effort. [place] lifts or holds trunk or limbs and provides more than half the effort. 7-Xyhthiacc-mqnitk does ALL the effort. Patient does none of the effort to complete the activity. Or, the assistance of 2 or more helpers is required for the patient to complete the activity. If activity was not attempted, code reason: 7-Patient Refused. 9-Not Applicable-not attempted and the patient did not perform the activity before the current illness, exacerbation or injury. 10-Not Attempted due to Environmental Limitations-(lack of equipment, weather restraints, etc.). 88-Not Attempted due to Medical Conditions or Safety Concerns. Roll Left to Right (QC): 4 Sit to Lying (QC): 4 Sit to Stand (QC): 3 Chair/[place] Xfer(QC): 3 Car Transfer (QC): 3 (/c FWW) Gait Training Does the Patient Walk?: Yes Walk 10 feet (QC): 3 Walk 50 ft with 2 Turns(QC): 88 Walk 150 ft (QC): 88 Walking 10ft/uneven surface-QC: 88 Gait Assistive Device: FWW Wheelchair Training Does the Pt Use a Wheelchair?: Yes Distance: 50' Wheel 50 ft with 2 turns (QC): 3 (assist to avoid (R) obstacles.) Wheel 150 ft (QC): 88 (unable to cover distance due to fatigue) Type of Wheelchair: Manual Stair Training #of Steps: 1 1 Step (curb) (QC): 1 (mod (A) of 2 (w/c backup) to hop up to 2" curb step with FWW, NWB (R) LE with cam boot) 4 Steps (QC): 88 (not safe) 12 Steps (QC): 88 (not safe) Balance Picking up an Object (QC): 88 (not safe, NWB (R) and need (B) UE support for balance) ADL-Treatment Eating (QC): 6 Oral Hygiene (QC): 6 (Pt sitting at sink, completed independently.) Shower/Bathe Self (QC): 4 Upper Body Dressing (QC): 5 Lower Body Dressing (QC): 3 On/Off Footwear (QC): 3 (Mod A) Toileting Hygiene (QC): 4 Toilet Transfer (QC): 4 Assessment/Plan Assessment and Plan Assess & Plan/Chief Complaint Assessment: Right bimalleolar ankle fracture, right 3rd metatarsal base fractures, right great toe proximal phalanx fracture, right 5th toe middle phalanx fracture s/p repair HTN DM CKD Plan: Pain control PT OT Monitor BS and BP 02/24/2023: Monitor pain BM regimen 02/25/2023: Supportive care Pain control Bowel regimen 02/26/2023: Supportive care Pain control 02/27/2023: Monitor closely Pain control (1) Closed bimalleolar fracture of right ankle (2) HTN (hypertension) ALFRED TAFOYA DO Feb 27, 2023 04:53
[2023-02-27 05:50] LABS: BASOPHILS # (AUTO) 0.1 10^3/uL (0.0-0.1); BASOPHILS % (AUTO) 1 % (0-10); EOSINOPHILS # (AUTO) 0.3 10^3/uL (0.0-0.3); EOSINOPHILS % (AUTO) 4 % (0-10); HEMATOCRIT 29 % (35-52); HEMOGLOBIN 9.7 g/dL (11.5-16.0); LYMPHOCYTES # (AUTO) 1.8 10^3/uL (1.0-4.0); LYMPHOCYTES % (AUTO) 21 % (12-44); MEAN CORPUSCULAR HEMOGLOBIN 30 pg (25-34); MEAN CORPUSCULAR HGB CONC 33 g/dL (32-36); MEAN CORPUSCULAR VOLUME 90 fL (80-99); MEAN PLATELET VOLUME 9.2 fL (9.0-12.2); MONOCYTES # (AUTO) 0.6 10^3/uL (0.0-1.0); MONOCYTES % (AUTO) 7 % (0-12); NEUTROPHILS # (AUTO) 5.8 10^3/uL (1.8-7.8); NEUTROPHILS % (AUTO) 67 % (42-75); PLATELET COUNT 391 10^3/uL (130-400); WHITE BLOOD COUNT 8.6 10^3/uL (4.3-11.0)
[2023-02-27 06:02] LABS: ALBUMIN 3.3 GM/DL (3.2-4.5); POTASSIUM 3.9 MMOL/L (3.6-5.0)
[2023-02-27 06:04] LABS: TOTAL PROTEIN 6.9 GM/DL (6.4-8.2)
[2023-02-27 06:06] LABS: BILIRUBIN,TOTAL 0.5 MG/DL (0.1-1.0)
[2023-02-27 06:08] LABS: CREATININE SERUM 1.48 MG/DL (0.60-1.30)
[2023-02-27] MEDS: inSUlin ASPART 1 UNIT/0.01 ML (PER UNIT) SC SCH ×4 (06:20→20:20)
[2023-02-27] MEDS: ACETAMINOPHEN 325 MG TABLET PO PRN (06:39)
[2023-02-27 08:00] VITALS: BP 128/75
[2023-02-27] MEDS: DOCUSATE SODIUM 100 MG CAPSULE PO SCH ×2 (08:14→20:44)
[2023-02-27] MEDS: SENNOSIDES 8.6 MG TABLET PO SCH ×2 (08:15→20:44)
[2023-02-27] MEDS: MUPIROCIN 2% OINTMENT 22 GM TUBE TOP SCH ×2 (08:16→21:59)
[2023-02-27] MEDS: oxyCODONE IMMEDIATE RELEASE 5 MG TABLET PO PRN ×3 (08:16→21:55)
--- NOTE | 2023-02-27 09:18 | Progress Note ---
LOREN TINSLEY 02/27/23 0918: Progress Note 67 year old female with a history of diabetes mellitus and hypertension who is recovering from multiple fractures. Patient has a right bimalleolar ankle fracture, right 3rd metatarsal base fractures, right great toe proximal phalanx fracture, right 5th toe middle phalanx fracture, repaired by Dr. Sweet. On a dmission, she is able to complete most ADLs and transfers with minimal assistance, with the goal of being completely independent by discharge. She is limited by her right foot, but is enthusiastic in doing exercises. Her pain is well controlled with oxycodone. Patient has some anxiety around dressing changes. Reassured. We are working on getting her to have a bowel movement. She reported having a bowel movement on the 4th floor, but hasn't had one since she moved to [facility] 3 days ago. MABEL TAFOYA DO 02/27/23 2008: Supervisory-Addendum Brief Verification & Attestation Participated in pt care: history, MDM, physical Personally performed: exam, history, MDM, supervision of care Care discussed with: Medical Student Procedures: n/a Results interpretation: Verified all documentation Verification and Attestation of Medical Student E/M Service A medical student performed and documented this service in my presence. I reviewed and verified all information documented by the medical student and made modifications to such information, when appropriate. I personally performed the physical exam and medical decision making. Mabel Tafoya, Feb 27, 2023,20:08 LOREN TINSLEY Feb 27, 2023 09:18 MABEL TAFOYA DO Feb 27, 2023 20:08
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
--- NOTE | 2023-02-27 13:23 | Occupational Ther Daily Note ---
OT Current Status-Daily Note Subjective Pt. alert, sitting in recliner. No c/o pain. Pt. agreed to therapy. Mental Status/Objective Patient Orientation: Person, Place, Time, Situation ADL-Treatment Pt. agreed to shower. Clothing was already gathered and placed in chair prior to OT session. SBA sit to stands, using FWW for SPT from surface to surface, adhered to NWB R LE. Pt. able to don/doff UBD by self after set up. Pt.threaded underwear and skirt over CAM boot in sitting then hiked skirt/underwear over hips while standing with CGA for standing balance. Pt. able to complete grooming hygiene sitting at sink independently. Pt able to don/doff L sock by self after set up. Therapy Code Descriptions/Definitions Functional [place] Measure: 0=Not Assessed/NA 4=Minimal Assistance 1=Total Assistance 5=Supervision or Setup 2=Maximal Assistance 6=Modified [place] 3=Moderate Assistance 7=Complete IndependenceSCALE: Activities may be completed with or without assistive devices. 2-Kstipqdudq-yjumbts completes the activity by him/herself with no assistance from a helper. 5-Set-up or Clean-up Assistance-helper sets up or cleans up; patient completes activity. [place] assists only prior to or following the activity. 4-Supervision or Touching Assistance-helper provides verbal cues and/or touching/steadying and/or contact guard assistance as patient completes activity. Assistance may be provided throughout the activity or intermittently. 3-Partial/Moderate Assistance-helper does LESS THAN HALF the effort. [place] lifts, holds or supports trunk or limbs, but provides less than half the effort. 2-Substantial/Maximal Assistance-helper does MORE THAN HALF the effort. [place] lifts or holds trunk or limbs and provides more than half the effort. 1-Hqhifpzuj-whejdv does ALL the effort. Patient does none of the effort to complete the activity. Or, the assistance of 2 or more helpers is required for the patient to complete the activity. If activity was not attempted, code reason: 7-Patient Refused. 9-Not Applicable-not attempted and the patient did not perform the activity befo re the current illness, exacerbation or injury. 10-Not Attempted due to Environmental Limitations-(lack of equipment, weather re straints, etc.). 88-Not Attempted due to Medical Conditions or Safety Concerns. Eating (QC): 6 (Pt is independent with eating.) Oral Hygiene (QC): 6 (Pt independent with oral hygiene sitting at sink.) Bathing Location: L Arm, R Arm, L Upper Leg, R Upper Leg, L Lower Leg (including foot), R Lower Leg (including foot), Chest, Abdomen, Buttocks, Perineal Area Shower/Bathe Self (QC): 4 (Sitting 100% of the time on BSC, pt completed shower using grabbars, hand held shower with SBA/set up to adjust water temperature and cover CAM boot. Pt able to reach all areas by self in sitting.) Upper Body Dressing (QC): 5 Lower Body Dressing (QC): 4 On/Off Footwear: 5 Other Treatment Pt. practiced w/c mobility from room to gym to work on arm strength. Pt. completed BUE exercises with 1 pound arm weights. Pt. completed standing balance activities with CGA while crossing mid-line, arm strengthening, endurance, safety awareness. After session, Pt. in recliner with call light/phone in reach and all needs met. OT Piper Installer Goals Piper Installer Goals Time Frame: Mar 17, 2023 Acute change in mental status: 0 Inattention: 0 Disorganized thinkin Altered level of consciousness: 0 Eating (QC): 6 Oral Hygiene (QC): 6 Toileting Hygiene (QC): 6 Shower/Bathe Self (QC): 5 Upper Body Dressing (QC): 6 Lower Body Dressing (QC): 6 On/Off Footwear (QC): 5 Additional Goals: 1-Demonstrate ADL Tasks, 2-Verbalize Understanding, 3- ImproveStrength/Marcello 1=Demonstrate adherence to instructed precautions during ADL tasks. 2=Patient will verbalize/demonstrate understanding of assistive devices/modifications for ADL. 3=Patient will improve strength/tolerance for activity to enable patient to perform ADL's. OT Education/Plan Problem List/Assessment Assessment: Decreased Safety Aware, Decreased UE Strength, Impaired Cognition, Impaired Funct Balance, Impaired Self-Care Skills Discharge Recommendations Plan/Recommendations: Continue POC Treatment Plan/Plan of Care Patient would benefit from OT for education, treatment and training to promote independence in ADL's, mobility, safety and/or upper extremity function for ADL's. Plan of Care: ADL Retraining, Functional Mobility, Group Exercise/Act as Ind, UE Funct Exercise/Act Treatment Duration: Mar 17, 2023 Frequency: 5 times per week Estimated Hrs Per Day: 1.5 hours per day Rehab Potential: Good Time Start Time: 07:30 Stop Time: 09:00 DATE: Feb 27, 2023 Total Time Billed (hr/min): 90 Billed Treatment Time 1 visit- ADL 3 (45 min), FA 3 (45 min) ABHIJTI BAUGH Feb 27, 2023 13:23
[2023-02-27 20:20] VITALS: BP 131/61
[2023-02-27] MEDS: MELATONIN 3 MG TABLET PO PRN (21:54)
[2023-02-27] MEDS: ENOXAPARIN 30 MG/0.3 ML SYRINGE SC SCH (21:55)
[2023-02-28] MEDS: inSUlin ASPART 1 UNIT/0.01 ML (PER UNIT) SC SCH ×4 (05:55→21:54)
[2023-02-28 07:14] VITALS: BP 136/58
[2023-02-28] MEDS: oxyCODONE IMMEDIATE RELEASE 5 MG TABLET PO PRN ×4 (07:40→21:57)
[2023-02-28] MEDS: SENNOSIDES 8.6 MG TABLET PO SCH ×2 (07:40→20:13)
[2023-02-28] MEDS: DOCUSATE SODIUM 100 MG CAPSULE PO SCH ×2 (07:40→20:12)
[2023-02-28] MEDS: MUPIROCIN 2% OINTMENT 22 GM TUBE TOP SCH ×2 (07:42→21:57)
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
--- NOTE | 2023-02-28 11:32 | Occupational Ther Daily Note ---
OT Current Status-Daily Note Subjective Pt. alert while with PT. No c/o pain. Pt. agreed to therapy. Co-treat with PT([id number]), skills of 2 clinicians required to decrease fall risk and increase safety during education/use with knee scooter and curb step. Pt highly anxious with each which required multiple therapists to decrease fall risk and alleviate pt's anxiety. PT focusing on transfers, ambulation and balance with mobility while OT focusing on B UE placement and support for safety during mobility. Mental Status/Objective Patient Orientation: Person, Place, Time, Situation ADL-Treatment Pt. agreed to shower. Clothing was already gathered and placed on bed prior to OT session. SBA sit to stands, using FWW for SPT from surface to surface, adhered to NWB R LE. Pt. independent with w/c mobility. Therapy Code Descriptions/Definitions Functional [place] Measure: 0=Not Assessed/NA 4=Minimal Assistance 1=Total Assistance 5=Supervision or Setup 2=Maximal Assistance 6=Modified [place] 3=Moderate Assistance 7=Complete IndependenceSCALE: Activities may be completed with or without assistive devices. 1-Ruqlueauqu-effugxs completes the activity by him/herself with no assistance from a helper. 5-Set-up or Clean-up Assistance-helper sets up or cleans up; patient completes activity. [place] assists only prior to or following the activity. 4-Supervision or Touching Assistance-helper provides verbal cues and/or touching/steadying and/or contact guard assistance as patient completes activity. Assistance may be provided throughout the activity or intermittently. 3-Partial/Moderate Assistance-helper does LESS THAN HALF the effort. [place] lifts, holds or supports trunk or limbs, but provides less than half the effort. 2-Substantial/Maximal Assistance-helper does MORE THAN HALF the effort. [place] lifts or holds trunk or limbs and provides more than half the effort. 8-Aiwgjxmho-lhapkm does ALL the effort. Patient does none of the effort to complete the activity. Or, the assistance of 2 or more helpers is required for the patient to complete the activity. If activity was not attempted, code reason: 7-Patient Refused. 9-Not Applicable-not attempted and the patient did not perform the activity be fore the current illness, exacerbation or injury. 10-Not Attempted due to Environmental Limitations-(lack of equipment, weather restraints, etc.). 88-Not Attempted due to Medical Conditions or Safety Concerns. Eating (QC): 6 (Pt. independent with eating.) Oral Hygiene (QC): 6 (Pt. independent with oral hygiene while sitting at sink. ) Bathing Location: L Arm, R Arm, L Upper Leg, R Upper Leg, L Lower Leg (including foot), R Lower Leg (including foot), Chest, Abdomen, Buttocks, Perineal Area Shower/Bathe Self (QC): 5 (Pt. sitting 100% of the time on BSC, pt completed shower using grabbars, hand held shower with SBA/set up to adjust water temperature and cover CAM boot. Pt able to reach all areas by self in sitting) Upper Body Dressing (QC): 5 (Pt. able to don/doff UBD by self after set up.) Lower Body Dressing (QC): 3 (Pt. needed assist to take off CAM boot then was able to thread underwear/pants while sitting then hiked underwear/pants over hips while standing with CGA for standing balance.) On/Off Footwear: 5 (Pt able to don/doff L sock by self after set up.) OT Estate Conservator Goals Senior Living Goals Time Frame: Mar 17, 2023 Acute change in mental status: 0 Inattention: 0 Disorganized thinkin Altered level of consciousness: 0 Eating (QC): 6 Oral Hygiene (QC): 6 Toileting Hygiene (QC): 6 Shower/Bathe Self (QC): 5 Upper Body Dressing (QC): 6 Lower Body Dressing (QC): 6 On/Off Footwear (QC): 5 Additional Goals: 1-Demonstrate ADL Tasks, 2-Verbalize Understanding, 3- ImproveStrength/Marcello 1=Demonstrate adherence to instructed precautions during ADL tasks. 2=Patient will verbalize/demonstrate understanding of assistive devices/modifications for ADL. 3=Patient will improve strength/tolerance for activity to enable patient to perform ADL's. OT Education/Plan Problem List/Assessment Assessment: Decreased Safety Aware, Decreased UE Strength, Impaired Cognition, Impaired Funct Balance Discharge Recommendations Plan/Recommendations: Continue POC Treatment Plan/Plan of Care Patient would benefit from OT for education, treatment and training to promote independence in ADL's, mobility, safety and/or upper extremity function for ADL's. Plan of Care: ADL Retraining, Functional Mobility, Group Exercise/Act as Ind, UE Funct Exercise/Act Treatment Duration: Mar 17, 2023 Frequency: 5 times per week Estimated Hrs Per Day: 1.5 hours per day Rehab Potential: Good Time Start Time: 09:00 Stop Time: 10:30 DATE: Feb 28, 2023 Total Time Billed (hr/min): 90 Billed Treatment Time 1 visit-ADL 3 (45 min) FA 3 (45 min) co-treat with PT 90 min ABHIJIT BAUGH Feb 28, 2023 11:32
--- NOTE | 2023-02-28 11:59 | PM&R Progress Note ---
Subjective HPI/CC On Admission Date Seen by Provider: Feb 28, 2023 Time Seen by Provider: 10:45 Subjective/Events-last exam 02/28/2023: Patient doing well Pain is controlled Wound looks good Nonweightbearing is maintained 02/27/2023: No major issues Pain controlled Sister is at bedside No falls Reviewed meds and labs 02/26/2023: Patient doing a lot better I did evaluate the wound and it looks really good No drainage No redness Swelling and bruising much improved Asked me who I was and I have been taking care of her since she was on fourth floor after she was admitted through the ER so unsure of her recall ability 02/25/2023: Patient doing pretty well Bowels have not moved for 2 days Pain is controlled 02/24/2023: Doing well Pain controlled BM+ No falls Reviewed meds and labs Review of Systems General: Fatigue, Malaise Objective Exam Vital Signs Vital Signs Date Time Temp Pulse Resp B/P (MAP) Pulse Ox O2 Delivery O2 Flow Rate FiO2 02/28/23 20:30 Room Air 02/28/23 19:56 36.3 74 16 136/62 (86) 98 02/25/23 07:36 0.00 Capillary Refill : General Appearance: No Apparent Distress, WD/WN, Chronically ill HEENT: PERRL/EOMI, Normal ENT Inspection, Pharynx Normal Neck: Full Range of Motion, Normal Inspection, Non Tender, Supple, Carotid Bruit Respiratory: Chest Non Tender, Lungs Clear, Normal Breath Sounds, No Accessory Muscle Use, No Respiratory Distress Cardiovascular: Regular Rate, Rhythm, No Edema, No Gallop, No JVD, No Murmur, Normal Peripheral Pulses Gastrointestinal: Normal Bowel Sounds, No Organomegaly, No Pulsatile Mass, Non Tender, Soft Back: Normal Inspection, No CVA Tenderness, No Vertebral Tenderness Extremity: Normal Capillary Refill, Normal Inspection, Normal Range of Motion (Except right ankle), Non Tender, No Calf Tenderness, No Pedal Edema Neurologic/Psychiatric: Alert, Oriented x3, No Motor/Sensory Deficits, Normal Mood/Affect, conveyor mechanic II-XII Norm as Tested, Abnormal Gait, Motor Weakness ( right leg) Skin: Normal Color, Warm/Dry Lymphatic: No Adenopathy Results/Procedures Lab Patient resulted labs reviewed. FIM Transfers Therapy Code Descriptions/Definitions Functional [place] Measure: 0=Not Assessed/NA 4=Minimal Assistance 1=Total Assistance 5=Supervision or Setup 2=Maximal Assistance 6=Modified [place] 3=Moderate Assistance 7=Complete IndependenceSCALE: Activities may be completed with or without assistive devices. 5-Kwfbuaunog-jgygfra completes the activity by him/herself with no assistance from a helper. 5-Set-up or Clean-up Assistance-helper sets up or cleans up; patient completes activity. [place] assists only prior to or following the activity. 4-Supervision or Touching Assistance-helper provides verbal cues and/or touching/steadying and/or contact guard assistance as patient completes activity. Assistance may be provided throughout the activity or intermittently. 3-Partial/Moderate Assistance-helper does LESS THAN HALF the effort. [place] lifts, holds or supports trunk or limbs, but provides less than half the effort. 2-Substantial/Maximal Assistance-helper does MORE THAN HALF the effort. [place] lifts or holds trunk or limbs and provides more than half the effort. 5-Rnekvsinu-scovrj does ALL the effort. Patient does none of the effort to complete the activity. Or, the assistance of 2 or more helpers is required for the patient to complete the activity. If activity was not attempted, code reason: 7-Patient Refused. 9-Not Applicable-not attempted and the patient did not perform the activity before the current illness, exacerbation or injury. 10-Not Attempted due to Environmental Limitations-(lack of equipment, weather restraints, etc.). 88-Not Attempted due to Medical Conditions or Safety Concerns. Roll Left to Right (QC): 4 Sit to Lying (QC): 6 Sit to Stand (QC): 6 Chair/Fdf-sb-Xholj Xfer(QC): 3 Car Transfer (QC): 3 (/c FWW) Gait Training Does the Patient Walk?: Yes Walk 10 feet (QC): 3 Walk 50 ft with 2 Turns(QC): 88 Walk 150 ft (QC): 88 Walking 10ft/uneven surface-QC: 88 Gait Assistive Device: FWW Wheelchair Training Does the Pt Use a Wheelchair?: Yes Distance: 50' Wheel 50 ft with 2 turns (QC): 5 Wheel 150 ft (QC): 5 Type of Wheelchair: Manual Stair Training Stair Training: Handrails/: uses walker #of Steps: 3 1 Step (curb) (QC): 2 4 Steps (QC): 88 (not safe) 12 Steps (QC): 88 (not safe) Stairs: Pattern: Hops Balance Picking up an Object (QC): 88 (not safe, NWB (R) and need (B) UE support for balance) ADL-Treatment Eating (QC): 6 (Pt. independent with eating.) Oral Hygiene (QC): 6 (Pt. independent with oral hygiene while sitting at sink. ) Bathing Location: L Arm, R Arm, L Upper Leg, R Upper Leg, L Lower Leg (i ncluding foot), R Lower Leg (including foot), Chest, Abdomen, Buttocks, Perineal Area Shower/Bathe Self (QC): 5 (Pt. able to bathe all areas by self while sitting on BSC 100% of the time after set up. ) Upper Body Dressing (QC): 5 Lower Body Dressing (QC): 3 On/Off Footwear (QC): 5 Toilet Transfer (QC): 4 Assessment/Plan Assessment and Plan Assess & Plan/Chief Complaint Assessment: Right bimalleolar ankle fracture, right 3rd metatarsal base fractures, right great toe proximal phalanx fracture, right 5th toe middle phalanx fracture s/p repair HTN DM CKD Plan: Pain control PT OT Monitor BS and BP 02/24/2023: Monitor pain BM regimen 02/25/2023: Supportive care Pain control Bowel regimen 02/26/2023: Supportive care Pain control 02/27/2023: Monitor closely Pain control 02/28/2023: Supportive care (1) Closed bimalleolar fracture of right ankle (2) HTN (hypertension) ALFRED TAFOYA DO Feb 28, 2023 11:59
[2023-02-28 19:56] VITALS: BP 136/62
[2023-02-28] MEDS: ENOXAPARIN 30 MG/0.3 ML SYRINGE SC SCH (21:57)
[2023-02-28] MEDS: MELATONIN 3 MG TABLET PO PRN (21:57)
[2023-03-01] MEDS: oxyCODONE IMMEDIATE RELEASE 5 MG TABLET PO PRN ×3 (02:16→21:57)
[2023-03-01] MEDS: inSUlin ASPART 1 UNIT/0.01 ML (PER UNIT) SC SCH ×4 (06:46→20:40)
[2023-03-01 07:31] VITALS: BP 143/68
[2023-03-01] MEDS: SENNOSIDES 8.6 MG TABLET PO SCH ×2 (08:02→19:45)
[2023-03-01] MEDS: DOCUSATE SODIUM 100 MG CAPSULE PO SCH ×2 (08:03→19:45)
[2023-03-01] MEDS: MUPIROCIN 2% OINTMENT 22 GM TUBE TOP SCH ×2 (08:04→22:04)
--- NOTE | 2023-03-01 08:33 | Progress Note ---
LOREN TINSLEY 03/01/23 0833: Progress Note 67 year old female with a history of diabetes mellitus and hypertension who is recovering from multiple fractures. Patient has a right bimalleolar ankle fracture, right 3rd metatarsal base fractures, right great toe proximal phalanx fracture, right 5th toe middle phalanx fracture, repaired by Dr. Sweet. On a dmission, she is able to complete most ADLs and transfers with minimal assistance, with the goal of being completely independent by discharge. She is limited by her right foot, but is enthusiastic in doing exercises. Her pain is well controlled with oxycodone. Patient has some anxiety around dressing changes. Reassured. Her sister is here helping set up a ramp and bed for her at home. Her daughter is coming today to learn how to change her dressing. Patient improving with PT/OT. MABEL TAFOYA DO 03/01/232022: Supervisory-Addendum Brief Verification & Attestation Participated in pt care: history, MDM, physical Personally performed: exam, history, MDM, supervision of care Care discussed with: Medical Student Procedures: n/a Results interpretation: Verified all documentation Verification and Attestation of Medical Student E/M Service A medical student performed and documented this service in my presence. I reviewed and verified all information documented by the medical student and made modifications to such information, when appropriate. I personally performed the physical exam and medical decision making. Mabel Tafoya, Mar 01, 2023,20:23 LOREN TINSLEY Mar 01, 2023 08:33 MABEL TAFOYA DO Mar 01, 2023 20:23
--- NOTE | 2023-03-01 09:24 | Physical Therapy Daily Note ---
PT Daily Note-Current Subjective Pt sitting in recliner upon arrival. Pt agrees to PT. Pain Location: No Pain Reported Section J - Health Conditions 1. Rarely or not at all 2. Occasionally 3. Frequently 4. Almost constantly 8. Unable to answer Pain Effect on Sleep: 1 Pain Interference with Therapy: 3 Pain Interference w/Day-to-Day: 3 Mental Status Patient Orientation: Person, Place Attachments: Other-See Comments (CAM boot for R LE) Transfers SCALE: Activities may be completed with or without assistive devices. 8-Ebzkmsottz-iemnjpv completes the activity by him/herself with no assistance from a helper. 5-Set-up or Clean-up Assistance-helper sets up or cleans up; patient completes activity. [place] assists only prior to or following the activity. 4-Supervision or Touching Assistance-helper provides verbal cues and/or touching/steadying and/or contact guard assistance as patient completes activity. Assistance may be provided throughout the activity or intermittently. 3-Partial/Moderate Assistance-helper does LESS THAN HALF the effort. [place] lifts, holds or supports trunk or limbs, but provides less than half the effort. 2-Substantial/Maximal Assistance-helper does MORE THAN HALF the effort. [place] lifts or holds trunk or limbs and provides more than half the effort. 7-Udsicavfg-tpdsch does ALL the effort. Patient does none of the effort to complete the activity. Or, the assistance of 2 or more helpers is required for the patient to complete the activity. If activity was not attempted, code reason: 7-Patient Refused. 9-Not Applicable-not attempted and the patient did not perform the activity before the current illness, exacerbation or injury. 10-Not Attempted due to Environmental Limitations-(lack of equipment, weather restraints, etc.). 88-Not Attempted due to Medical Conditions or Safety Concerns. Sit to Stand (QC): 5 Weight Bearing Right Lower Extremity: Right Non Weight Bearing Left Lower Extremity: Left Full Weight Bearing Cam boot on for ambulation and transfers Gait Training Distance: 75' x2 Walk 10 feet (QC): 4 Walk 50 ft with 2 Turns(QC): 4 Gait Persons Needed: 1 Gait Assistive Device: FWW Pt hops with w/c following in case for fatigue. Pt has small house and is already amb more than distance in house. Wheelchair Training Does the Pt Use a Wheelchair?: Yes Wheel 50 ft with 2 turns (QC): 5 Wheel 150 ft (QC): 5 Type of Wheelchair: Manual Exercises NuStep Minutes: 16 NuStep Workload: 3 Treatments TF to standing and amb in hallway, taking a couple RB as needed. Pt uses NuStep for 16m at WL 3 then takes short RB before TF back to w/c. Pt reports fatigue and asks to propel w/c back to room to end tx. All needs met, call light in hand. Assessment Current Status: Good Progress Pt needs QC at times for safety but has improved with transfers and mobility. Pt fatigues at times and needs rest breaks. PT Intermediate Goals Intermediate Goals PT Braille Operator Goals Time Frame: Mar 09, 2023 Roll Left & Right (QC): 6 Sit to Lying (QC): 6 Lying-Sitting on Side/Bed(QC): 6 Sit to Stand (QC): 5 Chair/Jpw-od-Fszae Xfer(QC): 5 Toilet Transfer (QC): 5 Car Transfer (QC): 5 Does the Patient Walk: Yes Walk 10 feet (QC): 5 (/c FWW) Walk 50ft with 2 Turns (QC): 5 (/c FWW, NWB) Walk 150 ft (QC): 4 Walking 10ft on Uneven Surface: 5 (/c FWW) 1 Step (curb) (QC): 4 (/c FWW, NWB (B) LE) 4 Steps (QC): 3 (/c 1 railing and (A) of 1 (to simulate home environment), NWB (R) LE) 12 Steps (QC): 3 (/c 1 railing and (A) of 1 (to simulate home environment), NWB (R) LE) Picking up an Object (QC): 5 (set up with scenery builder and FWW) Does the Pt use WC or Scooter?: Yes Wheel 50 feet with 2 turns (QC: 6 Type: Manual Wheel 150 feet: 6 Type: Manual PT Plan Problem List Problem List: Activity Tolerance, Safety Treatment/Plan Treatment Plan: Continue Plan of Care Treatment Plan: Bed Mobility, Education, Functional Activity [place], Functional Strength, Group Therapy, Gait, Safety, Therapeutic Exercise, Transfers, Other (W/C mobility) Treatment Duration: Mar 09, 2023 Frequency: At least 5 of 7 days/Wk (IRF) Estimated Hrs Per Day: 1.5 hours per day Patient and/or Family Agrees t: Yes Safety Risks/Education Patient Education: Gait Training, Correct Positioning, Safety Issues Teaching Recipient: Patient Teaching Methods: Discussion Response to Teaching: Verbalize Understanding Time Time In: 0800 Time Out: 0900 DATE: Mar 01, 2023 Total Billed Treatment Time: 60 Total Billed Treatment 1, GT x2 (30m), EX (20m) & WCH (10m) LEONILA JUAREZ COPYWRITER Mar 01, 2023 09:24
--- NOTE | 2023-03-01 11:09 | Occupational Ther Daily Note ---
OT Current Status-Daily Note Subjective Pt. alert sitting in recliner. No c/o pain. Pt. agreed to therapy. Mental Status/Objective Patient Orientation: Person, Place, Time, Situation ADL-Treatment Pt. agreed to shower. SBA for sit to stands with SPT for NWB on R LE using FWW from surface to surface. Pt. independent with w/c mobility. After session, Pt. in recliner with call light/phone in reach and all needs met. Therapy Code Descriptions/Definitions Functional [place] Measure: 0=Not Assessed/NA 4=Minimal Assistance 1=Total Assistance 5=Supervision or Setup 2=Maximal Assistance 6=Modified [place] 3=Moderate Assistance 7=Complete IndependenceSCALE: Activities may be completed with or without assistive devices. 0-Jskoqvbkfr-mmbyilo completes the activity by him/herself with no assistance from a helper. 5-Set-up or Clean-up Assistance-helper sets up or cleans up; patient completes activity. [place] assists only prior to or following the activity. 4-Supervision or Touching Assistance-helper provides verbal cues and/or touching/steadying and/or contact guard assistance as patient completes activity. Assistance may be provided throughout the activity or intermittently. 3-Partial/Moderate Assistance-helper does LESS THAN HALF the effort. [place] lifts, holds or supports trunk or limbs, but provides less than half the effort. 2-Substantial/Maximal Assistance-helper does MORE THAN HALF the effort. [place] lifts or holds trunk or limbs and provides more than half the effort. 5-Kwymlkmza-fudqei does ALL the effort. Patient does none of the effort to complete the activity. Or, the assistance of 2 or more helpers is required for the patient to complete the activity. If activity was not attempted, code reason: 7-Patient Refused. 9-Not Applicable-not attempted and the patient did not perform the activity before the current illness, exacerbation or injury. 10-Not Attempted due to Environmental Limitations-(lack of equipment, weather restraints, etc.). 88-Not Attempted due to Medical Conditions or Safety Concerns. Oral Hygiene (QC): 6 (Pt demonstrates ability to complete independently.) Bathing Location: L Arm, R Arm, L Upper Leg, R Upper Leg, L Lower Leg (including foot), R Lower Leg (including foot), Chest, Abdomen, Buttocks, Perineal Area Shower/Bathe Self (QC): 5 (Pt. able to SPT into shower with the use of grabbars. Sitting 100% of the time on BSC, Pt. completed shower using grabbars, hand held shower with set up to turn on water and cover CAM boot. Pt able to reach all areas by self in sitting.) Upper Body Dressing (QC): 5 (Donned/doffed upper body clothing by self after set up. ) Lower Body Dressing (QC): 4 (Pt. able to thread lower body clothing over B feet/legs then SBA in standing to stablizing self with FWW while hiking underwear over hips. ) On/Off Footwear: 5 (Pt. able to don/doff L sock and shoe by self after set up) Other Treatment Pt. completed BUE exercises using medium resistance theraband to increase strength for daily functional tasks. Skilled instruction for correct technique and modifications when needed. Pt requires vc/pc for correct position. OT Fci Goals Fci Goals Time Frame: Mar 17, 2023 Acute change in mental status: 0 Inattention: 0 Disorganized thinkin Altered level of consciousness: 0 Eating (QC): 6 Oral Hygiene (QC): 6 Toileting Hygiene (QC): 6 Shower/Bathe Self (QC): 5 Upper Body Dressing (QC): 6 Lower Body Dressing (QC): 6 On/Off Footwear (QC): 5 Additional Goals: 1-Demonstrate ADL Tasks, 2-Verbalize Understanding, 3- ImproveStrength/[place] 1=Demonstrate adherence to instructed precautions during ADL tasks. 2=Patient will verbalize/demonstrate understanding of assistive de vices/modifications for ADL. 3=Patient will improve strength/tolerance for activity to enable patient to perform ADL's. OT Education/Plan Problem List/Assessment Assessment: Decreased Safety Aware, Decreased UE Strength, Impaired Cognition, Impaired Coordination, Impaired Funct Balance Discharge Recommendations Plan/Recommendations: Continue POC Treatment Plan/Plan of Care Patient would benefit from OT for education, treatment and training to promote independence in ADL's, mobility, safety and/or upper extremity function for ADL's. Plan of Care: ADL Retraining, Functional Mobility, Group Exercise/Act as Ind, UE Funct Exercise/Act Treatment Duration: Mar 17, 2023 Frequency: 5 times per week Estimated Hrs Per Day: 1.5 hours per day Rehab Potential: Good Time Start Time: 10:00 Stop Time: 11:00 DATE: Mar 01, 2023 Total Time Billed (hr/min): 60 Billed Treatment Time 1 visit-ADL 3 (45 min) EX 1 (15 min) ABHIJIT BUAGH Mar 01, 2023 11:09
--- NOTE | 2023-03-01 12:01 | Physical Therapy Progress Note ---
Therapy Progress Note Pt has a mobility limitation that significantly impairs her ability to participate in one or more mobility-related activities of daily living (MRADL) in the home. The patient is able to safely use the Front Wheeled Walker and functional mobility deficit can be sufficiently resolved with use of a walker. This cannot be achieved by using a cane, another type of walker or wheelchair. LEONILA JUAREZ PTA Mar 01, 2023 12:01
--- NOTE | 2023-03-01 13:43 | Occupational Ther Daily Note ---
OT Current Status-Daily Note Subjective Pt alert, sitting in recliner. Pt agrees to therapy. Daughter in to complete family training. Co-treat with [id number], skills of 2 clinicians required for family training/education on pt's mobility and ability to complete daily functional tasks. PT focusing on transfers, w/c mobility and balance while OT focusing on functional mobility and daily functional tasks. Mental Status/Objective Patient Orientation: Person, Place, Time, Situation Attachments: Other-See Comments (CAM boot) ADL-Treatment Therapy Code Descriptions/Definitions Functional [place] Measure: 0=Not Assessed/NA 4=Minimal Assistance 1=Total Assistance 5=Supervision or Setup 2=Maximal Assistance 6=Modified [place] 3=Moderate Assistance 7=Complete IndependenceSCALE: Activities may be completed with or without assistive devices. 3-Glezwzxmln-bvmzvkn completes the activity by him/herself with no assistance from a helper. 5-Set-up or Clean-up Assistance-helper sets up or cleans up; patient completes activity. [place] assists only prior to or following the activity. 4-Supervision or Touching Assistance-helper provides verbal cues and/or touching/steadying and/or contact guard assistance as patient completes activity. Assistance may be provided throughout the activity or intermittently. 3-Partial/Moderate Assistance-helper does LESS THAN HALF the effort. [place] lifts, holds or supports trunk or limbs, but provides less than half the effort. 2-Substantial/Maximal Assistance-helper does MORE THAN HALF the effort. [place] lifts or holds trunk or limbs and provides more than half the effort. 8-Bnsqhxupb-ktklfv does ALL the effort. Patient does none of the effort to complete the activity. Or, the assistance of 2 or more helpers is required for the patient to complete the activity. If activity was not attempted, code reason: 7-Patient Refused. 9-Not Applicable-not attempted and the patient did not perform the activity b efore the current illness, exacerbation or injury. 10-Not Attempted due to Environmental Limitations-(lack of equipment, weather restraints, etc.). 88-Not Attempted due to Medical Conditions or Safety Concerns. Other Treatment Sit to stand independent. SBA/CGA for safety during ambulation with FWW, slight LOB though pt able to right self quickly. Independent with w/c mobility though does need cues to make sure brakes are locked before standing. Simulated toilet sit to stand, pt completed with supervision 3x's. Daughter and pt stated that there is a tub transfer bench at home that pt can use for transferring in/out of tub. Pt states that she has a hand held shower in tub. Independent with bed mobility. Pt and daughter verbalized understanding of pt's abilities and stated that pt's sister is working on ramp and transport w/c. After session, pt left in care of [facility] for wound education. All needs met. OT Custodial Goals Office Clerk Assistant Goals Time Frame: Mar 17, 2023 Acute change in mental status: 0 Inattention: 0 Disorganized thinkin Altered level of consciousness: 0 Eating (QC): 6 Oral Hygiene (QC): 6 Toileting Hygiene (QC): 6 Shower/Bathe Self (QC): 5 Upper Body Dressing (QC): 6 Lower Body Dressing (QC): 6 On/Off Footwear (QC): 5 Additional Goals: 1-Demonstrate ADL Tasks, 2-Verbalize Understanding, 3-Impro veStrength/[place] 1=Demonstrate adherence to instructed precautions during ADL tasks. 2=Patient will verbalize/demonstrate understanding of assistive devices/modifications for ADL. 3=Patient will improve strength/tolerance for activity to enable patient to perform ADL's. OT Education/Plan Problem List/Assessment Assessment: Decreased Safety Aware, Impaired Funct Balance, Impaired Self-Care Skills Discharge Recommendations Plan/Recommendations: Continue POC Treatment Plan/Plan of Care Patient would benefit from OT for education, treatment and training to promote independence in ADL's, mobility, safety and/or upper extremity function for ADL's. Plan of Care: ADL Retraining, Functional Mobility, Group Exercise/Act as Ind, UE Funct Exercise/Act Treatment Duration: Mar 17, 2023 Frequency: 5 times per week Estimated Hrs Per Day: 1.5 hours per day Rehab Potential: Good Time Start Time: 13:05 Stop Time: 13:35 DATE: Mar 01, 2023 Total Time Billed (hr/min): 30 Billed Treatment Time 1 visit-FA 2 (30 min) ABHIJIT BAUGH Mar 01, 2023 13:43
--- NOTE | 2023-03-01 13:46 | Physical Therapy Daily Note ---
PT Daily Note-Current Subjective Pt sitting in recliner upon arrival. Pt agrees to PT/OT co-treat for Family Training with pt's daughter Jacqueline. Pain Location: No Pain Reported Section J - Health Conditions 1. Rarely or not at all 2. Occasionally 3. Frequently 4. Almost constantly 8. Unable to answer Pain Effect on Sleep: 1 Pain Interference with Therapy: 3 Pain Interference w/Day-to-Day: 3 Mental Status Patient Orientation: Person, Place Attachments: Other-See Comments (CAM boot for R LE) Transfers SCALE: Activities may be completed with or without assistive devices. 5-Xihtkycpmm-xunuklb completes the activity by him/herself with no assistance from a helper. 5-Set-up or Clean-up Assistance-helper sets up or cleans up; patient completes activity. [place] assists only prior to or following the activity. 4-Supervision or Touching Assistance-helper provides verbal cues and/or touching/steadying and/or contact guard assistance as patient completes activity. Assistance may be provided throughout the activity or intermittently. 3-Partial/Moderate Assistance-helper does LESS THAN HALF the effort. [place] lifts, holds or supports trunk or limbs, but provides less than half the effort. 2-Substantial/Maximal Assistance-helper does MORE THAN HALF the effort. [place] lifts or holds trunk or limbs and provides more than half the effort. 9-Ztzvdgsat-hvgext does ALL the effort. Patient does none of the effort to complete the activity. Or, the assistance of 2 or more helpers is required for the patient to complete the activity. If activity was not attempted, code reason: 7-Patient Refused. 9-Not Applicable-not attempted and the patient did not perform the activity before the current illness, exacerbation or injury. 10-Not Attempted due to Environmental Limitations-(lack of equipment, weather restraints, etc.). 88-Not Attempted due to Medical Conditions or Safety Concerns. Sit to Lying (QC): 6 Sit to Stand (QC): 6 Weight Bearing Right Lower Extremity: Right Non Weight Bearing Left Lower Extremity: Left Full Weight Bearing Cam boot on for ambulation and transfers Gait Training Does the Patient Walk?: Yes Distance: 100', 75' Walk 10 feet (QC): 5 Walk 50 ft with 2 Turns(QC): 5 Gait Assistive Device: FWW Pt hops to maintain NWB for R LE. Treatments Co-treat with [id number], skills of 2 clinicians required for family training/education on pt's mobility and ability to complete daily functional tasks. PT focusing on transfers, w/c mobility and balance while OT focusing on functional mobility and daily functional tasks. SBA/CGA for safety during amb ulation with FWW, slight LOB though pt able to right self quickly. Independent with w/c mobility though does need cues to make sure brakes are locked before standing. Simulated toilet sit to stand, pt completed with supervision 3x's. Daughter and pt stated that there is a tub transfer bench at home that pt can use for transferring in/out of tub. Pt states that she has a hand held shower in tub. Independent with bed mobility. Pt and daughter verbalized understanding of pt's abilities and stated that pt's sister is working on ramp and transport w/c. After session, pt left in care of nrsg for wound education. All needs met. Assessment Current Status: Good Progress Repeated instructions for both pt & daughter on safety. Both continue to feel anxious about upcoming d/c. PT Long-Term Goals Shipping Inspector Goals PT Shipping Inspector Goals Time Frame: Mar 09, 2023 Roll Left & Right (QC): 6 Sit to Lying (QC): 6 Lying-Sitting on Side/Bed(QC): 6 Sit to Stand (QC): 5 Chair/Juh-lf-Aafah Xfer(QC): 5 Toilet Transfer (QC): 5 Car Transfer (QC): 5 Does the Patient Walk: Yes Walk 10 feet (QC): 5 (/c FWW) Walk 50ft with 2 Turns (QC): 5 (/c FWW, NWB) Walk 150 ft (QC): 4 Walking 10ft on Uneven Surface: 5 (/c FWW) 1 Step (curb) (QC): 4 (/c FWW, NWB (B) LE) 4 Steps (QC): 3 (/c 1 railing and (A) of 1 (to simulate home environment), NWB (R) LE) 12 Steps (QC): 3 (/c 1 railing and (A) of 1 (to simulate home environment), NWB (R) LE) Picking up an Object (QC): 5 (set up with small products assembler and FWW) Does the Pt use WC or Scooter?: Yes Wheel 50 feet with 2 turns (QC: 6 Type: Manual Wheel 150 feet: 6 Type: Manual PT Plan Problem List Problem List: Safety Treatment/Plan Treatment Plan: Continue Plan of Care Treatment Plan: Bed Mobility, Education, Functional Activity Marcello, Functional Strength, Group Therapy, Gait, Safety, Therapeutic Exercise, Transfers, Other (W/C mobility) Treatment Duration: Mar 09, 2023 Frequency: At least 5 of 7 days/Wk (IRF) Estimated Hrs Per Day: 1.5 hours per day Patient and/or Family Agrees t: Yes Safety Risks/Education Patient Education: Gait Training, Transfer Techniques, Correct Positioning, Safety Issues Teaching Recipient: Patient, Family Teaching Methods: Demonstration, Discussion Response to Teaching: Verbalize Understanding Time Time In: 1305 Time Out: 1335 DATE: Mar 01, 2023 Total Billed Treatment Time: 30 Total Billed Treatment 1, GT (15m) & FA (15m) LEONILA JUAREZ [employer] Mar 01, 2023 13:46
--- NOTE | 2023-03-01 16:40 | PM&R Progress Note ---
Subjective HPI/CC On Admission Date Seen by Provider: Mar 01, 2023 Time Seen by Provider: 11:00 Subjective/Events-last exam 03/01/2023: Improved overall Pain controlled Incision looks good per Dr Sweet 02/28/2023: Patient doing well Pain is controlled Wound looks good Nonweightbearing is maintained 02/27/2023: No major issues Pain controlled Sister is at bedside No falls Reviewed meds and labs 02/26/2023: Patient doing a lot better I did evaluate the wound and it looks really good No drainage No redness Swelling and bruising much improved Asked me who I was and I have been taking care of her since she was on fourth floor after she was admitted through the ER so unsure of her recall ability 02/25/2023: Patient doing pretty well Bowels have not moved for 2 days Pain is controlled 02/24/2023: Doing well Pain controlled BM+ No falls Reviewed meds and labs Review of Systems General: Fatigue, Malaise Objective Exam Vital Signs Vital Signs Date Time Temp Pulse Resp B/P (MAP) Pulse Ox O2 Delivery O2 Flow Rate FiO2 03/01/23 08:15 Room Air 03/01/23 07:31 36.2 73 18 143/68 (93) 100 02/25/23 07:36 0.00 Capillary Refill : General Appearance: No Apparent Distress, WD/WN, Chronically ill HEENT: PERRL/EOMI, Normal ENT Inspection, Pharynx Normal Neck: Full Range of Motion, Normal Inspection, Non Tender, Supple, Carotid Bruit Respiratory: Chest Non Tender, Lungs Clear, Normal Breath Sounds, No Accessory Muscle Use, No Respiratory Distress Cardiovascular: Regular Rate, Rhythm, No Edema, No Gallop, No JVD, No Murmur, Normal Peripheral Pulses Gastrointestinal: Normal Bowel Sounds, No Organomegaly, No Pulsatile Mass, Non Tender, Soft Back: Normal Inspection, No CVA Tenderness, No Vertebral Tenderness Extremity: Normal Capillary Refill, Normal Inspection, Normal Range of Motion (Except right ankle), Non Tender, No Calf Tenderness, No Pedal Edema Neurologic/Psychiatric: Alert, Oriented x3, No Motor/Sensory Deficits, Normal Mood/Affect, hand laminator II-XII Norm as Tested, Abnormal Gait, Motor Weakness ( right leg) Skin: Normal Color, Warm/Dry Lymphatic: No Adenopathy Results/Procedures Lab Patient resulted labs reviewed. FIM Transfers Therapy Code Descriptions/Definitions Functional [place] Measure: 0=Not Assessed/NA 4=Minimal Assistance 1=Total Assistance 5=Supervision or Setup 2=Maximal Assistance 6=Modified [place] 3=Moderate Assistance 7=Complete IndependenceSCALE: Activities may be completed with or without assistive devices. 0-Upgmfunwaf-vxeymjx completes the activity by him/herself with no assistance from a helper. 5-Set-up or Clean-up Assistance-helper sets up or cleans up; patient completes activity. [place] assists only prior to or following the activity. 4-Supervision or Touching Assistance-helper provides verbal cues and/or touching/steadying and/or contact guard assistance as patient completes activity. Assistance may be provided throughout the activity or intermittently. 3-Partial/Moderate Assistance-helper does LESS THAN HALF the effort. [place] lifts, holds or supports trunk or limbs, but provides less than half the effort. 2-Substantial/Maximal Assistance-helper does MORE THAN HALF the effort. [place] lifts or holds trunk or limbs and provides more than half the effort. 9-Unthkiroa-qpszyp does ALL the effort. Patient does none of the effort to complete the activity. Or, the assistance of 2 or more helpers is required for the patient to complete the activity. If activity was not attempted, code reason: 7-Patient Refused. 9-Not Applicable-not attempted and the patient did not perform the activity before the current illness, exacerbation or injury. 10-Not Attempted due to Environmental Limitations-(lack of equipment, weather restraints, etc.). 88-Not Attempted due to Medical Conditions or Safety Concerns. Roll Left to Right (QC): 4 Sit to Lying (QC): 6 Sit to Stand (QC): 6 Chair/Zyz-nh-Ccuyq Xfer(QC): 3 Car Transfer (QC): 3 (/c FWW) Gait Training Does the Patient Walk?: Yes Distance: 100', 75' Walk 10 feet (QC): 5 Walk 50 ft with 2 Turns(QC): 5 Walk 150 ft (QC): 88 Walking 10ft/uneven surface-QC: 88 Gait Persons Needed: 1 Gait Assistive Device: FWW Wheelchair Training Does the Pt Use a Wheelchair?: Yes Distance: 50' Wheel 50 ft with 2 turns (QC): 5 Wheel 150 ft (QC): 5 Type of Wheelchair: Manual Stair Training Stair Training: Handrails/: uses walker #of Steps: 3 1 Step (curb) (QC): 2 4 Steps (QC): 88 (not safe) 12 Steps (QC): 88 (not safe) Stairs: Pattern: Hops Balance Picking up an Object (QC): 88 (not safe, NWB (R) and need (B) UE support for balance) ADL-Treatment Eating (QC): 6 (Pt. independent with eating.) Oral Hygiene (QC): 6 (Pt demonstrates ability to complete independently.) Bathing Location: L Arm, R Arm, L Upper Leg, R Upper Leg, L Lower Leg (including foot), R Lower Leg (including foot), Chest, Abdomen, Buttocks, Perineal Area Shower/Bathe Self (QC): 5 (Pt. able to SPT into shower with the use of grabbars. Sitting 100% of the time on BSC, Pt. completed shower using grabbars, hand held shower with set up to turn on water and cover CAM boot. Pt able to reach all areas by self in sitting.) Upper Body Dressing (QC): 5 (Donned/doffed upper body clothing by self after set up. ) Lower Body Dressing (QC): 4 (Pt. able to thread lower body clothing over B feet/legs then SBA in standing to stablizing self with FWW while hiking underwear over hips. ) On/Off Footwear (QC): 5 (Pt. able to don/doff L sock and shoe by self after set up) Toilet Transfer (QC): 4 Assessment/Plan Assessment and Plan Assess & Plan/Chief Complaint Assessment: Right bimalleolar ankle fracture, right 3rd metatarsal base fractures, right great toe proximal phalanx fracture, right 5th toe middle phalanx fracture s/p repair HTN DM CKD Plan: Pain control PT OT Monitor BS and BP 02/24/2023: Monitor pain BM regimen 02/25/2023: Supportive care Pain control Bowel regimen 02/26/2023: Supportive care Pain control 02/27/2023: Monitor closely Pain control 02/28/2023: Supportive care 03/01/2023: Monitor closely (1) Closed bimalleolar fracture of right ankle (2) HTN (hypertension) ALFRED TAFOYA DO Mar 01, 2023 16:40
[2023-03-01 20:00] VITALS: BP 115/71
[2023-03-01] MEDS: ENOXAPARIN 30 MG/0.3 ML SYRINGE SC SCH (20:40)
[2023-03-01] MEDS: MELATONIN 3 MG TABLET PO PRN (21:57)
--- NOTE | 2023-03-02 04:51 | PM&R Progress Note ---
Subjective HPI/CC On Admission Date Seen by Provider: Mar 02, 2023 Time Seen by Provider: 07:45 Subjective/Events-last exam 03/02/2023: Pain is controlled No falls BM+ Improved overall 03/01/2023: Improved overall Pain controlled Incision looks good per Dr Sweet 02/28/2023: Patient doing well Pain is controlled Wound looks good Nonweightbearing is maintained 02/27/2023: No major issues Pain controlled Sister is at bedside No falls Reviewed meds and labs 02/26/2023: Patient doing a lot better I did evaluate the wound and it looks really good No drainage No redness Swelling and bruising much improved Asked me who I was and I have been taking care of her since she was on fourth floor after she was admitted through the ER so unsure of her recall ability 02/25/2023: Patient doing pretty well Bowels have not moved for 2 days Pain is controlled 02/24/2023: Doing well Pain controlled BM+ No falls Reviewed meds and labs Review of Systems General: Fatigue, Malaise Musculoskeletal: leg pain Objective Exam Vital Signs Vital Signs Date Time Temp Pulse Resp B/P (MAP) Pulse Ox O2 Delivery O2 Flow Rate FiO2 03/02/23 21:10 100 Room Air 03/02/23 20:15 36.4 77 20 131/61 (84) 03/02/23 08:05 21 03/02/23 07:51 0.00 Capillary Refill : General Appearance: No Apparent Distress, WD/WN, Chronically ill HEENT: PERRL/EOMI, Normal ENT Inspection, Pharynx Normal Neck: Full Range of Motion, Normal Inspection, Non Tender, Supple, Carotid Bruit Respiratory: Chest Non Tender, Lungs Clear, Normal Breath Sounds, No Accessory Muscle Use, No Respiratory Distress Cardiovascular: Regular Rate, Rhythm, No Edema, No Gallop, No JVD, No Murmur, Normal Peripheral Pulses Gastrointestinal: Normal Bowel Sounds, No Organomegaly, No Pulsatile Mass, Non Tender, Soft Back: Normal Inspection, No CVA Tenderness, No Vertebral Tenderness Extremity: Normal Capillary Refill, Normal Inspection, Normal Range of Motion (Except right ankle), Non Tender, No Calf Tenderness, No Pedal Edema Neurologic/Psychiatric: Alert, Oriented x3, No Motor/Sensory Deficits, Normal Mood/Affect, hi teacher II-XII Norm as Tested, Abnormal Gait, Motor Weakness ( right leg) Skin: Normal Color, Warm/Dry Lymphatic: No Adenopathy Results/Procedures Lab Patient resulted labs reviewed. FIM Transfers Therapy Code Descriptions/Definitions Functional [place] Measure: 0=Not Assessed/NA 4=Minimal Assistance 1=Total Assistance 5=Supervision or Setup 2=Maximal Assistance 6=Modified [place] 3=Moderate Assistance 7=Complete IndependenceSCALE: Activities may be completed with or without assistive devices. 8-Hfuyhxvhaz-cegyfmi completes the activity by him/herself with no assistance from a helper. 5-Set-up or Clean-up Assistance-helper sets up or cleans up; patient completes activity. [place] assists only prior to or following the activity. 4-Supervision or Touching Assistance-helper provides verbal cues and/or touching/steadying and/or contact guard assistance as patient completes activity. Assistance may be provided throughout the activity or intermittently. 3-Partial/Moderate Assistance-helper does LESS THAN HALF the effort. [place] lifts, holds or supports trunk or limbs, but provides less than half the effort. 2-Substantial/Maximal Assistance-helper does MORE THAN HALF the effort. [place] lifts or holds trunk or limbs and provides more than half the effort. 5-Qonhscffd-bcrpva does ALL the effort. Patient does none of the effort to complete the activity. Or, the assistance of 2 or more helpers is required for the patient to complete the activity. If activity was not attempted, code reason: 7-Patient Refused. 9-Not Applicable-not attempted and the patient did not perform the activity before the current illness, exacerbation or injury. 10-Not Attempted due to Environmental Limitations-(lack of equipment, weather restraints, etc.). 88-Not Attempted due to Medical Conditions or Safety Concerns. Roll Left to Right (QC): 4 Sit to Lying (QC): 6 Sit to Stand (QC): 6 Chair/Qie-dl-Yfytr Xfer(QC): 3 Car Transfer (QC): 3 (/c FWW) Gait Training Does the Patient Walk?: Yes Distance: 100', 75' Walk 10 feet (QC): 5 Walk 50 ft with 2 Turns(QC): 5 Walk 150 ft (QC): 88 Walking 10ft/uneven surface-QC: 88 Gait Persons Needed: 1 Gait Assistive Device: FWW Wheelchair Training Does the Pt Use a Wheelchair?: Yes Distance: 50' Wheel 50 ft with 2 turns (QC): 5 Wheel 150 ft (QC): 5 Type of Wheelchair: Manual Stair Training Stair Training: Handrails/: uses walker #of Steps: 3 1 Step (curb) (QC): 2 4 Steps (QC): 88 (not safe) 12 Steps (QC): 88 (not safe) Stairs: Pattern: Hops Balance Picking up an Object (QC): 88 (not safe, NWB (R) and need (B) UE support for balance) ADL-Treatment Eating (QC): 6 (Pt. independent with eating.) Oral Hygiene (QC): 6 (Pt demonstrates ability to complete independently.) Bathing Location: L Arm, R Arm, L Upper Leg, R Upper Leg, L Lower Leg (including foot), R Lower Leg (including foot), Chest, Abdomen, Buttocks, Perineal Area Shower/Bathe Self (QC): 5 (Pt. able to SPT into shower with the use of grabbars. Sitting 100% of the time on BSC, Pt. completed shower using grabbars, hand held shower with set up to turn on water and cover CAM boot. Pt able to reach all areas by self in sitting.) Upper Body Dressing (QC): 5 (Donned/doffed upper body clothing by self after set up. ) Lower Body Dressing (QC): 4 (Pt. able to thread lower body clothing over B feet/legs then SBA in standing to stablizing self with FWW while hiking underwear over hips. ) On/Off Footwear (QC): 5 (Pt. able to don/doff L sock and shoe by self after set up) Toilet Transfer (QC): 4 Assessment/Plan Assessment and Plan Assess & Plan/Chief Complaint Assessment: Right bimalleolar ankle fracture, right 3rd metatarsal base fractures, right great toe proximal phalanx fracture, right 5th toe middle phalanx fracture s/p repair HTN DM CKD Plan: Pain control PT OT Monitor BS and BP 02/24/2023: Monitor pain BM regimen 02/25/2023: Supportive care Pain control Bowel regimen 02/26/2023: Supportive care Pain control 02/27/2023: Monitor closely Pain control 02/28/2023: Supportive care 03/01/2023: Monitor closely 03/02/2023: Improved overall (1) Closed bimalleolar fracture of right ankle (2) HTN (hypertension) ALFRED TAFOYA DO Mar 02, 2023 04:51
[2023-03-02] MEDS: inSUlin ASPART 1 UNIT/0.01 ML (PER UNIT) SC SCH ×4 (05:57→21:09)
[2023-03-02] MEDS: oxyCODONE IMMEDIATE RELEASE 5 MG TABLET PO PRN ×2 (07:32→21:08)
[2023-03-02 07:41] VITALS: BP 141/61
[2023-03-02 08:05] VITALS: BP 141/61
[2023-03-02] MEDS: SENNOSIDES 8.6 MG TABLET PO SCH ×2 (08:51→21:05)
[2023-03-02] MEDS: DOCUSATE SODIUM 100 MG CAPSULE PO SCH ×2 (08:51→21:05)
[2023-03-02] MEDS: MUPIROCIN 2% OINTMENT 22 GM TUBE TOP SCH ×2 (08:52→21:08)
--- NOTE | 2023-03-02 09:03 | Progress Note ---
LOREN TINSLEY 03/02/23 0903: Progress Note 67 year old female with a history of diabetes mellitus and hypertension who is recovering from multiple fractures. Patient has a right bimalleolar ankle fracture, right 3rd metatarsal base fractures, right great toe proximal phalanx fracture, right 5th toe middle phalanx fracture, repaired by Dr. Sweet. On a dmission, she is able to complete most ADLs and transfers with minimal assistance, with the goal of being completely independent by discharge. She is limited by her right foot, but is enthusiastic in doing exercises. Her pain is well controlled with oxycodone. Patient has some anxiety around dressing changes. Reassured. Her sister is here helping set up a ramp and bed for her at home. Patient improving with PT/OT but is still not weight bearing on her right foot. She is in good spirits today. MABEL TAFOYA DO 03/03/23 0440: Supervisory-Addendum Brief Verification & Attestation Participated in pt care: history, MDM, physical Personally performed: exam, history, MDM, supervision of care Care discussed with: Medical Student Procedures: n/a Results interpretation: Verified all documentation Verification and Attestation of Medical Student E/M Service A medical student performed and documented this service in my presence. I reviewed and verified all information documented by the medical student and made modifications to such information, when appropriate. I personally performed the physical exam and medical decision making. Mabel Tafoya, Mar 03, 2023,04:40 LOREN TINSLEY Mar 02, 2023 09:03 MABEL TAFOYA DO Mar 03, 2023 04:40
--- NOTE | 2023-03-02 09:55 | Physical Therapy Daily Note ---
PT Daily Note-Current Subjective Pt presents in hallway in W/C finishing 1st tx /c OT. Pt denies current pain and states she had a pain pill before her shower this AM. Pt agrees to tx. Pain Section J - Health Conditions 1. Rarely or not at all 2. Occasionally 3. Frequently 4. Almost constantly 8. Unable to answer Pain Effect on Sleep: 1 Pain Interference with Therapy: 2 Pain Interference w/Day-to-Day: 3 Transfers SCALE: Activities may be completed with or without assistive devices. 1-Doqwgahgqt-iexysks completes the activity by him/herself with no assistance from a helper. 5-Set-up or Clean-up Assistance-helper sets up or cleans up; patient completes activity. [place] assists only prior to or following the activity. 4-Supervision or Touching Assistance-helper provides verbal cues and/or touching/steadying and/or contact guard assistance as patient completes activity. Assistance may be provided throughout the activity or intermittently. 3-Partial/Moderate Assistance-helper does LESS THAN HALF the effort. [place] lifts, holds or supports trunk or limbs, but provides less than half the effort. 2-Substantial/Maximal Assistance-helper does MORE THAN HALF the effort. [place] lifts or holds trunk or limbs and provides more than half the effort. 8-Vwhybukos-zrgght does ALL the effort. Patient does none of the effort to complete the activity. Or, the assistance of 2 or more helpers is required for the patient to complete the activity. If activity was not attempted, code reason: 7-Patient Refused. 9-Not Applicable-not attempted and the patient did not perform the activity before the current illness, exacerbation or injury. 10-Not Attempted due to Environmental Limitations-(lack of equipment, weather restraints, etc.). 88-Not Attempted due to Medical Conditions or Safety Concerns. Sit to Lying (QC): 6 Lying to Sitting/Side of Bed(Q: 6 Sit to Stand (QC): 5 Chair/Sqk-mg-Khwal Xfer(QC): 5 Weight Bearing Right Lower Extremity: Right Non Weight Bearing Left Lower Extremity: Left Full Weight Bearing Cam boot on for ambulation and transfers Gait Training Does the Patient Walk?: Yes Walk 10 feet (QC): 4 (SBA/CGA for safety) Gait Assistive Device: FWW Pt amb 40' /c FWW, CGA for vc's for hand placement and safe eccentric control. Wheelchair Training Does the Pt Use a Wheelchair?: Yes Wheel 50 ft with 2 turns (QC): 5 Wheel 150 ft (QC): 5 (SBA/CGA for safety and set-up) Pt wheeled 1000+' in W/C with B UE, SBA/CGA for safety measures. Exercises THER EX: Sit<>stand x 10 /c focus on eccentric control. (B) Side-stepping in II x 6ea x 2, for hip strengthening and education on moving around in a small area of home. Supine (B) hip ABD/ADD x 10 x 3, for hip strengthening. Supine TA sets x 10s x 10, for core strengthening. Seated L Ankle pumps x 10 x 3. Pt practiced safe procedure of Stand-Pivot transfer for W/C to recliner mobility. Treatments Pt wheeled 500+' in W/C, SBA/CGA, from 2nd floor to 1st floor, elevators and hallway. Pt amb 40' /c FWW, CGA. Pt wheeled 500+' in W/C, SBA/CGA, from 1st floor to 2nd floor, elevators and hallway. Pt conducted standing ther ex in PT gym. Pt conducted bed mobility and supine ther ex in PT gym. Pt wheeled from PT gym to room in W/C, SBA/CGA. Pt performed stand-pivot transfer from W/C to recliner. Pt conducted seated B ankle pumps while in recliner. Pt tx ended with her in recliner, call light on table next to her, and all needs met. Assessment Current Status: Good Progress Pt tolerated tx well, demonstrating knowledge of W/C mobility and watching STUNNER demonstrate skill/pt perform skill. Pt was very active in her healing and strengthening process and was willing to learn. PT City Plant Supervisor Goals City Plant Supervisor Goals PT City Plant Supervisor Goals Time Frame: Mar 09, 2023 Roll Left & Right (QC): 6 Sit to Lying (QC): 6 Lying-Sitting on Side/Bed(QC): 6 Sit to Stand (QC): 5 Chair/Ccx-hz-Xhxvk Xfer(QC): 5 Toilet Transfer (QC): 5 Car Transfer (QC): 5 Does the Patient Walk: Yes Walk 10 feet (QC): 5 (/c FWW) Walk 50ft with 2 Turns (QC): 5 (/c FWW, NWB) Walk 150 ft (QC): 4 Walking 10ft on Uneven Surface: 5 (/c FWW) 1 Step (curb) (QC): 4 (/c FWW, NWB (B) LE) 4 Steps (QC): 3 (/c 1 railing and (A) of 1 (to simulate home environment), NWB (R) LE) 12 Steps (QC): 3 (/c 1 railing and (A) of 1 (to simulate home environment), NWB (R) LE) Picking up an Object (QC): 5 (set up with hot dip plating supervisor and FWW) Does the Pt use WC or Scooter?: Yes Wheel 50 feet with 2 turns (QC: 6 Type: Manual Wheel 150 feet: 6 Type: Manual PT Plan Problem List Problem List: Functional Strength, Gait Treatment/Plan Treatment Plan: Continue Plan of Care Treatment Plan: Bed Mobility, Education, Functional Activity Marcello, Functional Strength, Group Therapy, Gait, Safety, Therapeutic Exercise, Transfers, Other (W /C mobility) Treatment Duration: Mar 09, 2023 Frequency: At least 5 of 7 days/Wk (IRF) Estimated Hrs Per Day: 1.5 hours per day Patient and/or Family Agrees t: Yes Safety Risks/Education Patient Education: Gait Training, Transfer Techniques, Correct Positioning, W/C Management, Safety Issues Teaching Recipient: Patient Teaching Methods: Demonstration, Discussion Response to Teaching: Verbalize Understanding, Return Demonstration Discharge Recommendations Plan Continue tx per pt POC. Time Time In: 0800 Time Out: 0930 DATE: Mar 02, 2023 Total Billed Treatment Time: 90 Total Billed Treatment 1, W/C 2 (30m), EX2 (30m), FA2 (30m) NESTOR RANDALL STUNNER Mar 02, 2023 09:55
--- NOTE | 2023-03-02 13:03 | Occupational Ther Daily Note ---
OT Current Status-Daily Note Subjective Pt. alert sitting in recliner. No c/o pain. Pt. agreed to therapy. Mental Status/Objective Patient Orientation: Person, Place, Time, Situation ADL-Treatment Pt. agreed to shower. Pt. SBA with sit to stand for SPT for NWB for R LE from recliner to w/c using FWW. Pt. independent with w/c mobility. After session, pt in recliner with call light/phone in reach and all needs met. Therapy Code Descriptions/Definitions Functional [place] Measure: 0=Not Assessed/NA 4=Minimal Assistance 1=Total Assistance 5=Supervision or Setup 2=Maximal Assistance 6=Modified [place] 3=Moderate Assistance 7=Complete IndependenceSCALE: Activities may be completed with or without assistive devices. 2-Txhaslgmvt-znsfqbg completes the activity by him/herself with no assistance from a helper. 5-Set-up or Clean-up Assistance-helper sets up or cleans up; patient completes activity. [place] assists only prior to or following the activity. 4-Supervision or Touching Assistance-helper provides verbal cues and/or touching/steadying and/or contact guard assistance as patient completes activity. Assistance may be provided throughout the activity or intermittently. 3-Partial/Moderate Assistance-helper does LESS THAN HALF the effort. [place] lifts, holds or supports trunk or limbs, but provides less than half the effort. 2-Substantial/Maximal Assistance-helper does MORE THAN HALF the effort. [place] lifts or holds trunk or limbs and provides more than half the effort. 0-Dsnzqakhq-payxqr does ALL the effort. Patient does none of the effort to complete the activity. Or, the assistance of 2 or more helpers is required for the patient to complete the activity. If activity was not attempted, code reason: 7-Patient Refused. 9-Not Applicable-not attempted and the patient did not perform the activity before the current illness, exacerbation or injury. 10-Not Attempted due to Environmental Limitations-(lack of equipment, weather restraints, etc.). 88-Not Attempted due to Medical Conditions or Safety Concerns. Oral Hygiene (QC): 6 (Pt. independent with grooming/oral hygiene while sitting at sink. ) Bathing Location: L Arm, R Arm, L Upper Leg, R Upper Leg, L Lower Leg (including foot), R Lower Leg (including foot), Chest, Abdomen, Buttocks, Perineal Area Shower/Bathe Self (QC): 5 (Pt. able to SPT into shower with the use of grabbars. Sitting 100% of the time on BSC, Pt. completed shower using grabbars, hand held shower. Pt able to reach all areas by self in sitting.) Upper Body Dressing (QC): 5 (Pt. able to don/doff UB by self after set up.) Lower Body Dressing (QC): 4 (Pt. able to thread underwear/skirt B LE by self. SBA while Pt. hikes underwear/skirt over hips while using FWW for balance. ) On/Off Footwear: 5 (Pt. able to thread L LE sock and shoe by self after set up. ) OT Assisted Goals Assisted Goals Time Frame: Mar 17, 2023 Acute change in mental status: 0 Inattention: 0 Disorganized thinkin Altered level of consciousness: 0 Eating (QC): 6 Oral Hygiene (QC): 6 Toileting Hygiene (QC): 6 Shower/Bathe Self (QC): 5 Upper Body Dressing (QC): 6 Lower Body Dressing (QC): 6 On/Off Footwear (QC): 5 Additional Goals: 1-Demonstrate ADL Tasks, 2-Verbalize Understanding, 3- ImproveStrength/[place] 1=Demonstrate adherence to instructed precautions during ADL tasks. 2=Patient will verbalize/demonstrate understanding of assistive devices/modifications for ADL. 3=Patient will improve strength/tolerance for activity to enable patient to perform ADL's. OT Education/Plan Problem List/Assessment Assessment: Decreased Safety Aware, Decreased UE Strength, Impaired Funct Balance Discharge Recommendations Plan/Recommendations: Continue POC Treatment Plan/Plan of Care Patient would benefit from OT for education, treatment and training to promote independence in ADL's, mobility, safety and/or upper extremity function for ADL's. Plan of Care: ADL Retraining, Functional Mobility, Group Exercise/Act as Ind, UE Funct Exercise/Act Treatment Duration: Mar 17, 2023 Frequency: 5 times per week Estimated Hrs Per Day: 1.5 hours per day Rehab Potential: Good Time Start Time: 07:30 Stop Time: 08:00 DATE: Mar 02, 2023 Total Time Billed (hr/min): 30 Billed Treatment Time 1 visit-ADL 2 (30 min) ABHIJIT BAUGH Mar 02, 2023 13:03
--- NOTE | 2023-03-02 13:21 | Occupational Ther Daily Note ---
OT Current Status-Daily Note Subjective Pt. alert sitting in recliner. No c/o pain. Pt. agreed to therapy. Mental Status/Objective Patient Orientation: Person, Place, Time, Situation Attachments: Other-See Comments (CAM boot) ADL-Treatment Pt. SBA with sit to stand with SPT adhering to NWB for R LE using FWW. Pt. independent with w/c mobility from room to therapy gym. Pt. completed B UE exercises with medium resistance with few v/c for hand placement. Dynamic standing balance with FWW with SBA, no LOB. Pt. able to demonstrate donning/doffing CAM boot independently. After session, pt in recliner with call light/phone in reach and all needs met. Therapy Code Descriptions/Definitions Functional [place] Measure: 0=Not Assessed/NA 4=Minimal Assistance 1=Total Assistance 5=Supervision or Setup 2=Maximal Assistance 6=Modified [place] 3=Moderate Assistance 7=Complete IndependenceSCALE: Activities may be completed with or without assistive devices. 1-Edxtnpgbta-apvkruh completes the activity by him/herself with no assistance from a helper. 5-Set-up or Clean-up Assistance-helper sets up or cleans up; patient completes activity. [place] assists only prior to or following the activity. 4-Supervision or Touching Assistance-helper provides verbal cues and/or touching/steadying and/or contact guard assistance as patient completes activity. Assistance may be provided throughout the activity or intermittently. 3-Partial/Moderate Assistance-helper does LESS THAN HALF the effort. [place] lifts, holds or supports trunk or limbs, but provides less than half the effort. 2-Substantial/Maximal Assistance-helper does MORE THAN HALF the effort. [place] lifts or holds trunk or limbs and provides more than half the effort. 5-Kwptnsgja-hqlsyf does ALL the effort. Patient does none of the effort to complete the activity. Or, the assistance of 2 or more helpers is required for the patient to complete the activity. If activity was not attempted, code reason: 7-Patient Refused. 9-Not Applicable-not attempted and the patient did not perform the activity before the current illness, exacerbation or injury. 10-Not Attempted due to Environmental Limitations-(lack of equipment, weather restraints, etc.). 88-Not Attempted due to Medical Conditions or Safety Concerns. OT Environmental Health Manager Goals Mcc Goals Time Frame: Mar 17, 2023 Acute change in mental status: 0 Inattention: 0 Disorganized thinkin Altered level of consciousness: 0 Eating (QC): 6 Oral Hygiene (QC): 6 Toileting Hygiene (QC): 6 Shower/Bathe Self (QC): 5 Upper Body Dressing (QC): 6 Lower Body Dressing (QC): 6 On/Off Footwear (QC): 5 Additional Goals: 1-Demonstrate ADL Tasks, 2-Verbalize Understanding, 3- ImproveStrength/[place] 1=Demonstrate adherence to instructed precautions during ADL tasks. 2=Patient will verbalize/demonstrate understanding of assistive devices/modifications for ADL. 3=Patient will improve strength/tolerance for activity to enable patient to perform ADL's. OT Education/Plan Problem List/Assessment Assessment: Decreased Safety Aware, Decreased UE Strength, Impaired Cognition, Impaired Funct Balance Discharge Recommendations Plan/Recommendations: Continue POC Treatment Plan/Plan of Care Patient would benefit from OT for education, treatment and training to promote independence in ADL's, mobility, safety and/or upper extremity function for ADL's. Plan of Care: ADL Retraining, Functional Mobility, Group Exercise/Act as Ind, U E Funct Exercise/Act Treatment Duration: Mar 17, 2023 Frequency: 5 times per week Estimated Hrs Per Day: 1.5 hours per day Rehab Potential: Good Time Start Time: 11:00 Stop Time: 12:00 DATE: Mar 02, 2023 Total Time Billed (hr/min): 60 Billed Treatment Time 1 visit-FA 2 (30 min) EX 2 (30 min) ABHIJIT BAUGH Mar 02, 2023 13:21
[2023-03-02 20:15] VITALS: BP 131/61
[2023-03-02] MEDS: MELATONIN 3 MG TABLET PO PRN (21:04)
[2023-03-02] MEDS: ENOXAPARIN 30 MG/0.3 ML SYRINGE SC SCH (21:04)
--- NOTE | 2023-03-03 05:33 | PM&R Progress Note ---
Subjective HPI/CC On Admission Date Seen by Provider: Mar 03, 2023 Time Seen by Provider: 11:30 Subjective/Events-last exam 03/03/2023: Patient doing well Discharge is planned on Monday No falls Pain is controlled 03/02/2023: Pain is controlled No falls BM+ Improved overall 03/01/2023: Improved overall Pain controlled Incision looks good per Dr Sweet 02/28/2023: Patient doing well Pain is controlled Wound looks good Nonweightbearing is maintained 02/27/2023: No major issues Pain controlled Sister is at bedside No falls Reviewed meds and labs 02/26/2023: Patient doing a lot better I did evaluate the wound and it looks really good No drainage No redness Swelling and bruising much improved Asked me who I was and I have been taking care of her since she was on fourth floor after she was admitted through the ER so unsure of her recall ability 02/25/2023: Patient doing pretty well Bowels have not moved for 2 days Pain is controlled 02/24/2023: Doing well Pain controlled BM+ No falls Reviewed meds and labs Review of Systems General: Fatigue, Malaise Objective Exam Vital Signs Vital Signs Date Time Temp Pulse Resp B/P (MAP) Pulse Ox O2 Delivery O2 Flow Rate FiO2 03/03/23 20:25 36.6 81 20 131/60 (83) 98 Room Air 03/02/23 08:05 21 03/02/23 07:51 0.00 Capillary Refill : General Appearance: No Apparent Distress, WD/WN, Chronically ill HEENT: PERRL/EOMI, Normal ENT Inspection, Pharynx Normal Neck: Full Range of Motion, Normal Inspection, Non Tender, Supple, Carotid Bruit Respiratory: Chest Non Tender, Lungs Clear, Normal Breath Sounds, No Accessory Muscle Use, No Respiratory Distress Cardiovascular: Regular Rate, Rhythm, No Edema, No Gallop, No JVD, No Murmur, Normal Peripheral Pulses Gastrointestinal: Normal Bowel Sounds, No Organomegaly, No Pulsatile Mass, Non Tender, Soft Back: Normal Inspection, No CVA Tenderness, No Vertebral Tenderness Extremity: Normal Capillary Refill, Normal Inspection, Normal Range of Motion (Except right ankle), Non Tender, No Calf Tenderness, No Pedal Edema Neurologic/Psychiatric: Alert, Oriented x3, No Motor/Sensory Deficits, Normal Mood/Affect, vessel operator II-XII Norm as Tested, Abnormal Gait, Motor Weakness ( right leg) Skin: Normal Color, Warm/Dry Lymphatic: No Adenopathy Results/Procedures Lab Patient resulted labs reviewed. FIM Transfers Therapy Code Descriptions/Definitions Functional [place] Measure: 0=Not Assessed/NA 4=Minimal Assistance 1=Total Assistance 5=Supervision or Setup 2=Maximal Assistance 6=Modified [place] 3=Moderate Assistance 7=Complete IndependenceSCALE: Activities may be completed with or without assistive devices. 7-Dnrzkfloxx-wwndhhd completes the activity by him/herself with no assistance from a helper. 5-Set-up or Clean-up Assistance-helper sets up or cleans up; patient completes activity. [place] assists only prior to or following the activity. 4-Supervision or Touching Assistance-helper provides verbal cues and/or touching/steadying and/or contact guard assistance as patient completes activity. Assistance may be provided throughout the activity or intermittently. 3-Partial/Moderate Assistance-helper does LESS THAN HALF the effort. [place] lifts, holds or supports trunk or limbs, but provides less than half the effort. 2-Substantial/Maximal Assistance-helper does MORE THAN HALF the effort. [place] lifts or holds trunk or limbs and provides more than half the effort. 3-Zhubyeizc-ildugk does ALL the effort. Patient does none of the effort to complete the activity. Or, the assistance of 2 or more helpers is required for the patient to complete the activity. If activity was not attempted, code reason: 7-Patient Refused. 9-Not Applicable-not attempted and the patient did not perform the activity before the current illness, exacerbation or injury. 10-Not Attempted due to Environmental Limitations-(lack of equipment, weather restraints, etc.). 88-Not Attempted due to Medical Conditions or Safety Concerns. Roll Left to Right (QC): 4 Sit to Lying (QC): 6 Sit to Stand (QC): 5 Chair/Fog-cn-Cebiw Xfer(QC): 5 Car Transfer (QC): 3 (/c FWW) Gait Training Does the Patient Walk?: Yes Distance: 100', 75' Walk 10 feet (QC): 4 (SBA/CGA for safety) Walk 50 ft with 2 Turns(QC): 5 Walk 150 ft (QC): 88 Walking 10ft/uneven surface-QC: 88 Gait Persons Needed: 1 Gait Assistive Device: FWW Wheelchair Training Does the Pt Use a Wheelchair?: Yes Distance: 50' Wheel 50 ft with 2 turns (QC): 5 Wheel 150 ft (QC): 5 (SBA/CGA for safety and set-up) Type of Wheelchair: Manual Stair Training Stair Training: Handrails/: uses walker #of Steps: 3 1 Step (curb) (QC): 2 4 Steps (QC): 88 (not safe) 12 Steps (QC): 88 (not safe) Stairs: Pattern: Hops Balance Picking up an Object (QC): 88 (not safe, NWB (R) and need (B) UE support for balance) ADL-Treatment Eating (QC): 6 (Pt. independent with eating.) Oral Hygiene (QC): 6 (Pt. independent with grooming/oral hygiene while sitting at sink. ) Bathing Location: L Arm, R Arm, L Upper Leg, R Upper Leg, L Lower Leg ( including foot), R Lower Leg (including foot), Chest, Abdomen, Buttocks, Perineal Area Shower/Bathe Self (QC): 5 (Pt. able to SPT into shower with the use of grabbars. Sitting 100% of the time on BSC, Pt. completed shower using grabbars, hand held shower. Pt able to reach all areas by self in sitting.) Upper Body Dressing (QC): 5 (Pt. able to don/doff UB by self after set up.) Lower Body Dressing (QC): 4 (Pt. able to thread underwear/skirt B LE by self. SBA while Pt. hikes underwear/skirt over hips while using FWW for balance. ) On/Off Footwear (QC): 5 (Pt. able to thread L LE sock and shoe by self after set up. ) Toilet Transfer (QC): 4 Assessment/Plan Assessment and Plan Assess & Plan/Chief Complaint Assessment: Right bimalleolar ankle fracture, right 3rd metatarsal base fractures, right great toe proximal phalanx fracture, right 5th toe middle phalanx fracture s/p repair HTN DM CKD Plan: Pain control PT OT Monitor BS and BP 02/24/2023: Monitor pain BM regimen 02/25/2023: Supportive care Pain control Bowel regimen 02/26/2023: Supportive care Pain control 02/27/2023: Monitor closely Pain control 02/28/2023: Supportive care 03/01/2023: Monitor closely 03/02/2023: Improved overall 03/03/2023: Supportive care Monitor closely (1) Closed bimalleolar fracture of right ankle (2) HTN (hypertension) ALFRED TAFOYA DO Mar 03, 2023 05:33
[2023-03-03] MEDS: inSUlin ASPART 1 UNIT/0.01 ML (PER UNIT) SC SCH ×4 (05:36→21:31)
[2023-03-03] MEDS: DOCUSATE SODIUM 100 MG CAPSULE PO SCH ×2 (07:26→21:30)
[2023-03-03] MEDS: SENNOSIDES 8.6 MG TABLET PO SCH ×2 (07:26→21:30)
[2023-03-03 07:38] VITALS: BP 144/63
[2023-03-03] MEDS: oxyCODONE IMMEDIATE RELEASE 5 MG TABLET PO PRN ×3 (07:43→21:30)
[2023-03-03] MEDS: MUPIROCIN 2% OINTMENT 22 GM TUBE TOP SCH ×2 (07:44→21:32)
--- NOTE | 2023-03-03 07:51 | Occupational Ther Daily Note ---
OT Current Status-Daily Note Subjective Pt alert, sitting in recliner. Pt states that she has been up since 4am due to pain in R foot, nrsg aware. Pt agrees to therapy. Mental Status/Objective Patient Orientation: Person, Place, Time, Situation Attachments: Other-See Comments (CAM Boot) ADL-Treatment Pt able to use FWW to gather clothing by self, no LOB. Pt. able to ambulate from surface to surface using FWW adhering to NWB for R LE independently. Therapy Code Descriptions/Definitions Functional [place] Measure: 0=Not Assessed/NA 4=Minimal Assistance 1=Total Assistance 5=Supervision or Setup 2=Maximal Assistance 6=Modified [place] 3=Moderate Assistance 7=Complete IndependenceSCALE: Activities may be completed with or without assistive devices. 1-Bnngysjruo-divawcz completes the activity by him/herself with no assistance from a helper. 5-Set-up or Clean-up Assistance-helper sets up or cleans up; patient completes activity. [place] assists only prior to or following the activity. 4-Supervision or Touching Assistance-helper provides verbal cues and/or touching/steadying and/or contact guard assistance as patient completes activity. Assistance may be provided throughout the activity or intermittently. 3-Partial/Moderate Assistance-helper does LESS THAN HALF the effort. [place] lifts, holds or supports trunk or limbs, but provides less than half the effort. 2-Substantial/Maximal Assistance-helper does MORE THAN HALF the effort. [place] lifts or holds trunk or limbs and provides more than half the effort. 7-Ormdrqnhq-hmugmx does ALL the effort. Patient does none of the effort to complete the activity. Or, the assistance of 2 or more helpers is required for the patient to complete the activity. If activity was not attempted, code reason: 7-Patient Refused. 9-Not Applicable-not attempted and the patient did not perform the activity before the current illness, exacerbation or injury. 10-Not Attempted due to Environmental Limitations-(lack of equipment, weather restraints, etc.). 88-Not Attempted due to Medical Conditions or Safety Concerns. Eating (QC): 6 (Opens containers/packages by self and uses regular utensils) Oral Hygiene (QC): 6 (Sitting at sink, completes independently.) Bathing Location: L Arm, R Arm, L Upper Leg, R Upper Leg, L Lower Leg (including foot), R Lower Leg (including foot), Chest, Abdomen, Buttocks, Perineal Area Shower/Bathe Self (QC): 5 (Pt. able to put trash bag over CAM boot and twist up by self letting the air out then needed assist with taping around knee. Able to bathe all areas while sitting on BSC 100% of the time while using LH sponge, hand held shower, and grabbars. ) Upper Body Dressing (QC): 6 (Pt. able to don/doff UB clothing independently. ) Lower Body Dressing (QC): 6 (Pt. able to don underwear/pants by self while seated in chair then is able to stand with no LOB and hike underwear/pants over hips using FWW to stabilize self. ) On/Off Footwear: 5 (Pt. able to don/doff L sock/shoe by self while seated in chair, after set up.) Other Treatment Pt completed B UE theraband exercises with medium resistance, 1 set 10 reps, to increase strength and stamina for daily functional tasks. Pt continues to need skilled instruction for correct technique with theraband exercises. Pt completed arm bike at 15 davidson resistance for 8 min with forward/backward rotation to increase strength and stamina for daily functional tasks. 1# wts attached to wrist to complete UE gross motor task to increase B UE strength. After session, pt sitting in recliner with call light/phone in reach. All needs met in room. Education OT Patient Education: Exercise program, Home exercise program Teaching Recipient: Patient Teaching Methods: Demonstration, Handout, Discussion Response to Teaching: Verbalize Understanding, Return Demonstration, Reinforcement Needed OT Warehouse Examiner Goals Warehouse Examiner Goals Time Frame: Mar 17, 2023 Acute change in mental status: 0 Inattention: 0 Disorganized thinkin Altered level of consciousness: 0 Eating (QC): 6 Oral Hygiene (QC): 6 Toileting Hygiene (QC): 6 Shower/Bathe Self (QC): 5 Upper Body Dressing (QC): 6 Lower Body Dressing (QC): 6 On/Off Footwear (QC): 5 Additional Goals: 1-Demonstrate ADL Tasks, 2-Verbalize Understanding, 3- ImproveStrength/[place] 1=Demonstrate adherence to instructed precautions during ADL tasks. 2=Patient will verbalize/demonstrate understanding of assistive devices/modifications for ADL. 3=Patient will improve strength/tolerance for activity to enable patient to perform ADL's. OT Education/Plan Problem List/Assessment Assessment: Decreased Activ Tolerance, Decreased UE Strength, Impaired Funct Balance, Impaired Self-Care Skills Discharge Recommendations Plan/Recommendations: Continue POC Treatment Plan/Plan of Care Patient would benefit from OT for education, treatment and training to promote independence in ADL's, mobility, safety and/or upper extremity function for ADL's. Plan of Care: ADL Retraining, Functional Mobility, Group Exercise/Act as Ind, UE Funct Exercise/Act Treatment Duration: Mar 17, 2023 Frequency: 5 times per week Estimated Hrs Per Day: 1.5 hours per day Rehab Potential: Good Time Start Time: 06:45 Stop Time: 08:15 DATE: Mar 03, 2023 Total Time Billed (hr/min): 90 Billed Treatment Time 1 visit-ADL 3 (45 min) EX 3 (45 min) ABHIJIT BAUGH Mar 03, 2023 07:51
--- NOTE | 2023-03-03 09:00 | Progress Note ---
LOREN TINSLEY 03/03/23 0900: Progress Note 67 year old female with a history of diabetes mellitus and hypertension who is recovering from multiple fractures. Patient has a right bimalleolar ankle fracture, right 3rd metatarsal base fractures, right great toe proximal phalanx fracture, right 5th toe middle phalanx fracture, repaired by Dr. Sweet. On a dmission, she is able to complete most ADLs and transfers with minimal assistance, with the goal of being completely independent by discharge. She is limited by her right foot, but is now able to complete transfers and ADLs with set up assistance. Her pain is well controlled with oxycodone. Patient has some anxiety around dressing changes. Reassured. Her sister is here helping set up a ramp and bed for her at home. Patient improving with PT/OT but is still not weight bearing on her right foot. She is a little anxious today about going home soon. MABEL TAFOYA DO 03/03/232055: Supervisory-Addendum Brief Verification & Attestation Participated in pt care: history, MDM, physical Personally performed: exam, history, MDM, supervision of care Care discussed with: Medical Student Procedures: n/a Results interpretation: Verified all documentation Verification and Attestation of Medical Student E/M Service A medical student performed and documented this service in my presence. I reviewed and verified all information documented by the medical student and made modifications to such information, when appropriate. I personally performed the physical exam and medical decision making. Mabel Tafoya Mar 03, 2023,20:56 LOREN TINSLEY Mar 03, 2023 09:00 MABEL TAFOYA DO Mar 03, 2023 20:56
--- NOTE | 2023-03-03 14:31 | Physical Therapy Daily Note ---
PT Daily Note-Current Subjective Pt presents in recliner with B feet elevated on foot rest. Pt agreed to tx. Pt denies pain, secondary to pain Rx recently given. Pt reports feeling exhausted after her shower in the morning. Pain Section J - Health Conditions 1. Rarely or not at all 2. Occasionally 3. Frequently 4. Almost constantly 8. Unable to answer Pain Effect on Sleep: 1 Pain Interference with Therapy: 2 Pain Interference w/Day-to-Day: 3 Transfers SCALE: Activities may be completed with or without assistive devices. 4-Rgvfvmxjnw-mxfzunk completes the activity by him/herself with no assistance from a helper. 5-Set-up or Clean-up Assistance-helper sets up or cleans up; patient completes activity. [place] assists only prior to or following the activity. 4-Supervision or Touching Assistance-helper provides verbal cues and/or touching/steadying and/or contact guard assistance as patient completes activity. Assistance may be provided throughout the activity or intermittently. 3-Partial/Moderate Assistance-helper does LESS THAN HALF the effort. [place] lifts, holds or supports trunk or limbs, but provides less than half the effort. 2-Substantial/Maximal Assistance-helper does MORE THAN HALF the effort. [place] lifts or holds trunk or limbs and provides more than half the effort. 1-Rtwfcjynt-frfsjz does ALL the effort. Patient does none of the effort to complete the activity. Or, the assistance of 2 or more helpers is required for the patient to complete the activity. If activity was not attempted, code reason: 7-Patient Refused. 9-Not Applicable-not attempted and the patient did not perform the activity before the current illness, exacerbation or injury. 10-Not Attempted due to Environmental Limitations-(lack of equipment, weather restraints, etc.). 88-Not Attempted due to Medical Conditions or Safety Concerns. Roll Left & Right (QC): 6 Sit to Lying (QC): 6 Lying to Sitting/Side of Bed(Q: 6 Sit to Stand (QC): 5 Chair/Xuf-al-Wrzmy Xfer(QC): 5 Weight Bearing Right Lower Extremity: Right Non Weight Bearing Left Lower Extremity: Left Full Weight Bearing Cam boot on for ambulation and transfers Wheelchair Training Does the Pt Use a Wheelchair?: Yes Wheel 50 ft with 2 turns (QC): 5 Wheel 150 ft (QC): 5 Type of Wheelchair: Manual Pt wheeled 80' x 2 /c manual W/C, SBA for setup. Exercises THER EX: Seated (B) LAQ x 10 x 3. Seated (B) Hip IR/ER /c Red ther band x 10 x 2. Seated (B) marching x 15 x 2. Supine (B) hip ABD/ADD and DF/PF x 10 x 2. Supine (L) INV/EV manual stretch x 10s x 3. Supine (B) SLR x 10 x 2. (R LE Lulú). Seated in w/c, (L) LE leg press x 10 x 2. Treatments Pt performed stand-pivot xfer from recliner to w/c. Pt wheeled 80' from room<>PT gym. Pt conducted ther ex in sitting and supine positions. Pt then wheeled 80' from PT gym<>room. Pt performed stand-pivot xfer from w/c to recliner. Pt tx was ended with pt in recliner, call light on table next to her, and all needs met. Assessment Current Status: Good Progress Pt was cooperative during tx. Pt required multiple breaks secondary to fatigue. PT [place]ade Classifier Goals Alf Goals PT Alf Goals Time Frame: Mar 09, 2023 Roll Left & Right (QC): 6 Sit to Lying (QC): 6 Lying-Sitting on Side/Bed(QC): 6 Sit to Stand (QC): 5 Chair/Ulr-qs-Msdrd Xfer(QC): 5 Toilet Transfer (QC): 5 Car Transfer (QC): 5 Does the Patient Walk: Yes Walk 10 feet (QC): 5 (/c FWW) Walk 50ft with 2 Turns (QC): 5 (/c FWW, NWB) Walk 150 ft (QC): 4 Walking 10ft on Uneven Surface: 5 (/c FWW) 1 Step (curb) (QC): 4 (/c FWW, NWB (B) LE) 4 Steps (QC): 3 (/c 1 railing and (A) of 1 (to simulate home environment), NWB (R) LE) 12 Steps (QC): 3 (/c 1 railing and (A) of 1 (to simulate home environment), NWB (R) LE) Picking up an Object (QC): 5 (set up with golf course architect and FWW) Does the Pt use WC or Scooter?: Yes Wheel 50 feet with 2 turns (QC: 6 Type: Manual Wheel 150 feet: 6 Type: Manual PT Plan Problem List Problem List: Functional Strength, Gait Treatment/Plan Treatment Plan: Continue Plan of Care Treatment Plan: Bed Mobility, Education, Functional Activity Marcello, Functional Strength, Group Therapy, Gait, Safety, Therapeutic Exercise, Transfers, Other (W/C mobility) Treatment Duration: Mar 09, 2023 Frequency: At least 5 of 7 days/Wk (IRF) Estimated Hrs Per Day: 1.5 hours per day Patient and/or Family Agrees t: Yes Safety Risks/Education Patient Education: Correct Positioning, W/C Management Teaching Recipient: Patient Teaching Methods: Demonstration, Discussion Response to Teaching: Verbalize Understanding, Return Demonstration Discharge Recommendations Plan Continue tx per pt POC. Time Time In: 914 Time Out: 1045 DATE: Mar 03, 2023 Total Billed Treatment Time: 90 Total Billed Treatment 1, EX3 (45m), FA2 (30m), W/C (15m) NESTOR RANDALL PTA Mar 03, 2023 14:30
[2023-03-03 20:25] VITALS: BP 131/60
[2023-03-03] MEDS: ENOXAPARIN 30 MG/0.3 ML SYRINGE SC SCH (21:30)
[2023-03-03] MEDS: MELATONIN 3 MG TABLET PO PRN (21:30)
[2023-03-04] MEDS: ACETAMINOPHEN 325 MG TABLET PO PRN (02:35)
--- NOTE | 2023-03-04 05:37 | PM&R Progress Note ---
Subjective HPI/CC On Admission Date Seen by Provider: Mar 04, 2023 Time Seen by Provider: 08:30 Subjective/Events-last exam 03/04/2023: Patient doing well Reviewed meds and labs No falls 03/03/2023: Patient doing well Discharge is planned on Monday No falls Pain is controlled 03/02/2023: Pain is controlled No falls BM+ Improved overall 03/01/2023: Improved overall Pain controlled Incision looks good per Dr Sweet 02/28/2023: Patient doing well Pain is controlled Wound looks good Nonweightbearing is maintained 02/27/2023: No major issues Pain controlled Sister is at bedside No falls Reviewed meds and labs 02/26/2023: Patient doing a lot better I did evaluate the wound and it looks really good No drainage No redness Swelling and bruising much improved Asked me who I was and I have been taking care of her since she was on fourth floor after she was admitted through the ER so unsure of her recall ability 02/25/2023: Patient doing pretty well Bowels have not moved for 2 days Pain is controlled 02/24/2023: Doing well Pain controlled BM+ No falls Reviewed meds and labs Review of Systems General: Fatigue, Malaise Objective Exam Vital Signs Vital Signs Date Time Temp Pulse Resp B/P (MAP) Pulse Ox O2 Delivery O2 Flow Rate FiO2 03/04/23 09:59 Room Air 03/04/23 08:00 36.5 67 14 126/61 (82) 99 03/02/23 08:05 21 03/02/23 07:51 0.00 Capillary Refill : General Appearance: No Apparent Distress, WD/WN, Chronically ill HEENT: PERRL/EOMI, Normal ENT Inspection, Pharynx Normal Neck: Full Range of Motion, Normal Inspection, Non Tender, Supple, Carotid Bruit Respiratory: Chest Non Tender, Lungs Clear, Normal Breath Sounds, No Accessory Muscle Use, No Respiratory Distress Cardiovascular: Regular Rate, Rhythm, No Edema, No Gallop, No JVD, No Murmur, Normal Peripheral Pulses Gastrointestinal: Normal Bowel Sounds, No Organomegaly, No Pulsatile Mass, Non Tender, Soft Back: Normal Inspection, No CVA Tenderness, No Vertebral Tenderness Extremity: Normal Capillary Refill, Normal Inspection, Normal Range of Motion (Except right ankle), Non Tender, No Calf Tenderness, No Pedal Edema Neurologic/Psychiatric: Alert, Oriented x3, No Motor/Sensory Deficits, Normal Mood/Affect, cotton broker II-XII Norm as Tested, Abnormal Gait, Motor Weakness ( right leg) Skin: Normal Color, Warm/Dry Lymphatic: No Adenopathy Results/Procedures Lab Patient resulted labs reviewed. FIM Transfers Therapy Code Descriptions/Definitions Functional [place] Measure: 0=Not Assessed/NA 4=Minimal Assistance 1=Total Assistance 5=Supervision or Setup 2=Maximal Assistance 6=Modified [place] 3=Moderate Assistance 7=Complete IndependenceSCALE: Activities may be completed with or without assistive devices. 9-Uhfcynkmfp-vyqugzr completes the activity by him/herself with no assistance from a helper. 5-Set-up or Clean-up Assistance-helper sets up or cleans up; patient completes activity. [place] assists only prior to or following the activity. 4-Supervision or Touching Assistance-helper provides verbal cues and/or touching/steadying and/or contact guard assistance as patient completes activit y. Assistance may be provided throughout the activity or intermittently. 3-Partial/Moderate Assistance-helper does LESS THAN HALF the effort. [place] lifts, holds or supports trunk or limbs, but provides less than half the effort. 2-Substantial/Maximal Assistance-helper does MORE THAN HALF the effort. [place] lifts or holds trunk or limbs and provides more than half the effort. 4-Hhizneyxi-pjzvow does ALL the effort. Patient does none of the effort to complete the activity. Or, the assistance of 2 or more helpers is required for the patient to complete the activity. If activity was not attempted, code reason: 7-Patient Refused. 9-Not Applicable-not attempted and the patient did not perform the activity before the current illness, exacerbation or injury. 10-Not Attempted due to Environmental Limitations-(lack of equipment, weather restraints, etc.). 88-Not Attempted due to Medical Conditions or Safety Concerns. Roll Left to Right (QC): 6 Sit to Lying (QC): 6 Sit to Stand (QC): 5 Chair/Ore-td-Ytsbr Xfer(QC): 5 Car Transfer (QC): 3 (/c FWW) Gait Training Does the Patient Walk?: Yes Distance: 100', 75' Walk 10 feet (QC): 4 (SBA/CGA for safety) Walk 50 ft with 2 Turns(QC): 5 Walk 150 ft (QC): 88 Walking 10ft/uneven surface-QC: 88 Gait Persons Needed: 1 Gait Assistive Device: FWW Wheelchair Training Does the Pt Use a Wheelchair?: Yes Distance: 50' Wheel 50 ft with 2 turns (QC): 5 Wheel 150 ft (QC): 5 Type of Wheelchair: Manual Stair Training Stair Training: Handrails/: uses walker #of Steps: 3 1 Step (curb) (QC): 2 4 Steps (QC): 88 (not safe) 12 Steps (QC): 88 (not safe) Stairs: Pattern: Hops Balance Picking up an Object (QC): 88 (not safe, NWB (R) and need (B) UE support for balance) ADL-Treatment Eating (QC): 6 (Opens containers/packages by self and uses regular utensils) Oral Hygiene (QC): 6 (Sitting at sink, completes independently.) Bathing Location: L Arm, R Arm, L Upper Leg, R Upper Leg, L Lower Leg (including foot), R Lower Leg (including foot), Chest, Abdomen, Buttocks, Perineal Area Shower/Bathe Self (QC): 5 (Pt. able to put trash bag over CAM boot and twist up by self letting the air out then needed assist with taping around knee. Able to bathe all areas while sitting on BSC 100% of the time while using LH sponge, hand held shower, and grabbars. ) Upper Body Dressing (QC): 6 (Pt. able to don/doff UB clothing independently. ) Lower Body Dressing (QC): 6 (Pt. able to don underwear/pants by self while seated in chair then is able to stand with no LOB and hike underwear/pants over hips using FWW to stabilize self. ) On/Off Footwear (QC): 5 (Pt. able to don/doff L sock/shoe by self while seated in chair, after set up.) Toilet Transfer (QC): 4 Assessment/Plan Assessment and Plan Assess & Plan/Chief Complaint Assessment: Right bimalleolar ankle fracture, right 3rd metatarsal base fractures, right great toe proximal phalanx fracture, right 5th toe middle phalanx fracture s/p repair HTN DM CKD Plan: Pain control PT OT Monitor BS and BP 02/24/2023: Monitor pain BM regimen 02/25/2023: Supportive care Pain control Bowel regimen 02/26/2023: Supportive care Pain control 02/27/2023: Monitor closely Pain control 02/28/2023: Supportive care 03/01/2023: Monitor closely 03/02/2023: Improved overall 03/03/2023: Supportive care Monitor closely 03/04/2023: Continue treatment (1) Closed bimalleolar fracture of right ankle (2) HTN (hypertension) ALFRED TAFOYA DO Mar 04, 2023 05:37
[2023-03-04] MEDS: inSUlin ASPART 1 UNIT/0.01 ML (PER UNIT) SC SCH ×4 (06:20→21:33)
[2023-03-04] MEDS: oxyCODONE IMMEDIATE RELEASE 5 MG TABLET PO PRN ×2 (07:47→12:10)
[2023-03-04] MEDS: DOCUSATE SODIUM 100 MG CAPSULE PO SCH ×2 (07:48→20:39)
[2023-03-04] MEDS: MUPIROCIN 2% OINTMENT 22 GM TUBE TOP SCH ×2 (07:48→20:40)
[2023-03-04] MEDS: SENNOSIDES 8.6 MG TABLET PO SCH ×2 (07:49→20:39)
[2023-03-04 08:00] VITALS: BP 126/61
--- NOTE | 2023-03-04 10:19 | Physical Therapy Daily Note ---
PT Daily Note-Current Subjective Pt presents in recliner with B feet elevated on rest. Pt denies pain. Pt agrees to tx. Pain Section J - Health Conditions 1. Rarely or not at all 2. Occasionally 3. Frequently 4. Almost constantly 8. Unable to answer Pain Effect on Sleep: 1 Pain Interference with Therapy: 2 Pain Interference w/Day-to-Day: 3 Transfers SCALE: Activities may be completed with or without assistive devices. 5-Yefikexqtn-uyxykrh completes the activity by him/herself with no assistance from a helper. 5-Set-up or Clean-up Assistance-helper sets up or cleans up; patient completes activity. [place] assists only prior to or following the activity. 4-Supervision or Touching Assistance-helper provides verbal cues and/or issac aleena/steadying and/or contact guard assistance as patient completes activity. Assistance may be provided throughout the activity or intermittently. 3-Partial/Moderate Assistance-helper does LESS THAN HALF the effort. [place] lifts, holds or supports trunk or limbs, but provides less than half the effort. 2-Substantial/Maximal Assistance-helper does MORE THAN HALF the effort. [place] lifts or holds trunk or limbs and provides more than half the effort. 7-Vqvqabxrj-ymltgg does ALL the effort. Patient does none of the effort to complete the activity. Or, the assistance of 2 or more helpers is required for the patient to complete the activity. If activity was not attempted, code reason: 7-Patient Refused. 9-Not Applicable-not attempted and the patient did not perform the activity before the current illness, exacerbation or injury. 10-Not Attempted due to Environmental Limitations-(lack of equipment, weather restraints, etc.). 88-Not Attempted due to Medical Conditions or Safety Concerns. Sit to Stand (QC): 6 Chair/Mfm-fz-Ukblh Xfer(QC): 6 Weight Bearing Right Lower Extremity: Right Non Weight Bearing Left Lower Extremity: Left Full Weight Bearing Cam boot on for ambulation and transfers Gait Training Does the Patient Walk?: Yes Walk 10 feet (QC): 4 Walk 50 ft with 2 Turns(QC): 4 Gait Assistive Device: FWW Pt amb 45' + 56' /c FWW, CGA for safety and steadying. Treatments Pt amb from room to hallway /c FWW, CGA. Pt required one rest break in W/C. Pt continued amb in hallway back to room, /c FWW, CGA. Pt tx was ended with pt in recliner, call light on table next to her and all needs met. Assessment Current Status: Good Progress Pt amb safely with fair nila. Pt did require one rest break. PT Isobutylene Operator Chief Goals Chcf Goals PT Isobutylene Operator Chief Goals Time Frame: Mar 09, 2023 Roll Left & Right (QC): 6 Sit to Lying (QC): 6 Lying-Sitting on Side/Bed(QC): 6 Sit to Stand (QC): 5 Chair/Kgf-xj-Fpvlq Xfer(QC): 5 Toilet Transfer (QC): 5 Car Transfer (QC): 5 Does the Patient Walk: Yes Walk 10 feet (QC): 5 (/c FWW) Walk 50ft with 2 Turns (QC): 5 (/c FWW, NWB) Walk 150 ft (QC): 4 Walking 10ft on Uneven Surface: 5 (/c FWW) 1 Step (curb) (QC): 4 (/c FWW, NWB (B) LE) 4 Steps (QC): 3 (/c 1 railing and (A) of 1 (to simulate home environment), NWB (R) LE) 12 Steps (QC): 3 (/c 1 railing and (A) of 1 (to simulate home environment), NWB (R) LE) Picking up an Object (QC): 5 (set up with research physicist and FWW) Does the Pt use WC or Scooter?: Yes Wheel 50 feet with 2 turns (QC: 6 Type: Manual Wheel 150 feet: 6 Type: Manual PT Plan Problem List Problem List: Gait Treatment/Plan Treatment Plan: Continue Plan of Care Treatment Plan: Bed Mobility, Education, Functional Activity Marcello, Functional Strength, Group Therapy, Gait, Safety, Therapeutic Exercise, Transfers, Other (W/C mobility) Treatment Duration: Mar 09, 2023 Frequency: At least 5 of 7 days/Wk (IRF) Estimated Hrs Per Day: 1.5 hours per day Patient and/or Family Agrees t: Yes Safety Risks/Education Patient Education: Gait Training Teaching Recipient: Patient Teaching Methods: Discussion Response to Teaching: Verbalize Understanding Discharge Recommendations Plan Continue with tx per pt POC. Time Time In: 924 Time Out: 939 DATE: Mar 04, 2023 Total Billed Treatment Time: 15 Total Billed Treatment 1, GT (15m) NESTOR RANDALL FIELD APPRAISER Mar 04, 2023 10:19
[2023-03-04 20:00] VITALS: BP 116/59
[2023-03-04] MEDS: MELATONIN 3 MG TABLET PO PRN (20:38)
[2023-03-04] MEDS: ENOXAPARIN 30 MG/0.3 ML SYRINGE SC SCH (20:39)
[2023-03-05] MEDS: ACETAMINOPHEN 325 MG TABLET PO PRN (00:52)
[2023-03-05] MEDS: inSUlin ASPART 1 UNIT/0.01 ML (PER UNIT) SC SCH ×4 (05:20→22:00)
[2023-03-05 07:33] VITALS: BP 128/58
[2023-03-05] MEDS: DOCUSATE SODIUM 100 MG CAPSULE PO SCH ×2 (08:55→20:00)
[2023-03-05] MEDS: MUPIROCIN 2% OINTMENT 22 GM TUBE TOP SCH ×2 (08:55→22:01)
[2023-03-05] MEDS: SENNOSIDES 8.6 MG TABLET PO SCH ×2 (08:56→20:01)
[2023-03-05] MEDS: oxyCODONE IMMEDIATE RELEASE 5 MG TABLET PO PRN ×2 (09:20→22:00)
--- NOTE | 2023-03-05 10:14 | PM&R Progress Note ---
Subjective HPI/CC On Admission Date Seen by Provider: Mar 05, 2023 Time Seen by Provider: 12:00 Subjective/Events-last exam 03/05/2023: Much improved status Ready for DC tomorrow No pain 03/04/2023: Patient doing well Reviewed meds and labs No falls 03/03/2023: Patient doing well Discharge is planned on Monday No falls Pain is controlled 03/02/2023: Pain is controlled No falls BM+ Improved overall 03/01/2023: Improved overall Pain controlled Incision looks good per Dr Sweet 02/28/2023: Patient doing well Pain is controlled Wound looks good Nonweightbearing is maintained 02/27/2023: No major issues Pain controlled Sister is at bedside No falls Reviewed meds and labs 02/26/2023: Patient doing a lot better I did evaluate the wound and it looks really good No drainage No redness Swelling and bruising much improved Asked me who I was and I have been taking care of her since she was on fourth floor after she was admitted through the ER so unsure of her recall ability 02/25/2023: Patient doing pretty well Bowels have not moved for 2 days Pain is controlled 02/24/2023: Doing well Pain controlled BM+ No falls Reviewed meds and labs Review of Systems General: Fatigue Objective Exam Vital Signs Vital Signs Date Time Temp Pulse Resp B/P (MAP) Pulse Ox O2 Delivery O2 Flow Rate FiO2 03/05/23 08:50 Room Air 03/05/23 07:33 36.6 62 18 128/58 (81) 99 03/02/23 08:05 21 03/02/23 07:51 0.00 Capillary Refill : General Appearance: No Apparent Distress, WD/WN, Chronically ill HEENT: PERRL/EOMI, Normal ENT Inspection, Pharynx Normal Neck: Full Range of Motion, Normal Inspection, Non Tender, Supple, Carotid Bruit Respiratory: Chest Non Tender, Lungs Clear, Normal Breath Sounds, No Accessory Muscle Use, No Respiratory Distress Cardiovascular: Regular Rate, Rhythm, No Edema, No Gallop, No JVD, No Murmur, Normal Peripheral Pulses Gastrointestinal: Normal Bowel Sounds, No Organomegaly, No Pulsatile Mass, Non Tender, Soft Back: Normal Inspection, No CVA Tenderness, No Vertebral Tenderness Extremity: Normal Capillary Refill, Normal Inspection, Normal Range of Motion (Except right ankle), Non Tender, No Calf Tenderness, No Pedal Edema Neurologic/Psychiatric: Alert, Oriented x3, No Motor/Sensory Deficits, Normal Mood/Affect, clinical scientist II-XII Norm as Tested, Abnormal Gait, Motor Weakness ( right leg) Skin: Normal Color, Warm/Dry Lymphatic: No Adenopathy Results/Procedures Lab Patient resulted labs reviewed. FIM Transfers Therapy Code Descriptions/Definitions Functional [place] Measure: 0=Not Assessed/NA 4=Minimal Assistance 1=Total Assistance 5=Supervision or Setup 2=Maximal Assistance 6=Modified [place] 3=Moderate Assistance 7=Complete IndependenceSCALE: Activities may be completed with or without assistive devices. 3-Ikjkxsuzgx-cuuxhmr completes the activity by him/herself with no assistance from a helper. 5-Set-up or Clean-up Assistance-helper sets up or cleans up; patient completes activity. Jasper assists only prior to or following the activity. 4-Supervision or Touching Assistance-helper provides verbal cues and/or touching/steadying and/or contact guard assistance as patient completes activity. Assistance may be provided throughout the activity or intermittently. 3-Partial/Moderate Assistance-helper does LESS THAN HALF the effort. Jasper lifts, holds or supports trunk or limbs, but provides less than half the effort. 2-Substantial/Maximal Assistance-helper does MORE THAN HALF the effort. Jasper lifts or holds trunk or limbs and provides more than half the effort. 8-Xwhhbpjoc-nnmerv does ALL the effort. Patient does none of the effort to complete the activity. Or, the assistance of 2 or more helpers is required for the patient to complete the activity. If activity was not attempted, code reason: 7-Patient Refused. 9-Not Applicable-not attempted and the patient did not perform the activity before the current illness, exacerbation or injury. 10-Not Attempted due to Environmental Limitations-(lack of equipment, weather restraints, etc.). 88-Not Attempted due to Medical Conditions or Safety Concerns. Roll Left to Right (QC): 6 Sit to Lying (QC): 6 Sit to Stand (QC): 6 Chair/Gci-mq-Jmqvt Xfer(QC): 6 Car Transfer (QC): 3 (/c FWW) Gait Training Does the Patient Walk?: Yes Distance: 100', 75' Walk 10 feet (QC): 4 Walk 50 ft with 2 Turns(QC): 4 Walk 150 ft (QC): 88 Walking 10ft/uneven surface-QC: 88 Gait Persons Needed: 1 Gait Assistive Device: FWW Wheelchair Training Does the Pt Use a Wheelchair?: Yes Distance: 50' Wheel 50 ft with 2 turns (QC): 5 Wheel 150 ft (QC): 5 Type of Wheelchair: Manual Stair Training Stair Training: Handrails/: uses walker #of Steps: 3 1 Step (curb) (QC): 2 4 Steps (QC): 88 (not safe) 12 Steps (QC): 88 (not safe) Stairs: Pattern: Hops Balance Picking up an Object (QC): 88 (not safe, NWB (R) and need (B) UE support for balance) ADL-Treatment Eating (QC): 6 (Opens containers/packages by self and uses regular utensils) Oral Hygiene (QC): 6 (Sitting at sink, completes independently.) Bathing Location: L Arm, R Arm, L Upper Leg, R Upper Leg, L Lower Leg (including foot), R Lower Leg (including foot), Chest, Abdomen, Buttocks, Perineal Area Shower/Bathe Self (QC): 5 (Pt. able to put trash bag over CAM boot and twist up by self letting the air out then needed assist with taping around knee. Able to bathe all areas while sitting on BSC 100% of the time while using LH sponge, hand held shower, and grabbars. ) Upper Body Dressing (QC): 6 (Pt. able to don/doff UB clothing independently. ) Lower Body Dressing (QC): 6 (Pt. able to don underwear/pants by self while seated in chair then is able to stand with no LOB and hike underwear/pants over hips using FWW to stabilize self. ) On/Off Footwear (QC): 5 (Pt. able to don/doff L sock/shoe by self while seated in chair, after set up.) Toilet Transfer (QC): 4 Assessment/Plan Assessment and Plan Assess & Plan/Chief Complaint Assessment: Right bimalleolar ankle fracture, right 3rd metatarsal base fractures, right great toe proximal phalanx fracture, right 5th toe middle phalanx fracture s/p repair HTN DM CKD Plan: Pain control PT OT Monitor BS and BP 02/24/2023: Monitor pain BM regimen 02/25/2023: Supportive care Pain control Bowel regimen 02/26/2023: Supportive care Pain control 02/27/2023: Monitor closely Pain control 02/28/2023: Supportive care 03/01/2023: Monitor closely 03/02/2023: Improved overall 03/03/2023: Supportive care Monitor closely 03/04/2023: Continue treatment 03/05/2023: Monitor closely (1) Closed bimalleolar fracture of right ankle (2) HTN (hypertension) ALFRED TAFOYA DO Mar 05, 2023 10:14
[2023-03-05 19:44] VITALS: BP 130/60
[2023-03-05] MEDS ORDERED: DOCU100C37 PO (19:44)
[2023-03-05] MEDS ORDERED: MUPI22OI2 TOP (19:44)
[2023-03-05] MEDS ORDERED: OXC5T PO (19:44)
[2023-03-05] MEDS ORDERED: MELA3TAB39 PO (19:44)
[2023-03-05] MEDS ORDERED: ACET325T49 PO (19:44)
[2023-03-05] MEDS ORDERED: ONDA4TAB11 PO (19:44)
--- NOTE | 2023-03-05 19:45 | D/C HH Face to Face Order ---
D/C Face to Face Orders Reconcile Patient Problems Problems Reviewed?: Yes Instructions for Patient Via [facility], Patient Instructions/FollowUp: PCP 1 week Physician to follow Patient: PCP Discharge Diet for Home: No Restrictions Patient Problems: Right ankle fracture Patient Data-Allergies,Ht & Wt Patient Allergies: Coded Allergies: AUDREYANo Known Allergies (Verified Allergy, Unknown, 01/05/07) Home Health Need/Face to Face Date of Face to Face: Mar 05, 2023 Clinical Findings: Muscle weakness, Non or partial weight bearing, Pain with ambulation I have seen Pt [id number]: Yes Discharged To: Home Diagnosis/Conditions: Right ankle fracture Patient is Homebound due to: Non-weight bearing, Pain w/ambulation Homebound Status Due to the above stated illness, injury or surgical procedure (medical condition or diagnosis) and associated clinical findings, the patient is homebound because of his/her inability to leave home except with aid of a supportive device and/or person AND leaving the home requires a considerable and taxing effort or is medically contraindicated. Pt req the following assistanc: Walker Home Health Nursing Orders Home Health Services Order: Nursing Services, Automobile Body Worker-Evaluate & Treat, Physical Therapy-Evaluate & Treat Certify Stmt I certify that this patient is under my care and that I, a nurse practitioner or a physician; a restaurant assistant working with me, had a face to face encounter that - meets the physician face to face encounter requirements with this patient as dated. ALFRED TAFOYA DO Mar 05, 2023 19:45
[2023-03-05] MEDS: MELATONIN 3 MG TABLET PO PRN (22:00)
[2023-03-05] MEDS: ENOXAPARIN 30 MG/0.3 ML SYRINGE SC SCH (22:00)
--- NOTE | 2023-03-06 05:05 | Discharge Summary ---
Diagnosis/Chief Complaint Date of Admission Feb 23, 2023 at 13:25 Date of Discharge Discharge Date: Mar 06, 2023 Discharge Diagnosis Assessment: Right bimalleolar ankle fracture, right 3rd metatarsal base fractures, right great toe proximal phalanx fracture, right 5th toe middle phalanx fracture s/p repair HTN DM CKD Plan: Pain control PT OT Monitor BS and BP 02/24/2023: Monitor pain BM regimen 02/25/2023: Supportive care Pain control Bowel regimen 02/26/2023: Supportive care Pain control 02/27/2023: Monitor closely Pain control 02/28/2023: Supportive care 03/01/2023: Monitor closely 03/02/2023: Improved overall 03/03/2023: Supportive care Monitor closely 03/04/2023: Continue treatment 03/05/2023: Monitor closely (1) Closed bimalleolar fracture of right ankle (2) HTN (hypertension) Discharge Summary Discharge Physical Examination Allergies: Coded Allergies: NKANo Known Allergies (Verified Allergy, Unknown, 01/05/07) Vitals & I&Os Vital Signs Date Time Temp Pulse Resp B/P (MAP) Pulse Ox O2 Delivery O2 Flow Rate FiO2 03/06/23 17:00 35.9 85 16 132/61 99 Room Air 03/02/23 08:05 21 03/02/23 07:51 0.00 General Appearance: Alert, Oriented X3, Cooperative Respiratory: Clear to Auscultation Cardiovascular: Regular Rate Psych/Mental Status: Mental Status NL Hospital Course Was the Problem List Reviewed?: Yes Hospital course: Patient had an uneventful lengthy hospital course after repair of right ankle fracture. She was able to participate in all therapy. Labs remained stable. Blood pressure remained stable. Ultimately was able to regain function in order to return home and home health was ordered. Labs (last 24 hrs) Laboratory Tests 02/23/23 05:08: Mean Blood Glucose 128H, Hemoglobin A1c 6.1H 02/23/23 16:15: Glucometer 103 02/23/23 20:06: Glucometer 149H 02/24/23 04:45: Sodium Level 138, Potassium Level 4.2, Chloride Level 104, Carbon Dioxide Level 23, Anion Gap 11, Blood Urea Nitrogen 22H, Creatinine 1.33H, Estimat Glomerular Filtration Rate 44, BUN/Creatinine Ratio 17, Glucose Level 115H, Calcium Level 8.7, Corrected Calcium 9.4, Total Bilirubin 0.5, Aspartate Amino Transf (AST/SGOT) 17, Alanine Aminotransferase (ALT/SGPT) 7, Alkaline Phosphatase 64, Total Protein 6.3L, Albumin 3.1L 02/24/23 04:55: White Blood Count 9.1, Red Blood Count 3.23L, Hemoglobin 9.5L, Hematocrit 29L, Mean Corpuscular Volume 89, Mean Corpuscular Hemoglobin 29, Mean Corpuscular Hemoglobin Concent 33, Red Cell Distribution Width 13.5, Platelet Count 267, Shadia n Platelet Volume 9.5, Immature Granulocyte % (Auto) 0, Neutrophils (%) (Auto) 70, Lymphocytes (%) (Auto) 18, Monocytes (%) (Auto) 8, Eosinophils (%) (Auto) 3, Basophils (%) (Auto) 1, Neutrophils # (Auto) 6.4, Lymphocytes # (Auto) 1.7, Monocytes # (Auto) 0.7, Eosinophils # (Auto) 0.3, Basophils # (Auto) 0.1, Immature Granulocyte # (Auto) 0.0 02/24/23 11:50: Glucometer 135H 02/24/23 16:26: Glucometer 109 02/24/23 19:32: Glucometer 121H 02/25/23 05:29: Glucometer 101 02/25/23 11:19: Glucometer 94 02/25/23 15:20: Glucometer 112H 02/25/23 20:01: Glucometer 154H 02/26/23 05:33: Glucometer 90 02/26/23 11:55: Glucometer 94 02/26/23 17:01: Glucometer 125H 02/26/23 20:06: Glucometer 118H 02/27/23 05:34: White Blood Count 8.6, Red Blood Count 3.25L, Hemoglobin 9.7L, Hematocrit 29L, Mean Corpuscular Volume 90, Mean Corpuscular Hemoglobin 30, Mean Corpuscular Hemoglobin Concent 33, Red Cell Distribution Width 13.2, Platelet Count 391, Mean Platelet Volume 9.2, Immature Granulocyte % (Auto) 1, Neutrophils (%) (Auto) 67, Lymphocytes (%) (Auto) 21, Monocytes (%) (Auto) 7, Eosinophils (%) (Auto) 4, Basophils (%) (Auto) 1, Neutrophils # (Auto) 5.8, Lymphocytes # (Auto) 1.8, Monocytes # (Auto) 0.6, Eosinophils # (Auto) 0.3, Basophils # (Auto) 0.1, Immature Granulocyte # (Auto) 0.1 02/27/23 05:41: Sodium Level 138, Potassium Level 3.9, Chloride Level 102, Carbon Dioxide Level 24, Anion Gap 12, Blood Urea Nitrogen 35H, Creatinine 1.48H, Estimat Glomerular Filtration Rate 39, BUN/Creatinine Ratio 24, Glucose Level 94, Calcium Level 9 .0, Corrected Calcium 9.6, Total Bilirubin 0.5, Aspartate Amino Transf (AST/SGOT) 14, Alanine Aminotransferase (ALT/SGPT) 9, Alkaline Phosphatase 69, Total Protein 6.9, Albumin 3.3 02/27/23 11:01: Glucometer 121H 02/27/23 15:13: Glucometer 113H 02/27/23 20:17: Glucometer 126H 02/28/23 05:28: Glucometer 87 02/28/23 10:25: Glucometer 175H 02/28/23 15:28: Glucometer 143H 02/28/23 20:23: Glucometer 117H 03/01/23 06:41: Glucometer 88 03/01/23 11:12: Glucometer 115H 03/01/23 16:17: Glucometer 117H 03/01/23 20:19: Glucometer 169H 03/02/23 05:55: Glucometer 97 03/02/23 11:01: Glucometer 102 03/02/23 16:41: Glucometer 136H 03/02/23 21:08: Glucometer 114H 03/03/23 05:32: Glucometer 95 03/03/23 10:58: Glucometer 101 03/03/23 16:01: Glucometer 121H 03/03/23 20:24: Glucometer 151H 03/04/23 06:18: Glucometer 98 03/04/23 11:11: Glucometer 89 03/04/23 15:48: Glucometer 129H 03/04/23 21:16: Glucometer 133H 03/05/23 05:18: Glucometer 98 03/05/23 10:43: Glucometer 133H 03/05/23 15:54: Glucometer 130H 03/05/23 20:25: Glucometer 156H 03/06/23 05:58: Glucometer 83 03/06/23 11:13: Glucometer 97 03/06/23 16:02: Glucometer 160H Pending Labs Laboratory Tests 02/23/23 05:08: Mean Blood Glucose 128, Hemoglobin A1c 6.1 02/23/23 16:15: Glucometer 103 02/23/23 20:06: Glucometer 149 02/24/23 04:45: Sodium Level 138, Potassium Level 4.2, Chloride Level 104, Carbon Dioxide Level 23, Anion Gap 11, Blood Urea Nitrogen 22, Creatinine 1.33, Estimat Glomerular Filtration Rate 44, BUN/Creatinine Ratio 17, Glucose Level 115, Calcium Level 8.7, Corrected Calcium 9.4, Total Bilirubin 0.5, Aspartate Amino Transf (AST/SGOT) 17, Alanine Aminotransferase (ALT/SGPT) 7, Alkaline Phosphatase 64, Total Protein 6.3, Albumin 3.1 02/24/23 04:55: White Blood Count 9.1, Red Blood Count 3.23, Hemoglobin 9.5, Hematocrit 29, Mean Corpuscular Volume 89, Mean Corpuscular Hemoglobin 29, Mean Corpuscular Hemoglobin Concent 33, Red Cell Distribution Width 13.5, Platelet Count 267, Mean Platelet Volume 9.5, Immature Granulocyte % (Auto) 0, Neutrophils (%) (Auto) 70, Lymphocytes (%) (Auto) 18, Monocytes (%) (Auto) 8, Eosinophils (%) (Auto) 3, Basophils (%) (Auto) 1, Neutrophils # (Auto) 6.4, Lymphocytes # (Auto) 1.7, Monocytes # (Auto) 0.7, Eosinophils # (Auto) 0.3, Basophils # (Auto) 0.1, Immature Granulocyte # (Auto) 0.0 02/24/23 11:50: Glucometer 135 02/24/23 16:26: Glucometer 109 02/24/23 19:32: Glucometer 121 02/25/23 05:29: Glucometer 101 02/25/23 11:19: Glucometer 94 02/25/23 15:20: Glucometer 112 02/25/23 20:01: Glucometer 154 02/26/23 05:33: Glucometer 90 02/26/23 11:55: Glucometer 94 02/26/23 17:01: Glucometer 125 02/26/23 20:06: Glucometer 118 02/27/23 05:34: White Blood Count 8.6, Red Blood Count 3.25, Hemoglobin 9.7, Hematocrit 29, Mean Corpuscular Volume 90, Mean Corpuscular Hemoglobin 30, Mean Corpuscular Hemoglobin Concent 33, Red Cell Distribution Width 13.2, Platelet Count 391, Mean Platelet Volume 9.2, Immature Granulocyte % (Auto) 1, Neutrophils (%) (Auto) 67, Lymphocytes (%) (Auto) 21, Monocytes (%) (Auto) 7, Eosinophils (%) (Auto) 4, Basophils (%) (Auto) 1, Neutrophils # (Auto) 5.8, Lymphocytes # (Auto) 1.8, Monocytes # (Auto) 0.6, Eosinophils # (Auto) 0.3, Basophils # (Auto) 0.1, Immature Granulocyte # (Auto) 0.1 02/27/23 05:41: Sodium Level 138, Potassium Level 3.9, Chloride Level 102, Carbon Dioxide Level 24, Anion Gap 12, Blood Urea Nitrogen 35, Creatinine 1.48, Estimat Glomerular Filtration Rate 39, BUN/Creatinine Ratio 24, Glucose Level 94, Calcium Level 9.0, Corrected Calcium 9.6, Total Bilirubin 0.5, Aspartate Amino Transf (AST/SGOT) 14, Alanine Aminotransferase (ALT/SGPT) 9, Alkaline Phosphatase 69, Total Protein 6.9, Albumin 3.3 02/27/23 11:01: Glucometer 121 02/27/23 15:13: Glucometer 113 02/27/23 20:17: Glucometer 126 02/28/23 05:28: Glucometer 87 02/28/23 10:25: Glucometer 175 02/28/23 15:28: Glucometer 143 02/28/23 20:23: Glucometer 117 03/01/23 06:41: Glucometer 88 03/01/23 11:12: Glucometer 115 03/01/23 16:17: Glucometer 117 03/01/23 20:19: Glucometer 169 03/02/23 05:55: Glucometer 97 03/02/23 11:01: Glucometer 102 03/02/23 16:41: Glucometer 136 03/02/23 21:08: Glucometer 114 03/03/23 05:32: Glucometer 95 03/03/23 10:58: Glucometer 101 03/03/23 16:01: Glucometer 121 03/03/23 20:24: Glucometer 151 03/04/23 06:18: Glucometer 98 03/04/23 11:11: Glucometer 89 03/04/23 15:48: Glucometer 129 03/04/23 21:16: Glucometer 133 03/05/23 05:18: Glucometer 98 03/05/23 10:43: Glucometer 133 03/05/23 15:54: Glucometer 130 03/05/23 20:25: Glucometer 156 03/06/23 05:58: Glucometer 83 03/06/23 11:13: Glucometer 97 03/06/23 16:02: Glucometer 160 Discharge Home Medications: Active Scripts Active Acetaminophen 325 Mg Tablet 650 Mg PO Q6H PRN Melatonin 3 Mg Tablet 3 Mg PO HS PRN Mupirocin 2 % Oint...g. 0 Gm TOP BID twice daily Ondansetron Odt (Ondansetron) 4 Mg Tab.rapdis 4 Mg PO Q6H PRN Docusate Sodium 100 Mg Capsule 100 Mg PO BID PRN Oxyir Tablet (Oxycodone HCl) 5 Mg Tab 5 Mg PO Q8H PRN Reported [Bloodsyl] 1 Ea PO DAILY Cholestoff Complete 300Mg Sfgl (Phytosterol/Pantethine) 300 Mg-100 Mg Capsule 1 Each PO 1800 W/MEAL [Berberine] 1 Ea PO BID WITH MEALS Aspirin 81 Mg Tab.chew 81 Mg PO DAILY Instructions to patient/family Please see electronic discharge instructions given to patient. Diagnosis/Problems Diagnosis/Problems (1) Closed bimalleolar fracture of right ankle (2) HTN (hypertension) ALFRED TAFOYA DO Mar 06, 2023 05:05
[2023-03-06] MEDS: inSUlin ASPART 1 UNIT/0.01 ML (PER UNIT) SC SCH ×3 (05:59→16:18)
[2023-03-06] MEDS: oxyCODONE IMMEDIATE RELEASE 5 MG TABLET PO PRN ×2 (06:21→14:45)
--- NOTE | 2023-03-06 07:32 | Occupational Ther Daily Note ---
OT Current Status-Daily Note Subjective Pt alert, sitting in recliner. Pt agrees to therapy. No c/o pain. Pt to discharge today, completed QC's this date. Mental Status/Objective Patient Orientation: Person, Place, Time, Situation Attachments: Other-See Comments (CAM boot) ADL-Treatment Pt. agreed to shower. Pt. able to ambulate using FWW adhering to NWB to R LE. Pt. able to gather UB/LB clothing independently using FWW. After session, pt in recliner with call light/phone in reach and all needs met. Therapy Code Descriptions/Definitions Functional [place] Measure: 0=Not Assessed/NA 4=Minimal Assistance 1=Total Assistance 5=Supervision or Setup 2=Maximal Assistance 6=Modified [place] 3=Moderate Assistance 7=Complete IndependenceSCALE: Activities may be completed with or without assistive devices. 7-Mprjmvaywk-ykcdwwc completes the activity by him/herself with no assistance from a helper. 5-Set-up or Clean-up Assistance-helper sets up or cleans up; patient completes activity. Sage assists only prior to or following the activity. 4-Supervision or Touching Assistance-helper provides verbal cues and/or touching/steadying and/or contact guard assistance as patient completes activity. Assistance may be provided throughout the activity or intermittently. 3-Partial/Moderate Assistance-helper does LESS THAN HALF the effort. Sage lifts, holds or supports trunk or limbs, but provides less than half the effort. 2-Substantial/Maximal Assistance-helper does MORE THAN HALF the effort. Sage lifts or holds trunk or limbs and provides more than half the effort. 0-Tbsrvlmqa-qzcace does ALL the effort. Patient does none of the effort to complete the activity. Or, the assistance of 2 or more helpers is required for the patient to complete the activity. If activity was not attempted, code reason: 7-Patient Refused. 9-Not Applicable-not attempted and the patient did not perform the activity before the current illness, exacerbation or injury. 10-Not Attempted due to Environmental Limitations-(lack of equipment, weather restraints, etc.). 88-Not Attempted due to Medical Conditions or Safety Concerns. Eating (QC): 6 (Independent with opening packages/containers and eating with regular utensils.) Oral Hygiene (QC): 6 (Standing at sink stabilizing on counter, completes independently.) Bathing Location: L Arm, R Arm, L Upper Leg, R Upper Leg, L Lower Leg (inclu ding foot), R Lower Leg (including foot), Chest, Abdomen, Buttocks, Perineal Area Shower/Bathe Self (QC): 5 (Sitting on BSC throughout shower, pt able to complete using grabbars and hand held shower by self after set up by covering CA M boot.) Upper Body Dressing (QC): 6 (Pt donned/doffed upper clothing independently.) Lower Body Dressing (QC): 6 (Pt. able to don/doff underwear.) On/Off Footwear: 6 (Pt. able to don/doff L sock/shoe and R CAM boot) Toileting Hygiene (QC): 6 (Using grabbars and FWW, pt able to complete independ ently.) Toilet Transfer (QC): 6 (Using grabbars and FWW, transfers independently.) BIMS CAM BIMS Expression of Ideas and Wants: Without Difficulty Understanding Verbal Content: Understands Brief Interview/Mental Status: Yes IRF DENISE BIMS: IRF DENISE BIMS Response (Comments) Value Repitition of Three Words Three 3 Recalls Socks Yes, After Cueing (Wear) 1 Recalls Blue Yes, No Cue Required 2 Recalls Bed Yes, No Cue Required 2 Year Correct 3 Month Accurate Within 5 Days 2 Day Correct 1 Total 14 Patient Normally Able to Recal: Current Session, Location of own room, Staff Names and faces, That he/she in a [facility] Should Staff Asses. Mental St.: No CAM Mental Status Change/Baseline: 0 Inattention: 0 Disorganized thinkin Altered level of consciousness: 0 OT Patient Experience Coordinator Goals Senior Care Goals Time Frame: Mar 17, 2023 Acute change in mental status: 0 Inattention: 0 Disorganized thinkin Altered level of consciousness: 0 Eating (QC): 6 (met) Oral Hygiene (QC): 6 (met) Toileting Hygiene (QC): 6 (met) Shower/Bathe Self (QC): 5 (met) Upper Body Dressing (QC): 6 (met) Lower Body Dressing (QC): 6 (met) On/Off Footwear (QC): 5 (met) Additional Goals: 1-Demonstrate ADL Tasks, 2-Verbalize Understanding, 3- ImproveStrength/Marcello 1=Demonstrate adherence to instructed precautions during ADL tasks. 2=Patient will verbalize/demonstrate understanding of assistive devices/modifications for ADL. 3=Patient will improve strength/tolerance for activity to enable patient to perform ADL's. OT Education/Plan Problem List/Assessment Assessment: Impaired Cognition, Impaired Funct Balance, Impaired Self-Care Skills Discharge Recommendations Plan/Recommendations: Discharge/Goals Met (Pt to discharge home with family and HH this date.) Treatment Plan/Plan of Care Patient would benefit from OT for education, treatment and training to promote independence in ADL's, mobility, safety and/or upper extremity function for ADL's. Plan of Care: ADL Retraining, Functional Mobility, Group Exercise/Act as Ind, UE Funct Exercise/Act Treatment Duration: Mar 17, 2023 Frequency: 5 times per week Estimated Hrs Per Day: 1.5 hours per day Rehab Potential: Good Time Start Time: 07:00 Stop Time: 07:45 DATE: Mar 06, 2023 Total Time Billed (hr/min): 45 Billed Treatment Time 1 visit-ADL 3 (45 min) ABHIJIT BAUGH Mar 06, 2023 07:32
[2023-03-06 08:00] VITALS: BP 132/61
[2023-03-06] MEDS: DOCUSATE SODIUM 100 MG CAPSULE PO SCH (09:48)
[2023-03-06] MEDS: SENNOSIDES 8.6 MG TABLET PO SCH (09:48)
[2023-03-06] MEDS: MUPIROCIN 2% OINTMENT 22 GM TUBE TOP SCH (15:13)
--- NOTE | 2023-03-06 15:58 | Physical Therapy Daily Note ---
PT Daily Note-Current Subjective Pt sitting in recliner upon arrival. Pt agrees to PT for QC scoring for d/c today. Pain Location: No Pain Reported Section J - Health Conditions 1. Rarely or not at all 2. Occasionally 3. Frequently 4. Almost constantly 8. Unable to answer Pain Effect on Sleep: 1 Pain Interference with Therapy: 2 Pain Interference w/Day-to-Day: 3 Mental Status Patient Orientation: Person, Place Attachments: Other-See Comments (CAM boot for R LE) Transfers SCALE: Activities may be completed with or without assistive devices. 5-Rqlzuiqkvz-dmcwldu completes the activity by him/herself with no assistance from a helper. 5-Set-up or Clean-up Assistance-helper sets up or cleans up; patient completes activity. [place] assists only prior to or following the activity. 4-Supervision or Touching Assistance-helper provides verbal cues and/or touching/steadying and/or contact guard assistance as patient completes activity. Assistance may be provided throughout the activity or intermittently. 3-Partial/Moderate Assistance-helper does LESS THAN HALF the effort. [place] lifts, holds or supports trunk or limbs, but provides less than half the effort. 2-Substantial/Maximal Assistance-helper does MORE THAN HALF the effort. [place] lifts or holds trunk or limbs and provides more than half the effort. 6-Jmdksixjd-huwavm does ALL the effort. Patient does none of the effort to complete the activity. Or, the assistance of 2 or more helpers is required for the patient to complete the activity. If activity was not attempted, code reason: 7-Patient Refused. 9-Not Applicable-not attempted and the patient did not perform the activity before the current illness, exacerbation or injury. 10-Not Attempted due to Environmental Limitations-(lack of equipment, weather restraints, etc.). 88-Not Attempted due to Medical Conditions or Safety Concerns. Roll Left & Right (QC): 6 Sit to Lying (QC): 6 Lying to Sitting/Side of Bed(Q: 6 Sit to Stand (QC): 6 Chair/Jlt-hj-Hwuht Xfer(QC): 6 Toilet Transfer (QC): 6 Car Transfer (QC): 6 Weight Bearing Right Lower Extremity: Right Non Weight Bearing Left Lower Extremity: Left Full Weight Bearing Cam boot on for ambulation and transfers Gait Training Does the Patient Walk?: Yes Distance: 152' Walk 10 feet (QC): 6 Walk 50 ft with 2 Turns(QC): 6 Walk 150 ft (QC): 6 Walking 10ft/uneven surface-QC: 6 Gait Assistive Device: FWW Wheelchair Training Does the Pt Use a Wheelchair?: Yes Wheel 50 ft with 2 turns (QC): 6 Wheel 150 ft (QC): 6 Type of Wheelchair: Manual Stair Training #of Steps: 0 1 Step (curb) (QC): 88 4 Steps (QC): 88 12 Steps (QC): 88 Balance Picking up an Object (QC): 6 Treatments Pt completes QC scoring items listed above except stairs as pt demonstrates difficulty and safety issues w/stairs so pt will have ramp at home. Pt returns to room to rest in recliner at end of tx. All needs met, call light in hand. Assessment Current Status: Good Progress Pt has shown good improvement in transfers and mobility but has seen plateau as pt is hopping for ambulation and unsafe to complete stairs alone. Home life is complicated at best right now. PT Facility Maintenance Worker Goals Facility Maintenance Worker Goals PT Facility Maintenance Worker Goals Time Frame: Mar 09, 2023 Roll Left & Right (QC): 6 Sit to Lying (QC): 6 Lying-Sitting on Side/Bed(QC): 6 Sit to Stand (QC): 5 Chair/Cft-zc-Ykmxv Xfer(QC): 5 Toilet Transfer (QC): 5 Car Transfer (QC): 5 Does the Patient Walk: Yes Walk 10 feet (QC): 5 (/c FWW) Walk 50ft with 2 Turns (QC): 5 (/c FWW, NWB) Walk 150 ft (QC): 4 Walking 10ft on Uneven Surface: 5 (/c FWW) 1 Step (curb) (QC): 4 (/c FWW, NWB (B) LE) 4 Steps (QC): 3 (/c 1 railing and (A) of 1 (to simulate home environment), NWB (R) LE) 12 Steps (QC): 3 (/c 1 railing and (A) of 1 (to simulate home environment), NWB (R) LE) Picking up an Object (QC): 5 (set up with community health nurse supervisor and FWW) Does the Pt use WC or Scooter?: Yes Wheel 50 feet with 2 turns (QC: 6 Type: Manual Wheel 150 feet: 6 Type: Manual PT Plan Problem List Problem List: Safety Treatment/Plan Treatment Plan: Continue Plan of Care Treatment Plan: Bed Mobility, Education, Functional Activity Marcello, Functional Strength, Group Therapy, Gait, Safety, Therapeutic Exercise, Transfers, Other (W/C mobility) Treatment Duration: Mar 09, 2023 Frequency: At least 5 of 7 days/Wk (IRF) Estimated Hrs Per Day: 1.5 hours per day Patient and/or Family Agrees t: Yes Safety Risks/Education Patient Education: Safety Issues Teaching Recipient: Patient Teaching Methods: Discussion Response to Teaching: Reinforcement Needed Pt is impulsive at times and cognition is not always the best. Time Time In: 1030 Time Out: 1100 DATE: Mar 06, 2023 Total Billed Treatment Time: 30 Total Billed Treatment 1, GT (15m) & FA (15m) LEONILA JUAREZ FUR TAILOR Mar 06, 2023 15:58
[2023-03-06 17:00] VITALS: BP 132/61
--- NOTE | 2023-03-07 08:20 | Therapy Team Discharge Summary ---
Therapy Discharge Summary Discharge Recommendations Date of Discharge Mar 06, 2023 at 17:00 Physical Therapy Pt admitted to ARU 02/23/23 s/p (R) ankle fracture ORIF, NWB with Cam boot (R) LE. She was (I) with all bed mobility and transfers /c FWW at discharge, was able to walk 152' (I) with walker NWB (R). Knee scooter was attempted, but patient stated this was more tiring than hopping NWB with the walker. Patient demonstrated significant safety issues with curbs/steps due to NWB status, therefore a ramp will be utilized at patients home /p D/C. Patient was (I) with w/c mobility and will need a w/c for community ambulation until she is able to weight bear thru the (R) LE. Recommend continued PT via home health or outpatient PT once she is able to progress weight bearing. Roll Left to Right (QC): 6 Sit to Lying (QC): 6 Lying to Sitting/Side of Bed(Q: 6 Sit to Stand (QC): 6 Chair/Evu-wk-Ljvwj Xfer(QC): 6 Toilet Transfer (QC): 5 Car Transfer (QC): 6 Does the Patient Walk: Yes Walk 10 feet (QC): 6 Walk 50 ft with 2 Turns(QC): 6 Walk 150 ft (QC): 6 Walking 10ft on uneven surface: 6 Distance: 152' Gait Assistive Device: FWW Does the Pt Use a Wheelchair: Yes Wheelchair Distance: 150' Wheel 50 ft with 2 turns (QC): 6 Wheel 150 ft (QC): 6 Type of Wheelchair: Manual #of Steps: 0 1 Step (curb) (QC): 88 4 Steps (QC): 88 12 Steps (QC): 88 Walking Assistive Device: Walker Balance Sitting Static: Normal Balance Sitting Dynamic: Good Balance-Standing Static: Fair Picking up an Object (QC): 6 (/c tax assessor) Occupational Therapy Impaired Cognition, Impaired Funct Balance, Impaired Self-Care Skills Eating (QC): 6 (Independent with opening packages/containers and eating with regular utensils.) Oral Hygiene (QC): 6 (Standing at sink stabilizing on counter, completes independently.) Shower/Bathe Self (QC): 5 (Sitting on BSC throughout shower, pt able to complete using grabbars and hand held shower by self after set up by covering CAM boot.) Upper Body Dressing (QC): 6 (Pt donned/doffed upper clothing independently.) Lower Body Dressing (QC): 6 (Pt. able to don/doff underwear.) On/Off Footwear (QC): 6 (Pt. able to don/doff L sock/shoe and R CAM boot) Toileting Hygiene (QC): 6 (Using grabbars and FWW, pt able to complete independently.) PT Care Home Goals Care Home Goals PT Care Home Goals Time Frame: Mar 09, 2023 Roll Left to Right (QC): 6 Sit to Lying (QC): 6 Lying-Sitting on Side/Bed(QC): 6 Sit to Stand (QC): 5 Chair/Cml-lo-Mmocd Xfer(QC): 5 Toilet/Commode Transfer (QC): 5 Car Transfer (QC): 5 Does the Patient Walk: Yes Walk 10 feet (QC): 5 (/c FWW) Walk 10ft-Uneven Surface(QC): 5 (/c FWW) Walk 50ft with 2 Turns (QC): 5 (/c FWW, NWB) Walk 150 ft (QC): 4 Does the Pt use WC or Scooter?: Yes Wheel 50 feet with 2 turns (QC: 6 Type: Manual Wheel 150 feet: 6 Type: Manual 1 Step (curb) (QC): 4 (/c FWW, NWB (B) LE) 4 Steps (QC): 3 (/c 1 railing and (A) of 1 (to simulate home environment), NWB (R) LE) 12 Steps (QC): 3 (/c 1 railing and (A) of 1 (to simulate home environment), NWB (R) LE) Picking up an Object (QC): 5 (set up with tax assessor and FWW) OT Meter Maintenance Person Goals Meter Maintenance Person Goals Time Frame: Mar 17, 2023 Acute change in mental status: 0 Inattention: 0 Disorganized thinkin Altered level of consciousness: 0 Eating (QC): 6 (met) Oral Hygiene (QC): 6 (met) Toileting Hygiene (QC): 6 (met) Shower/Bathe Self (QC): 5 (met) Upper Body Dressing (QC): 6 (met) Lower Body Dressing (QC): 6 (met) On/Off Footwear (QC): 5 (met) Additional Goals: 1-Demonstrate ADL Tasks, 2-Verbalize Understanding, 3- ImproveStrength/Marcello 1=Demonstrate adherence to instructed precautions during ADL tasks. 2=Patient will verbalize/demonstrate understanding of assistive devices/modifications for ADL. 3=Patient will improve strength/tolerance for activity to enable patient to perform ADL's. Desire Breaux PT Mar 07, 2023 08:20
--- NOTE | 2023-03-07 12:03 | Therapy Team Discharge Summary ---
Therapy Discharge Summary Discharge Recommendations Date of Discharge Mar 06, 2023 at 17:00 Therapy D/C Recommendations: Occupational Therapy Home Care Physical Therapy Roll Left to Right (QC): 6 Sit to Lying (QC): 6 Lying to Sitting/Side of Bed(Q: 6 Sit to Stand (QC): 6 Chair/Cfi-tn-[place] Xfer(QC): 6 Toilet Transfer (QC): 5 Car Transfer (QC): 6 Does the Patient Walk: Yes Walk 10 feet (QC): 6 Walk 50 ft with 2 Turns(QC): 6 Walk 150 ft (QC): 6 Walking 10ft on uneven surface: 6 Distance: 152' Gait Assistive Device: FWW Does the Pt Use a Wheelchair: Yes Wheelchair Distance: 150' Wheel 50 ft with 2 turns (QC): 6 Wheel 150 ft (QC): 6 Type of Wheelchair: Manual #of Steps: 0 1 Step (curb) (QC): 88 4 Steps (QC): 88 12 Steps (QC): 88 Walking Assistive Device: Walker Balance Sitting Static: Normal Balance Sitting Dynamic: Good Balance-Standing Static: Fair Picking up an Object (QC): 6 (/c corporate training manager) Occupational Therapy Pt admitted to [facility] s/p ORIF R bimalleolar ankle fx. At [facility], she was independent with ADLs and functional mobility, no AD. Upon initial evaluation, pt was independent with eating, required set up with UBD and oral care, CGA showering, toileting and LBD, and partial A with footwear. OT tx focused on increasing safety and independence with ADLs and functional mobility and increasing BUE strength and activity tolerance. Pt made good progress towards goals, attaining all LTGs. Pt discharged home with family support, d/c from OT. Impaired Cognition, Impaired Funct Balance, Impaired Self-Care Skills Eating (QC): 6 (Independent with opening packages/containers and eating with regular utensils.) Oral Hygiene (QC): 6 (Standing at sink stabilizing on counter, completes independently.) Shower/Bathe Self (QC): 5 (Sitting on BSC throughout shower, pt able to complete using grabbars and hand held shower by self after set up by covering CAM boot.) Upper Body Dressing (QC): 6 (Pt donned/doffed upper clothing independently.) Lower Body Dressing (QC): 6 (Pt. able to don/doff underwear.) On/Off Footwear (QC): 6 (Pt. able to don/doff L sock/shoe and R CAM boot) Toileting Hygiene (QC): 6 (Using grabbars and FWW, pt able to complete independently.) PT Office Administrator Goals Office Administrator Goals PT [facility] Goals Time Frame: Mar 09, 2023 Roll Left to Right (QC): 6 Sit to Lying (QC): 6 Lying-Sitting on Side/Bed(QC): 6 Sit to Stand (QC): 5 Chair/Tpz-ol-Jwpuo Xfer(QC): 5 Toilet/Commode Transfer (QC): 5 Car Transfer (QC): 5 Does the Patient Walk: Yes Walk 10 feet (QC): 5 (/c FWW) Walk 10ft-Uneven Surface(QC): 5 (/c FWW) Walk 50ft with 2 Turns (QC): 5 (/c FWW, NWB) Walk 150 ft (QC): 4 Does the Pt use WC or Scooter?: Yes Wheel 50 feet with 2 turns (QC: 6 Type: Manual Wheel 150 feet: 6 Type: Manual 1 Step (curb) (QC): 4 (/c FWW, NWB (B) LE) 4 Steps (QC): 3 (/c 1 railing and (A) of 1 (to simulate home environment), NWB (R) LE) 12 Steps (QC): 3 (/c 1 railing and (A) of 1 (to simulate home environment), NWB (R) LE) Picking up an Object (QC): 5 (set up with corporate training manager and FWW) OT Office Administrator Goals [facility] Goals Time Frame: Mar 17, 2023 Acute change in mental status: 0 Inattention: 0 Disorganized thinkin Altered level of consciousness: 0 Eating (QC): 6 (met) Oral Hygiene (QC): 6 (met) Toileting Hygiene (QC): 6 (met) Shower/Bathe Self (QC): 5 (met) Upper Body Dressing (QC): 6 (met) Lower Body Dressing (QC): 6 (met) On/Off Footwear (QC): 5 (met) Additional Goals: 1-Demonstrate ADL Tasks, 2-Verbalize Understanding, 3- ImproveStrength/Marcello 1=Demonstrate adherence to instructed precautions during ADL tasks. 2=Patient will verbalize/demonstrate understanding of assistive devices/modifications for ADL. 3=Patient will improve strength/tolerance for activity to enable patient to perform ADL's. BRADY RIZVI OT Mar 07, 2023 12:03
== END 2023-03-06 17:00 | disposition home health service (06) | DRG 561 ==
PROVIDERS: ADMIT Internal Medicine; ATTEND Internal Medicine
DX: S82.841D Displaced bimalleolar fracture of right lower leg, subsequent encounter for closed fracture with routine healing (principal); S92.331D Displaced fracture of third metatarsal bone, right foot, subsequent encounter for fracture with routine healing; S92.411D Displaced fracture of proximal phalanx of right great toe, subsequent encounter for fracture with routine healing; S92.521D Displaced fracture of middle phalanx of right lesser toe(s), subsequent encounter for fracture with routine healing; I12.9 Hypertensive chronic kidney disease with stage 1 through stage 4 chronic kidney disease, or unspecified chronic kidney disease; E11.22 Type 2 diabetes mellitus with diabetic chronic kidney disease; N18.9 Chronic kidney disease, unspecified; E78.00 Pure hypercholesterolemia, unspecified; M54.9 Dorsalgia, unspecified; G89.29 Other chronic pain; Z87.891 Personal history of nicotine dependence; Z79.82 Long term (current) use of aspirin; Z79.899 Other long term (current) drug therapy; V03.90XD Pedestrian on foot injured in collision with car, pick-up truck or van, unspecified whether traffic or nontraffic accident, subsequent encounter
CPT/HCPCS: 36415; 80053; 82947; 83036; 85025; 90662; 94760

== ENCOUNTER → 2023-03-16 | Outpatient (CLI) | payer MEDICARE, OTHER ==
[~2023-03-16] MED LIST changes: +ACET325T49 PO; +DOCU100C37 PO; +MELA3TAB39 PO; +MUPI22OI2 TOP; +ONDA4TAB11 PO; +OXC5T PO
== END ==
LOC: ORTHO 08:18
PROVIDERS: ATTEND Orthopaedic Surgery
DX: Z47.89 Encounter for other orthopedic aftercare (principal)

== ENCOUNTER → 2023-03-21 | Outpatient (CLI) | payer MEDICARE, OTHER ==
[2023-03-21 13:44] LABS: BASOPHILS # (AUTO) 0.1 10^3/uL (0.0-0.1); BASOPHILS % (AUTO) 1 % (0-10); EOSINOPHILS # (AUTO) 0.2 10^3/uL (0.0-0.3); EOSINOPHILS % (AUTO) 2 % (0-10); HEMATOCRIT 34 % (35-52); HEMOGLOBIN 10.8 g/dL (11.5-16.0); LYMPHOCYTES # (AUTO) 2.3 10^3/uL (1.0-4.0); LYMPHOCYTES % (AUTO) 25 % (12-44); MEAN CORPUSCULAR HEMOGLOBIN 30 pg (25-34); MEAN CORPUSCULAR HGB CONC 32 g/dL (32-36); MEAN CORPUSCULAR VOLUME 93 fL (80-99); MEAN PLATELET VOLUME 9.3 fL (9.0-12.2); MONOCYTES # (AUTO) 0.5 10^3/uL (0.0-1.0); MONOCYTES % (AUTO) 5 % (0-12); NEUTROPHILS # (AUTO) 6.2 10^3/uL (1.8-7.8); NEUTROPHILS % (AUTO) 67 % (42-75); PLATELET COUNT 323 10^3/uL (130-400); WHITE BLOOD COUNT 9.2 10^3/uL (4.3-11.0)
[2023-03-21 14:01] LABS: ALBUMIN 3.7 GM/DL (3.2-4.5); BILIRUBIN,TOTAL 0.2 MG/DL (0.1-1.0); CALCIUM 9.2 MG/DL (8.5-10.1); CREATININE SERUM 1.45 MG/DL (0.60-1.30); POTASSIUM 4.1 MMOL/L (3.6-5.0); TOTAL PROTEIN 7.1 GM/DL (6.4-8.2)
== END ==
LOC: WOUNDCARE 12:24
PROVIDERS: ATTEND Family Medicine
DX: S91.311A Laceration without foreign body, right foot, initial encounter (principal); I96 Gangrene, not elsewhere classified; S97.81XA Crushing injury of right foot, initial encounter; V03.10XA Pedestrian on foot injured in collision with car, pick-up truck or van in traffic accident, initial encounter; R60.0 Localized edema; E11.621 Type 2 diabetes mellitus with foot ulcer; D50.8 Other iron deficiency anemias
CPT/HCPCS: 11042; 80053; 83036; 85025; G0463; 36415

== ENCOUNTER → 2023-03-27 | Outpatient (CLI) | payer MEDICARE, OTHER | LOC: WOUNDCARE 14:29 | PROVIDERS: ATTEND Family Medicine | DX: S91.311A Laceration without foreign body, right foot, initial encounter (principal); S97.81XA Crushing injury of right foot, initial encounter; R60.0 Localized edema; D50.8 Other iron deficiency anemias; E11.621 Type 2 diabetes mellitus with foot ulcer; E11.52 Type 2 diabetes mellitus with diabetic peripheral angiopathy with gangrene; V03.10XA Pedestrian on foot injured in collision with car, pick-up truck or van in traffic accident, initial encounter | CPT/HCPCS: 11042; G0463 ==

== ENCOUNTER → 2023-04-04 | Outpatient (CLI) | payer MEDICARE, OTHER | LOC: WOUNDCARE 12:48 | PROVIDERS: ATTEND Family Medicine | DX: S91.311A Laceration without foreign body, right foot, initial encounter (principal); S97.81XA Crushing injury of right foot, initial encounter; I96 Gangrene, not elsewhere classified; E11.621 Type 2 diabetes mellitus with foot ulcer; R60.0 Localized edema; D50.8 Other iron deficiency anemias; V03.10XA Pedestrian on foot injured in collision with car, pick-up truck or van in traffic accident, initial encounter | CPT/HCPCS: 99212 ==